=== PATIENT | female | born 1950 | race Caucasian/White ===

== ENCOUNTER 2023-10-13 09:31 | Emergency (ER) | payer MEDICARE, BC, SELFPAY ==
--- NOTE | ~2023-10-13 | US_ITS ---
EXAMINATION: US ABDOMEN LIMITED CLINICAL INFORMATION: Right upper quadrant mass. COMPARISON: None available. TECHNIQUE: Real-time imaging of the right upper quadrant abdominal viscera. FINDINGS: PANCREAS: Not visualized secondary to overlying bowel gas LIVER: The liver is normal in size. The liver contour is normal. There is diffuse increased liver parenchymal echogenicity, consistent with hepatic steatosis. Some focal fatty sparing is present around the gallbladder. No suspicious solid focal hepatic lesion. There is no intrahepatic biliary duct dilatation seen. GALLBLADDER: A 5 mm gallbladder polyp is present. The gallbladder is physiologically distended without evidence of stones, sludge, wall thickening or pericholecystic fluid. COMMON BILE DUCT: Normal in caliber measuring 0.3 cm in diameter. RIGHT KIDNEY: A benign 0.9 cm Bosniak class I lower pole renal cyst is noted which requires no additional imaging or follow up. No solid renal masses are seen. No hydronephrosis. No renal calculi or focal parenchymal lesions. The kidney measures 10.9 cm in maximum dimension. FREE FLUID: None. US/US abdomen limited IMPRESSION: 1. Hepatic steatosis. 2. 5 mm gallbladder polyp. No follow up is needed.
--- NOTE | ~2023-10-13 | CT_ITS ---
EXAMINATION: CT CHEST WITH IV CONTRAST CT ABDOMEN AND PELVIS WITH IV CONTRAST CLINICAL INFORMATION: History of breast cancer. Shortness of breath. Right upper quadrant mass, bulge. COMPARISON: Abdomen ultrasound from 10/13/2023. TECHNIQUE: Multidetector CT imaging examination of the chest, abdomen and pelvis was performed with intravenous administration of 85 mL Omnipaque 350. Axial images are displayed at 0.6 mm and 5 mm slice thickness. Coronal and sagittal reformatted images were generated at the technologist's workstation and submitted for review. This CT examination was performed using dose optimization techniques as appropriate, variously including the following: *Automated exposure control *Adjustment of mA and/or kV according to patient size (this includes techniques or standardized protocols for targeted exams where dose is matched to indication/reason for exam; i.e. extremities or head) *Use of iterative reconstruction technique DLP: 913 mGy-cm FINDINGS: CHEST - LUNGS AND PLEURA: Trachea and central airways are widely patent and normal in caliber. Mild centrilobular emphysema. Mild atelectasis in dependent aspect of each lower lobe. Findings include mild subpleural reticular opacity with mild traction bronchiolectasis in the anteroinferior aspect of the right middle lobe and likely chronic mild subpleural reticular opacity in the lateral left lower lobe. No focal consolidation, pleural effusion or pneumothorax. Small 0.3 cm solid, noncalcified subpleural nodule in the posterior right upper lobe (image 143, series 8). 0.3 cm calcified granuloma in the posterior right lower lobe (image 385, series 8). CARDIOVASCULAR: The heart size is normal. No pericardial effusion. Pulmonary arteries and thoracic aorta are normal in caliber. Mild atherosclerotic calcification of the aorta. No evidence of a central pulmonary embolism. MEDIASTINUM: No evidence of mediastinal mass. The esophagus is unremarkable. LYMPHATICS: No pathologic sized axillary, hilar or mediastinal lymph nodes. BONES AND THORACIC SOFT TISSUES: There are scattered macrocalcifications in the right breast which is smaller than the left breast; correlate for remote history of lumpectomy. Multilevel discovertebral degenerative change of the thoracic spine. No acute or suspicious osseous abnormality within the thorax. ABDOMEN AND PELVIS - HEPATOBILIARY: Liver has normal size, contour and attenuation. Gallbladder is unremarkable. No dilatation of bile ducts. PANCREAS: Mildly atrophied. No edema, mass or pancreatic ductal dilatation. SPLEEN: Normal. ADRENAL GLANDS: Normal. KIDNEYS AND URETERS: Kidneys are normal in size and attenuation. A few small bilateral simple renal cysts are present. No renal imaging follow-up is recommended for simple cysts. No nephrolithiasis, hydronephrosis or perinephric fluid collection. BOWEL AND PERITONEUM: No dilated loops of bowel. The appendix is normal. No overt bowel wall thickening. No mesenteric fat stranding or pneumoperitoneum. ABDOMINAL WALL: No abdominal wall mass or hernia. VESSELS: Mild atherosclerotic calcification of the abdominal aorta without aneurysm. LYMPH NODES: No pathologic sized lymph nodes in the abdomen or pelvis. No inguinal lymphadenopathy. BLADDER: Normal. PELVIC VISCERA: No uterine or adnexal mass. Small amount of simple free fluid is present in the pelvis. There is no organized, walled off fluid collection. MUSCULOSKELETAL: Transitional lumbosacral anatomy. The lowest lumbar vertebra is considered to represent L5. Facet osteoarthritis, vacuum disc degenerative change, mild grade 1 anterolisthesis and moderate spinal canal stenosis at L3-L4. Severe degenerative disc disease at L4-L5. The lowest lumbar vertebra (considered represent L5) has a hypertrophied right transverse process that articulates with the sacrum. CT/CT abdomen pelvis w IV con IMPRESSION: * No acute pulmonary disease. No pneumonia or pleural effusion. * Small 0.3 cm noncalcified and calcified nodules of the right upper and right lower lobes, respectively. * No suspicious nodule, mass or lymphadenopathy. * No evidence of metastatic disease within the abdomen or pelvis. * There is no evidence of an abdominal hernia or mass.
[2023-10-13 09:40] VITALS: BP 161/79; PULSE 58; RESP 16; TEMP 36.8; O2SAT 97; BMI 71.0
--- NOTE | 2023-10-13 09:58 | ED_ITS ---
HPI - Chest Pain General Chief Complaint: Chest Pain Stated Complaint: sob Time Seen by Provider: 10/13/23 09:54 Source: patient and family () Mode of arrival: ambulatory Limitations: no limitations History of Present Illness ED Provider: JAMES PHILIP PA-C HPI narrative: 73-year-old female with past medical history significant for right-sided breast cancer in remission since 1994, hypothyroidism, GERD, gout presents to the emergency department for evaluation of bulge to right upper abdomen which she noticed yesterday. She admits that she occasionally has some difficulty breathing secondary to the bulge. Reports associated chest tightness and pressure which occasionally radiates to her right ear. She reports history of acid reflux however this is not currently managed with medications. Admits there was mention of hiatal hernia in the past however has not followed up regarding this. Denies cardiac history. Denies fever, chills, nausea vomiting, diaphoresis, lower extremity pain/swelling. Denies recent travel or long car rides. Related Data Allergies Allergy/AdvReac Type Severity Reaction Status Date / Time Penicillins Allergy Mild Hives Verified 10/13/23 09:48 Review of Systems 2 Review of Systems: Constitutional: No fever, chills, fatigue, night sweats, weight changes ENT/Mouth: No ear pain, hearing loss, nasal congestion, sinus pain, rhinorrhea, sore throat Eyes: No eye pain, swelling, redness, vision changes, discharge Cardio: No palpitations, KAYE, orthopnea, peripheral edema, +chest pain Pulm: No SOB, cough, sputum, wheezing, dyspnea, hemoptysis GI: No nausea, vomiting, hematemesis, abdominal pain, diarrhea, constipation, hematochezia, melena : No irregular bleeding, dysuria, frequency, urgency, hesitancy, hematuria, flank pain, urinary flow changes, urinary incontinence or retention MSK: No back pain, neck pain, joint pain, myalgias Skin: No lesions, rashes Neuro: No weakness, numbness, paresthesias, LOC, dizziness, headache Psych: No anxiety/panic, depression, SI/HI, AH/VH All other systems reviewed and are negative. [facility] Past Medical History Attestation statement: The following information was validated with the patient. Source: old records reviewed and nursing notes reviewed Social History Social History Smoked in Last 30 Days: No Substance Use Type: Marijuana Substance Use Frequency: Occasionally Last Used Substance: Hours (ago) Advance Directives: No Advance Directives Information Provided: No Do you have a plan to hurt others: No Plan Physical Exam 2 Vital Signs: Vital Signs: Last Vital Signs Temp 98 F 10/13/23 15:01 Pulse 88 10/13/23 15:01 Resp 18 10/13/23 15:01 BP 130/70 10/13/23 15:01 Pulse Ox 98 10/13/23 15:01 O2 Del Method Room Air 10/13/23 15:01 BMI result Body Mass Index 71.0 Vital signs stable Const: General: cooperative, healthy appearing, comfortable and no acute distress Orientation/consciousness: patient oriented x3 Limitations: no limitations HEENT: Head: Yes normal to inspection, Yes No palpable skull fracture present, Yes normocephalic and Yes atraumatic Eyes: General: appearance normal, both eyes and all related structures C onjunctivae: conjunctivae normal Sclerae: sclerae normal Pupils: Equal, round and reactive pupils present EOM: EOMs intact bilaterally Neck: Neck: Yes normal visual inspection, Yes full ROM, Yes no lymphadenopathy and Yes no JVD Chest: Chest palpation & inspection: normal inspection of the chest and normal palpation of entire chest wall Resp: Effort & Inspection: normal respiratory effort and able to speak in complete sentences Auscultation: clear to auscultation bilaterally Cardio: Other: + 2+ radial pulses Jugular venous distension: no JVD Rate: regular rate Rhythm: regular rhythm GI: Other: + palpable bulge to RUQ. Abdomen otherw ise soft, rounded, nontender to palpation, no rebound tenderness or guarding. Normoactive bowel sounds. Inspection: Yes normal to inspection Skin: General skin exam: no rashes or lesions noted Neuro: General: patient oriented x3 and gait normal Cranial nerves: Yes Equal, round and reactive pupils present Extrem: General: Yes normal to inspection Course Course Course Narrative: 1434-- CBC without leukocytosis or left shift. No anemia. H&H stable. Chemistry without acute electrolyte abnormality requiring intervention. Normal liver and renal function. Troponin undetectable. EKG showing sinus bradycardia at a rate of 57 beats per minute, QT 438, QTC 426, no acute ischemic changes or ST elevations. ACS unlikely. She has tested negative for COVID, flu, RSV. Abdominal ultrasound showing incidental finding of hepatic steatosis along with 5 mm gallbladder polyp with which no further follow-up is necessary. CT chest without acute pulmonary disease, pneumonia or pleural effusion. There are incidental findings of small 0.3 cm noncalcified and calcified nodules within the right upper and right lower lobes. No suspicious nodule, mass or lymphadenopathy noted. CT abdomen / pelvis without mass or bleed. No obvious hernia. > I discussed all findings with patient. Unclear etiology for patient's abdominal bulge. On my re-evaluation, diaphragm is even on both sides. I can no longer appreciate any mass/ buldge. I have suspicion for possible reducible abdominal wall hernia that may be pushing up on the diaphragm at times making it somewhat difficult for patient to breathe. I advised patient follow up with her primary care provider for next steps. > Patient has remained stable throughout ED visit today. Discussed worrisome signs and symptoms and when to return to the ED. All questions answered at this time. Patient is agreeable with disposition and stable for discharge. Medications Administered Discontinued Medications Generic Name Dose Route Start Last Admin Trade Name Freq PRN Reason Stop Dose Admin Iohexol 85 ml 10/13/23 12:32 10/13/23 12:33 Iohexol 350 Mg/Ml 100 Ml Infus..Btl IV 10/13/23 12:33 85 ml ONCE ONE Administration Methylprednisolone Sodium Succinate 125 mg 10/13/23 10:18 10/13/23 12:06 Methylprednisolone Sod Succ 125 Mg/2 Ml Vial IVPUSH 10/13/23 10:19 125 mg ONCE ONE Administration Medical Decision Making Medical Decision Making [facility] Narrative: 73-year-old female with past medical history significant for right-sided breast cancer in remission since 1994, hypothyroidism, GERD, gout presents to the emergency department for evaluation of bulge to right upper abdomen which she noticed yesterday. Patient initially hypertensive to 161/79. Vitals otherwise WNL. She is nontoxic-appearing and in no acute distress. On exam, palpable bulge noted otherwise soft, nondistended, nontender to palpation, no rebound tenderness or guarding. Normoactive bowel sounds x4. Diaphragm appears equal on both sides. Differential diagnosis includes ACS, arrhythmia, costochondritis, pleuritis, msk sprain/ strain, hernia. Lower suspicion for PE, effusion, rupture aneurysm. Plan for labs, ekg, cxr, and re-evaluation. Differential Diagnosis Differential Diagnoses: The differential diagnosis associated with the presentation includes as above. Admission/Observation Not indicated. Lab Data MDM Lab Attestation statement: I reviewed the patient's lab results. as above. 10/13/23 11:28 10/13/23 11:28 Labs: Lab Results 10/13/23 Range/Units 11:28 WBC 4.0 L (4.8-10.8) X10*3/uL RBC 4.35 (4.20-5.50) X10*6/uL Hgb 13.9 (12.0-16.0) g/dl Hct 41.8 (37.0-47.0) % MCV 96.1 (80.0-98.0) fL MCH 32.0 (27.0-33.0) pg MCHC 33.3 (31.0-35.0) g/dl RDW 13.0 (11.0-16.0) % Plt Count 278 (160-400) X10*3/uL MPV 10.7 (9.4-12.3) fL Immature Gran % (Auto) 0.5 H (0.0-0.4) % Neut % (Auto) 56.9 (45-73) % Lymph % (Auto) 31.3 (20-40) % [place] % (Auto) 8.3 (2-11) % Eos % (Auto) 2.5 (0-4) % Baso % (Auto) 0.5 (0-2) % Lymph # (Auto) 1.2 (1.2-4.9) X10*3/uL [place] # (Auto) 0.3 (0.1-1.2) X10*3/uL Eos # (Auto) 0.1 (0.0-0.4) X10*3/uL Baso # (Auto) 0.0 (0.0-0.2) X10*3/uL Abs Immat Gran (auto) 0.02 (0.00-0.03) X10*3/uL Absolute Neuts (auto) 2.3 (2.0-8.3) x10*3/uL Absolute Nucleated RBC 0.000 (0.0-0.012) X10*3/uL Nucleated RBC % (auto) 0.0 (0.0-0.2) /100WBC Sodium 140 (135-145) mmol/L Potassium 5.0 (3.3-5.1) mmol/L Chloride 107 (96-108) mmol/L Carbon Dioxide 26 (22-29) mmol/L Anion Gap 12 (12-20) BUN 16 (9-16) mg/dL Creatinine 0.98 (0.5-1.4) mg/dL Estim Creat Clear Calc 91.4 Estimated GFR 56 Random Glucose 103 (60-115) mg/dL Calcium 9.4 (8.4-10.2) mg/dL Magnesium 2.2 (1.6-2.6) mg/dL Total Bilirubin 0.6 (0.0-1.0) mg/dL AST 24 (5-31) U/L ALT 22 (0-31) U/L Alkaline Phosphatase 62 (39-117) U/L Troponin I High Sens < 2.7 (<3.5-17.0) ng/L Total Protein 6.9 (6.5-8.0) g/dL Albumin 4.0 (3.5-5.0) g/dL Lipase 38 (8-78) U/L TSH 1.00 (0.32-4.0) uIU/mL Influenza Type A (PCR) NEGATIVE (Negative) Influenza Type B (PCR) NEGATIVE (Negative) RSV RNA Qual (PCR) NEGATIVE (Negative) SARS-CoV-2 RNA (RT-PCR) NEGATIVE (Negative) Independent Interpretation I performed an independent interpretation of an: EKG and Plain X-Ray Interpretation: EKG showing sinus bradycardia at a rate of 57 beats per minute, QT 438, QTC 426, no acute ischemic changes or ST elevations. CT chest Without focal consolidation or infiltrate, agree with radiologist's interpretation. CT abdomen/pelvis without acute bleed or mass, agree with radiologist's interpretation. Right upper quadrant abdominal ultrasound without evidence gallbladder wall thickening, agree with radiologist's interpretation. Radiology Impression Discussion of test interpretation with radiology: I have reviewed the radiologist's reading. Radiologist Impression: EXAMINATION: CT CHEST WITH IV CONTRAST CT ABDOMEN AND PELVIS WITH IV CONTRAST CLINICAL INFORMATION: History of breast cancer. Shortness of breath. Right upper quadrant mass, bulge. COMPARISON: Abdomen ultrasound from 10/13/2023. TECHNIQUE: Multidetector CT imaging examination of the chest, abdomen and pelvis was performed with intravenous administration of 85 mL Omnipaque 350. Axial images are displayed at 0.6 mm and 5 mm slice thickness. Coronal and sagittal reformatted images were generated at the technologist's workstation and submitted for review. This CT examination was performed using dose optimization techniques as appropriate, variously including the following: *Automated exposure control *Adjustment of mA and/or kV according to patient size (this includes techniques or standardized protocols for targeted exams where dose is matched to indication/reason for exam; i.e. extremities or head) *Use of iterative reconstruction technique DLP: 913 mGy-cm FINDINGS: CHEST - LUNGS AND PLEURA: Trachea and central airways are widely patent and normal in caliber. Mild centrilobular emphysema. Mild atelectasis in dependent aspect of each lower lobe. Findings include mild subpleural reticular opacity with mild traction bronchiolectasis in the anteroinferior aspect of the right middle lobe and likely chronic mild subpleural reticular opacity in the lateral left lower lobe. No focal consolidation, pleural effusion or pneumothorax. Small 0.3 cm solid, noncalcified subpleural nodule in the posterior right upper lobe (image 143, series 8). 0.3 cm calcified granuloma in the posterior right lower lobe (image 385, series 8). CARDIOVASCULAR: The heart size is normal. No pericardial effusion. Pulmonary arteries and thoracic aorta are normal in caliber. Mild atherosclerotic calcification of the aorta. No evidence of a central pulmonary embolism. MEDIASTINUM: No evidence of mediastinal mass. The esophagus is unremarkable. LYMPHATICS: No pathologic sized axillary, hilar or mediastinal lymph nodes. BONES AND THORACIC SOFT TISSUES: There are scattered macrocalcifications in the right breast which is smaller than the left breast; correlate for remote history of lumpectomy. Multilevel discovertebral degenerative change of the thoracic spine. No acute or suspicious osseous abnormality within the thorax. ABDOMEN AND PELVIS - HEPATOBILIARY: Liver has normal size, contour and attenuation. Gallbladder is unremarkable. No dilatation of bile ducts. PANCREAS: Mildly atrophied. No edema, mass or pancreatic ductal dilatation. SPLEEN: Normal. ADRENAL GLANDS: Normal. KIDNEYS AND URETERS: Kidneys are normal in size and attenuation. A few small bilateral simple renal cysts are present. No renal imaging follow-up is recommended for simple cysts. No nephrolithiasis, hydronephrosis or perinephric fluid collection. BOWEL AND PERITONEUM: No dilated loops of bowel. The appendix is normal. No overt bowel wall thickening. No mesenteric fat stranding or pneumoperitoneum. ABDOMINAL WALL: No abdominal wall mass or hernia. VESSELS: Mild atherosclerotic calcification of the abdominal aorta without aneurysm. LYMPH NODES: No pathologic sized lymph nodes in the abdomen or pelvis. No inguinal lymphadenopathy. BLADDER: Normal. PELVIC VISCERA: No uterine or adnexal mass. Small amount of simple free fluid is present in the pelvis. There is no organized, walled off fluid collection. MUSCULOSKELETAL: Transitional lumbosacral anatomy. The lowest lumbar vertebra is considered to represent L5. Facet osteoarthritis, vacuum disc degenerative change, mild grade 1 anterolisthesis and moderate spinal canal stenosis at L3-L4. Severe degenerative disc disease at L4-L5. The lowest lumbar vertebra (considered represent L5) has a hypertrophied right transverse process that articulates with the sacrum. CT/CT chest w IV con IMPRESSION: * No acute pulmonary disease. No pneumonia or pleural effusion. * Small 0.3 cm noncalcified and calcified nodules of the right upper and right lower lobes, respectively. * No suspicious nodule, mass or lymphadenopathy. * No evidence of metastatic disease within the abdomen or pelvis. * There is no evidence of an abdominal hernia or mass. EXAMINATION: US ABDOMEN LIMITED CLINICAL INFORMATION: Right upper quadrant mass. COMPARISON: None available. TECHNIQUE: Real-time imaging of the right upper quadrant abdominal viscera. FINDINGS: PANCREAS: Not visualized secondary to overlying bowel gas LIVER: The liver is normal in size. The liver contour is normal. There is diffuse increased liver parenchymal echogenicity, consistent with hepatic steatosis. Some focal fatty sparing is present around the gallbladder. No suspicious solid focal hepatic lesion. There is no intrahepatic biliary duct dilatation seen. GALLBLADDER: A 5 mm gallbladder polyp is present. The gallbladder is physiologically distended without evidence of stones, sludge, wall thickening or pericholecystic fluid. COMMON BILE DUCT: Normal in caliber measuring 0.3 cm in diameter. RIGHT KIDNEY: A benign 0.9 cm Bosniak class I lower pole renal cyst is noted which requires no additional imaging or follow up. No solid renal masses are seen. No hydronephrosis. No renal calculi or focal parenchymal lesions. The kidney measures 10.9 cm in maximum dimension. FREE FLUID: None. US/US abdomen limited IMPRESSION: 1. Hepatic steatosis. 2. 5 mm gallbladder polyp. No follow up is needed. Independent Historian Clinical information obtained from an independent historian. History obtained from or confirmed by: Spouse () External Record Review External record reviewed: Inpatient record, Office record, Outpatient record, Prior outpatient labs, Prior outpatient radiology, Primary care record and Outside ED record Social Determinants Patient?s care significantly limited by Social Determinants of Health including: Other Social Determinant of Health Critical Care Time Critical Care Time Critical Care Time: No Discharge Plan Discharge Clinical Impression: Abdominal fullness in right upper quadrant, Fatty liver, Incidental lung nodule, > 3mm and < 8mm Patient Disposition: Home, Self-Care Instructions: Liver Disease Diet (DC), Gastroesophageal Reflux Disease (ED), Acute Abdominal Pain (DC), Non-Alcoholic Fatty Liver Disease (ED), Pulmonary Nodules (ED) Additional Instructions: Your blood work today is reassuring. You tested negative for covid/rsv/flu. Your abdominal ultrasound shows incidental finding of fatty liver. See attached papers for diet modifications. You may also follow up with your PCP regarding this. CT scan of your abdomen is normal. CT scan of your chest shows tiny calcified nodules. No masses. This is something that should be followed up with your PCP for monitoring. As discussed, please follow up with your PCP. Return with new or worsening symptoms. In the case of an emergency call 911. Interventions: ED Discharge Assessment Last Done: 10/13/23 15:01 Discharge Date/Time: 10/13/23 15:02 Print Language: Grenadian
--- NOTE | 2023-10-13 10:18 | ECG_ITS ---
Test Reason : chest tightness Blood Pressure : / mmHG Vent. Rate : 057 BPM Atrial Rate : 057 BPM P-R Int : 168 ms QRS Dur : 074 ms QT Int : 438 ms P-R-T Axes : 017 050 043 degrees QTc Int : 426 ms Sinus bradycardia Otherwise normal ECG No previous ECGs available Referred By: Erika Gaffney Electronically Signed By:GEORGE KIMBLE MD
[2023-10-13 11:11] VITALS: BP 143/68; PULSE 55; RESP 12; O2SAT 97
[2023-10-13 11:33] LABS: MANUAL DIFF FLAG NO
[2023-10-13 11:35] LABS: Basophils Percent Auto 0.5 % (0-2); Eosinophils Absolute Auto 0.1 X10*3/uL (0.0-0.4); Eosinophils Percent Auto 2.5 % (0-4); Hematocrit 41.8 % (37.0-47.0); Hemoglobin 13.9 g/dl (12.0-16.0); Imm Gran Abs Auto 0.02 X10*3/uL (0.00-0.03); Imm Gran Pct Auto 0.5 % (0.0-0.4); Lymphocytes Absolute Auto 1.2 X10*3/uL (1.2-4.9); Lymphocytes Percent Auto 31.3 % (20-40); Mean Corpuscular HGB Conc 33.3 g/dl (31.0-35.0); Mean Corpuscular Volume 96.1 fL (80.0-98.0); Mean Platelet Volume 10.7 fL (9.4-12.3); Monocytes Absolute Auto 0.3 X10*3/uL (0.1-1.2); Monocytes Percent Auto 8.3 % (2-11); Neutrophils Absolute Auto 2.3 x10*3/uL (2.0-8.3); Neutrophils Percent Auto 56.9 % (45-73); Platelet Count 278 X10*3/uL (160-400); Red Blood Count 4.35 X10*6/uL (4.20-5.50)
[2023-10-13 11:52] LABS: Alanine Aminotransferase 22 U/L (0-31); Alkaline Phosphatase 62 U/L (39-117); Anion Gap 12 (12-20); Aspartate Amino Transferase 24 U/L (5-31); Bilirubin Total 0.6 mg/dL (0.0-1.0); Blood Urea Nitrogen 16 mg/dL (9-16); Calcium 9.4 mg/dL (8.4-10.2); Carbon Dioxide 26 mmol/L (22-29); Chloride 107 mmol/L (96-108); Creatinine Clr Calc Pharmacy 91.4; Estimated Glomerular Filt Rate 56; Glucose Random 103 mg/dL (60-115); Lipase 38 U/L (8-78); Magnesium 2.2 mg/dL (1.6-2.6); Sodium 140 mmol/L (135-145); Total Protein 6.9 g/dL (6.5-8.0)
[2023-10-13 11:57] LABS: Troponin-I High Sensitivity < 2.7 ng/L (<3.5-17.0)
[2023-10-13] MEDS: methylPREDNISolone Sod Succ 125 MG/2 ML VIAL IVPUSH (12:06)
[2023-10-13 12:14] LABS: Influenza A PCR NEGATIVE (Negative); Influenza B PCR NEGATIVE (Negative); Resp Syncy Virus RNA Qual PCR NEGATIVE (Negative); SARS COV2 PCR INHOUSE NEGATIVE (Negative)
[2023-10-13] MEDS: iohexoL 350 MG/ML 100 ML INFUS..BTL 85 ML IV (12:33)
[2023-10-13 15:01] VITALS: BP 130/70; PULSE 88; RESP 18; TEMP 36.6; O2SAT 98
== END 2023-10-13 15:02 | disposition home or self-care (01) ==
PROVIDERS: Physician Assistant Medical; Emergency Provider Emergency Medicine; PCP Internal Medicine
DX: R07.89 Other chest pain (principal); R06.02 Shortness of breath; R10.11 Right upper quadrant pain; K76.0 Fatty (change of) liver, not elsewhere classified; R91.1 Solitary pulmonary nodule; R53.83 Other fatigue; R00.1 Bradycardia, unspecified; Z79.899 Other long term (current) drug therapy; Z85.3 Personal history of malignant neoplasm of breast; Z03.818 Encounter for observation for suspected exposure to other biological agents ruled out
CPT/HCPCS: 0241U; 36415; 71260; 74177; 76705; 80053; 83690; 83735; 84443; 84484; 85025; 93005; 96374; 99284; J2919; Q9967

== ENCOUNTER → 2023-10-13 10:18 | Outpatient (BNV) | payer MEDICARE, BC, SELFPAY | PROVIDERS: Emergency Provider Emergency Medicine; PCP Internal Medicine; Visit Provider Internal Medicine Cardiovascular Disease | DX: R07.89 Other chest pain (principal); R00.1 Bradycardia, unspecified | CPT/HCPCS: 93010 ==

== ENCOUNTER 2025-03-22 06:01 | Emergency (ER) | payer MEDICARE, BC, SELFPAY ==
--- OUTSIDE RECORDS SUMMARY | 2020-11-27 10:33 | XMS_ITS | Encounter Summary ---
Author Organization [facility] Address [facility] [address] [place] [address] Phone Care Team Providers Care Meteorology Instructor Name Role Phone Torsten Weller MD Primary Care Provider [phone] Encounter Details Date Type Department Care Team (Late st Contact Info) Description 11/27/2020 11:33 AM EDT Hospital Encounter [facility] [address] [place] [address] Blanca Nair, GRID INSPECTOR[address] [address] [email or web address] Social History Tobacco Use Types Packs/Day Years Used Date Smoking Tobacco: Former Cigarettes Q uit: 1980 Smokeless Tobacco: Never Alcohol Use Standard Drinks/Week Comments Never 0 (1 standard drink = 0.6 oz pur e alcohol) sober since 01/19 Child or Family Care Answer Date Record ed Do you have problems with on e of the following making it difficult for you to work, study, or receive health care? No 07/11/2021 Education Answer Date Recorded Are you interested in more education? Not on duncan e 07/14/2023 Are you concerned about learning? Not on file 07/14/2023 No 07/14/2023 No 07/14/2023 Food Answer Date Recorded Within the past 6 months we worried whether our food would run out before we got money to buy more. Never True 07/11/2021 Within the past 6 months the food we bought just didn't last and we didn't have enough money to get more. Never True Residential Stability Answer Date Recor ded What is your housing situation today? I have bony ramon 07/11/2021 How many times have you move d in the past 12 months? Zero (I did not move) 07/11/2021 Paying for Meds Answer Date Recorded Do you have trouble paying for medicines? No 07/11/2021 Paying Utility Bills Answer Date Record ed Do you have trouble paying your heating or elect ricity bill? No 07/11/2021 Transportation Answer Date Recorded Has the lack of transportati on kept you from medical appointments or from getting medications? No 07/11/2021 Unemployment Answer Date Recorded Are you currently unemployed or working on a part-time or temporary basis, and looking for work? No 07/11/2021 Digital Access Answer Date Recorded No 08/27/2022 No 08/27/2022 Reliable internet access at home? Not on file 08/27/2022 Device with a working camera? Not on file Intimate Partner Violence Answer Date R ecorded Denied Basic Needs Not on file 05/11/2024 In the past 12 months have y ou been in a relationship with a person who hurts, threatens, or tries to control you? No 05/11/2024 Worried food would run out Not on file 05/11 In the past 12 months have y ou been in a relationship with a person who hurts, threatens, or tries to control you? 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 Not on file Not on file documented as of this encounter Plan of Treatment Upcoming Encounters Date Type Department Care Team (Late st Contact Info) Description 11/17/2024 Procedure Pass [address] [address] 07/04/2025 12:30 PM EDT Appointment [facility] [address] [place] [address] Sofie Velazquez MD [address] [facility], 2nd [place] [address] [email or web address] documented as of this encounter Procedures Procedure Name Priority Date/Time Associated Diagnosis Comments XR TOES 2 OR MORE VIEWS (LEFT) Urgent/patient waiting 11/27/2020 11:44 AM EDT Injury of left great toe, initial encounter documented in this encounter Results * XR Toes 2 or More Views (Left) (11/27/2020 11:44 AM EDT) Anatomical Region Laterality Modality Foot Left Computed Radiogr aphy 11/27/2020 12:1 0 PM EDT Impressions 11/27/2020 12:37 PM EDT No fracture or dislocation. ATTESTATION: Alexsandra Singh as teaching physician, have reviewed the images for this case and if necessary edited the report originally created by Jim Pimentel. Narrative 11/27/2020 12:37 PM EDT XR TOES 2 OR MORE VIEWS (LEFT) INDICATION: Left great toe pain after injury last night. COMPARISON: None. FINDINGS: No fracture. Normal alignment. Normal joint spaces. No soft tissue swelling. Procedure Note Alexsandra Gar MD - 11/27/2020 XR TOES 2 OR MORE VIEWS (LEFT) INDICATION: Left great toe pain after injury last night. COMPARISON: None. FINDINGS: No fracture. Normal alignment. Normal joint spaces. No softtissue swelling. IMPRESSION: No fracture or dislocation. ATTESTATION: Alexsandra Singh as teaching physician, have reviewed theimages for this case and if necessary edited the report originally createdby Jim Pimentel. Blanca Nair GRID INSPECTOR IMG XR LOWER EXTREMITY Josephine l Result documented in this encounter Visit Diagnoses Not on filedocumented in this encounter Additional Health Concerns Infection Onset Date Last Indicated Resolved Time COVID-19 12/29/2022 12/29/2022 01/19/2023 1:32 AM EDT documented as of this encounter Care Teams Meteorology Instructor Relationship Specialty Start Date End Date Torsten Weller MD [email or web address] PCP - General Family Medicine 04/21/17 03/05/21 documented as of this encounter Additional Source Comments The information contained in this document represents components of the legal health record. It is not the complete legal health record.[facility]
--- OUTSIDE RECORDS SUMMARY | 2023-11-04 04:00 | XMS_ITS ---
Author Organization [facility] [address] [place] Address [address] [place] [address] Care Team Providers Care Assistant Professor Of Archaeology Name Role Phone Hortencia CHURCHILL, Partha Primary Care Provider [facility] [phone] Encounters Encounter Location Date Provider Diagnosis [address] [address] 11/04/2023 Antonio Munoz Plan Of Treatment No Information Progress Notes * Lilly DHALIWAL BDOB: [birth year] (74 yo F)Acc No.[id number]:11/04/2023 Progress Note Patient: Lilly HALEY Provider: Vaibhav Mena DPM :1950 A ge:73 Y S ex:Female Date:11/04/2023 Address:[address] [id number] Pcp:Partha Burnett MD Subjective: * Chief Complaints: * * Medical History: Objective: * Vitals: Assessment: Plan: * Treatment: * Images: * The named appointment provid er may or may not be the originator of this progress note, and it is not deemed complete until electronically signed by the appointment provider. Sign off status: Pending * Provider: Vaibhav Mena DPM Date: 0 11/04/2023 Generated for Renee jiménez/Linda/Brittanysmitting on: 05/23/2024 08:11 AM EST
--- OUTSIDE RECORDS SUMMARY | 2023-11-06 05:15 | XMS_ITS ---
Author Organization [facility] Address [address] [place] [address] Care Team Providers Care Knotter Name Role Phone Hortencia CHURCHILL, Partha Primary Care Provider UnaAntonio Cole [phone] Chavarria Encounters Encounter Location Date Provider Diagnosis [facility] [address] [place] [address] 11/06/2023 Antonio Munoz Plan Of Treatment No Information Progress Notes * Lilly DHALIWAL BDOB: [birth year] (74 yo F)Acc No.[id number]:11/06/2023 Progress Notes Patient: Lilly HALEY Provider: Vaibhav Mena DPM :1950 A ge:73 Y S ex:Female Date:11/06/2023 Address: [address] [id number] Pcp:Partha Burnett MD Subjective: * Chief Complaints: [...] 11/06/2023 Generated for Printi ng/Fajordang/eTransmitting on: 1 05/23/2024 08:11 AM EST
--- NOTE | ~2025-03-22 | XR_ITS ---
EXAMINATION: XR LUMBAR SPINE 2-3 VIEWS HISTORY: pain COMPARISON: Correlation is made with a CT of the abdomen and pelvis dated 10/13/2023. FINDINGS: AP, lateral, and coned down views of the lumbar spine are submitted. Osseous mineralization is normal. Five nonrib-bearing lumbar vertebral bodies are identified, maintaining normal height without evidence of fracture. There is grade I spondylolisthesis of L3 on L4, as noted on CT.. There is severe degenerative disc disease at the L4-5 level, with disc space narrowing and osteophyte formation. Milder changes are noted at the remaining levels. There is osteoarthritis of the facet joints. The visualized paraspinal soft tissues are unremarkable. XR/XR lumbar spine 2-3V IMPRESSION: Grade I spondylolisthesis of L3 on L4. Degenerative changes as described. Electronically signed by: Arden Everett MD 03/22/2025 08:44 AM [facility]
--- NOTE | ~2025-03-22 | CT_ITS ---
EXAMINATION: CT LUMBAR SPINE WITHOUT CONTRAST CLINICAL INFORMATION: Lumbar back pain COMPARISON: X-ray [address] abdomen pelvis October 13, 2023 TECHNIQUE: Axial imaging was performed from mid T12 through the lower sacrum coccygeal region without IV contrast. Coronal and sagittal reformatted images were generated from the original axial data set. ALARA: The examination used one or more of the following radiation dose reduction techniques: Automated exposure control, iterative reconstruction, and/or adjustment of mA and/or kV. FINDINGS: There are mild atherosclerotic calcifications. There is a small benign simple renal cyst involving the medial mid left kidney. There are 5 gno-xqn-tzzbihh lumbar segments. There is sacralization of L5 with broad pseudoarticulation of the right and minimal pseudoarticulation of the left transverse processes. There is degenerative sclerosis and osteophytes involving the right pseudoarticulation. Evaluation of disc spaces and neural foramina is limited compared to MRI. T12-L1: There is mild loss of disc height and degenerative endplate changes with Schmorl's nodes and broad-based disc bulge. L1-L2: There is mild loss disc height and small Schmorl's nodes with broad-based disc bulge. L2-L3: Ligament flavum thickening and broad-based disc bulge results in mild spinal stenosis and mild foraminal narrowing, greater on the left. L3-L4: There is subtle anterolisthesis, mild loss of disc height, vacuum phenomena, and broad-based disc bulge. There is moderate facet arthropathy and ligamentum flavum thickening resulting in moderate to severe spinal stenosis and minimal foraminal narrowing. L4-L5: There is severe loss of disc height with degenerative endplate changes, endplate sclerosis, endplate osteophytes and minimal grade 1 retrolisthesis. There is moderate facet arthropathy and mild, possibly moderate spinal stenosis. There is moderate bilateral foraminal narrowing. L5-S1: There is minimal disc bulge and endplate osteophytes with mild facet arthropathy not clearly narrowing the spinal canal. There is mild bilateral foraminal narrowing, greater on the right. CT/CT lumbar spine wo IV con IMPRESSION: Multilevel degenerative disc disease and facet arthropathy. No acute bony abnormality. L2-L3: There is mild spinal stenosis. L3-L4: There is moderate to severe spinal stenosis. L4-L5: There is mild, possibly moderate spinal stenosis. There is moderate bilateral foraminal narrowing. Electronically signed by: Juan A Celeste MD 03/22/2025 11:08 AM [facility]
[2025-03-22 06:04] VITALS: BP 177/77; PULSE 57; RESP 20; TEMP 36.1; O2SAT 100; BMI 27.8
--- OUTSIDE RECORDS SUMMARY | 2025-03-22 08:11 | XMS_ITS | Encounter Summary ---
Author Organization [facility] Address [address] [facility] [address] [place] [address] Phone Care Team Providers Care Human Resources Analyst Name Role Phone Partha Burnett MD Primary Care Provider [phone] Alycia Rolle MD Unavailable [phone] Partha Burnett MD Unavailable [phone] Encounter Details Date Type Department Care Team (Late st Contact Info) Description 02/10/2024 Procedure Pass [facility] - [address] [place] [address] Social History Tobacco Use Types Packs/Day Years [...] Intimate Partner Violence Answer Date R ecorded Are you denied basic needs s uch as food, clothing, or medical care? No 07/24/2022 In the past 12 months have y ou been in a relationship with a person who hurts, threatens, or tries to control you? No 07/24/2022 Are you denied basic needs s uch as food, clothing, or medical care? No 07/24/2022 In the past 12 months have y ou been in a relationship with a person who hurts, threatens, or tries to control you? 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 Not on file documented as of this encounter Plan of Treatment Upcoming Encounters Date Type Department Care Team (Late st Contact Info) Description 11/17/2024 Procedure Pass [address] [address] 07/04/2025 12:30 PM EDT Appointment [facility] Main [facility] [address] [place] [address] Sofie Velazquez MD [address] [facility], 2nd [place] [address] [email or web address] documented as of this encounter Visit Diagnoses Not on filedocumented in this encounter Additional Health Concerns Assessment Noted Time PHQ-2 Depression Total Score: 1 05/11/19 25 8:14 AM EST documented as of this encounter Care Teams Human Resources Analyst Relationship Specialty Start Date End Date Partha Burnett MD [address] [facility], [address] [place] [address] PCP - General Internal Medicine 07/11/21 Alycia Rolle MD [address] [facility], [address] [place] [address] Obstetrics and Gynecology 07/11/21 Partha Burnett MD [address] [facility], [address] [place] [address] Insurance Assigned Provider 07/05/23 documented as of this encounter Additional Source Comments The information contained in this document represents components of the legal health record. It is not the complete legal health record.[facility]
--- OUTSIDE RECORDS SUMMARY | 2025-03-22 08:11 | XMS_ITS | Encounter Summary ---
Author Organization [facility] Address [address] [place] [address] Phone Care Team Providers Care Warehouse Operations Manager Name Role Phone Torsten Weller MD Primary Care Provider [phone] Moira Griffin MD Primary Care Provider Partha Burnett MD Primary Care Provider [phone] Alycia Rolle MD Unavailable [phone] Partha Burnett MD Unavailable [phone] Reason for Referral * Physical Therapy (Routine) - Closed Specialty Diagnoses / Procedures Referred By Duyen hyde Referred To Contact Physical Therapy Diagnoses Encounter for rehabilitation Torsten Weller MD Phone: tel: fax: [email or web address] [facility] [address] [place] [address] Phone: tel: Referral ID Status Reason Start Date Expiration Date Visits Re quested Visits Authorized [id number] Closed 03/06/2018 03/06/2019 16 16 Encounter Details Date Type Department Care Team (Late st Contact Info) Description 03/06/2018 Transcribe Orders [facility] [address] [place] [address] Torsten Weller MD [address] [place] [address] [place] [address] [email or web address] Encounter for rehabilitation (Primary Dx) Social History Tobacco Use Types Packs/Day Years Used Date Smoking Tobacco: Never Assessed Comments Unknown Sex and Gender Information Value Date Recorded Sex Assigned at Female 02/18/2021 8:19 AM EST Legal Sex Female 4:20 PM EST Gender Identity Female 12/29/2022 8:47 AM EDT Sexual Orientation Straight 02/18/2021 8: 19 AM EST documented as of this encounter Plan of Treatment Upcoming Encounters Date Type Department Care Team (Late st Contact Info) Description 11/17/2024 Procedure Pass [address] [address] 07/04/2025 12:30 PM EDT Appointment [address] [address] Sofie Velazquez MD 15 [facility], [address] [place] [address] [email or web address] Scheduled Referrals Name Type Priority Associated Diagnoses Orde r Schedule Ambulatory referral to [facility] Physical Therapy Outpatient Referral Routine Encounter for rehabilitation Ordered: 03/06/2018 documented as of this encounter Visit Diagnoses Diagnosis Encounter for rehabilitation- Primary documented in this encounter Additional Health Concerns Infection Onset Date Last Indicated Resolved Time CoV-Risk 07/23/2020 07/23/2020 2020 1:23 AM EDT COVID-19 12/29/2022 12/29/2022 01/19/2023 1:32 AM EDT documented as of this encounter Care Teams Warehouse Operations Manager Relationship Specialty Start Date End Date Torsten Weller MD PCP - General Family Medicine 04/21/17 03/05/21 Moira Griffin MD [email or web address] PCP - General Internal Medicine 03/06/21 07/10/21 Partha Burnett MD [address] [place] [address], [address] [place] [address] PCP - General Internal Medicine 07/11/21 Alycia Rolle MD [address] [place] [address], [address] [place] [address] [email or web address] Obstetrics and Gynecology 07/11/21 Partha Burnett MD [address] [place] [address], [address] [place] [address] [email or web address] Insurance Assigned Provider 07/05/23 documented as of this encounter Additional Source Comments The information contained in this document represents components of the legal health record. It is not the complete legal health record.[facility]
--- OUTSIDE RECORDS SUMMARY | 2025-03-22 08:11 | XMS_ITS | Encounter Summary ---
Author Organization [facility] Address [address] [place] [address] [place] [address] Phone Care Team Providers Care Casing Crew Name Role Phone Partha Burnett MD Primary Care Provider [phone] Alycia Rolle MD Unavailable [phone] Partha Burnett MD Unavailable [phone] Encounter Details Date Type Department Care Team (Late st Contact Info) Description 12/26/2023 Telephone [facility] Clinic [address] [place], [place] [id number] Partha Burnett MD [address] [facility], [address] [place] [address] [email or web address] Social History Tobacco Use Types Packs/Day Years [...] 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 Not on file documented as of this encounter Plan of Treatment Upcoming Encounters Date Type Department Care Team (Late st Contact Info) Description 11/17/2024 Procedure Pass [facility], [facility] [address] [place] [address] 07/04/2025 12:30 PM EDT Appointment [facility] [address] [place] [address] Sofie Velazquez MD [address] [facility], 2nd [place] [address] documented as of this encounter Visit Diagnoses Not on filedocumented in this encounter Additional Health Concerns Assessment Noted Time PHQ-2 Depression Total Score: 0 02/28/20 22 12:56 PM EST documented as of this encounter Care Teams Casing Crew Relationship Specialty Start Date End Date Partha Burnett MD [address] [facility], [address] [place] [address] PCP - General Internal Medicine 07/11/21 Alycia Rolle MD [address] [facility], [address] [place] [address] Obstetrics and Gynecology 07/11/21 Partha Burnett MD [address] [place] [address], [address] [place] [address] Insurance Assigned Provider 07/05/23 documented as of this encounter Additional Source Comments The information contained in this document represents components of the legal health record. It is not the complete legal health record.[facility]
--- OUTSIDE RECORDS SUMMARY | 2025-03-22 08:11 | XMS_ITS | Encounter Summary ---
Author Organization Formerly [facility] Address [address] [place] [address] Phone Care Team Providers Care Mechanical Design Drafter Name Role Phone Torsten Weller MD Primary Care Provider [phone] Moira Griffin MD Primary Care Provider Partha Burnett MD Primary Care Provider [phone] Alycia Rolle MD Unavailable [phone] Partha Burnett MD Unavailable [phone] Encounter Details Date Type Department Care Team (Latest Contact Info) Description 01/04/2021 Transcribe Orders Virtual Department [address] [place] [address] Moira Griffin MD [address] [place] [phone] [email or web address] Breast screening (Primary Dx) Social History Tobacco Use Types Packs/Day Years Used Date Smoking Tobacco: Former Cigarettes Q uit: 1980 Smokeless Tobacco: Never Alcohol Use Standard Drinks/Week Comments Yes 14 (1 standard drink = 0.6 oz pu re alcohol) 2 drinks per day Comments Unknown Sex and Gender Information Value Date Recorded Sex Assigned at Female 02/18/2021 8:19 AM EST Legal Sex Female 4:20 PM EST Gender Identity Female 12/29/2022 8:47 AM EDT Sexual Orientation Straight 02/18/2021 8: 19 AM EST documented as of this encounter Plan of Treatment Upcoming Encounters Date Type Department Care Team (Late st Contact Info) Description 11/17/2024 Procedure Pass [address] [address] 07/04/2025 12:30 PM EDT Appointment [address] [address] Sofie Velazquez MD 15 [facility], 2nd [place] [address] [email or web address] documented as of this encounter Results * BI MAMMOGRAM SCREENING WITH TOMOSYNTHESIS WITH CAD (BILATERAL) (03/06/2021 9:57 AM EST) Anatomical Region Laterality Modality Breast Left, Breast Right, Breast Bilateral Bila teral Mammography 03/19/2021 9:18 AM EST Impressions 03/19/2021 9:22 AM EST Chronic right breast postsurgical changes, extensive calcifications and presumed left breast postsurgical changes which should be correlated clinically. No definite evidence of malignancy. Recommend routine annual surveillance. BI-RADS CATEGORY: 2 - Benign finding. DENSITY: There are scattered fibroglandular densities. Narrative 03/19/2021 9:22 AM EST 70-year-old female with no current breast symptoms. Comparison made to previous on 01/19/2020 and as far back as 06/19/2018. Interpretation made in conjunction with computer-aided detection and tomosynthesis. There are scattered areas of fibroglandular density. Stable right breast post therapy changes, extensive calcifications and posterior left breast distortion which may be due to prior surgery and should be correlated clinically. There are no suspicious masses, areas of architectural distortion, or suspicious clusters of microcalcifications. Procedure Note Partha Rader MD - 03/19/2021 70-year-old female with no current breast symptoms. Comparison made toprevious on 01/19/2020 and as far back as 06/19/2018. Interpretation madein conjunction with computer-aided detection and tomosynthesis. There are scattered areas of fibroglandular density. Stable right breastpost therapy changes, extensive calcifications and posterior left breastdistortion which may be due to prior surgery and should be correlatedclinically. There are no suspicious masses, areas of architectural distortion, orsuspicious clusters of microcalcifications. IMPRESSION: Chronic right breast postsurgical changes, extensive calcifications andpresumed left breast postsurgical changes which should be correlatedclinically. No definite evidence of malignancy. Recommend routine annualsurveillance. BI-RADS CATEGORY: 2 - Benign finding. DENSITY: There are scattered fibroglandular densities. us Moira Griffin MD IMG MG EXAMS Final Resul t documented in this encounter Visit Diagnoses Diagnosis Breast screening- Primary Breast screening, unspecified Breast screening Breast screening, unspecified documented in this encounter Additional Health Concerns Infection Onset Date Last Indicated Resolved Time COVID-19 12/29/2022 12/29/2022 01/19/2023 1:32 AM EDT documented as of this encounter Care Teams Mechanical Design Drafter Relationship Specialty Start Date End Date Torsten Weller MD [email or web address] PCP - General Family Medicine 04/21/17 03/05/21 Moira Griffin MD PCP - General Internal Medicine 03/06/21 07/10/21 Partha Burnett MD [address] [place] [address], [address] [place] [address] PCP - General Internal Medicine 07/11/21 Alycia Rolle MD [address] [place] [address], [address] [place] [address] [email or web address] Obstetrics and Gynecology 07/11/21 Partha Burnett MD [address] [place] [address], [address] [place] [address] [email or web address] Insurance Assigned Provider 07/05/23 documented as of this encounter Additional Source Comments The information contained in this document represents components of the legal health record. It is not the complete legal health record.[facility]
--- OUTSIDE RECORDS SUMMARY | 2025-03-22 08:11 | XMS_ITS | Encounter Summary ---
Author Organization [facility] Address [address] [place] [address] Phone Care Team Providers Care Foam Molder Name Role Phone Moira Griffin MD Primary Care Provider Partha Burnett MD Primary Care Provider + [phone] Aylcia Rolle MD Unavailable [phone] Partha Burnett MD Unavailable [phone] Encounter Details Date Type Department Care Team (Late st Contact Info) Description 03/06/2021 Ancillary Orders [facility],[address] [address] System, Provider [place] In, [place] [address] Social History Tobacco Use Types Packs/Day Years Used Date Smoking Tobacco: Former Cigarettes Q uit: 1980 Smokeless Tobacco: Never Alcohol Use Standard Drinks/Week Comments Not Currently 0 (1 standard drink = 0.6 oz pur e alcohol) Comments No Sex and Gender Information Value Date Recorded Sex Assigned at Female 02/18/2021 8:19 AM EST Legal Sex Female 4:20 PM EST Gender Identity Female 12/29/2022 8:47 AM EDT Sexual Orientation Straight 02/18/2021 8: 19 AM EST documented as of this encounter Plan of Treatment Upcoming Encounters Date Type Department Care Team (Late st Contact Info) Description 11/17/2024 Procedure Pass [facility], [facility] [address] [place] [address] 07/04/2025 12:30 PM EDT Appointment [facility], Mammography- [facility] [address] [place] [address] Sofie Velazquez MD 15 [facility], 2nd [place] [address] documented as of this encounter Results * Mammogram Outside (No Interpretation) (06/19/2018 12:00 AM EDT) Narrative SYSTEMGENERATED, DOCUMENTATION - 03/06/2021 9:29 AM EST This study is for PACS storage only and not for interpretation. us Provider Not In System PhD IMG OUTSIDE IMAGING W /OUT INTERPRETATION Final Result documented in this encounter Visit Diagnoses Not on filedocumented in this encounter Additional Health Concerns Infection Onset Date Last Indicated Resolved Time COVID-19 12/29/2022 12/29/2022 01/19/2023 1:32 AM EDT documented as of this encounter Care Teams Foam Molder Relationship Specialty Start Date End Date Moira Griffin MD PCP - General Internal Medicine 03/06/21 07/10/21 Partha Burnett MD [address] [place] [address], [address] [place] [address] PCP - General Internal Medicine 07/11/21 Alycia Rolle MD 22 [facility], [address] [place] [address] Obstetrics and Gynecology 07/11/21 Partha Burnett MD [address] [place] [address], [address] [place] [address] Insurance Assigned Provider 07/05/23 documented as of this encounter Additional Source Comments The information contained in this document represents components of the legal health record. It is not the complete legal health record.[facility]
--- OUTSIDE RECORDS SUMMARY | 2025-03-22 08:11 | XMS_ITS | Encounter Summary ---
Author Organization [facility] Address [address] [place] [address] Phone Care Team Providers Care Wire Galvanizer Name Role Phone Torsten Weller MD Primary Care Provider [phone] Moira Griffin MD Primary Care Provider Partha Burnett MD Primary Care Provider + [phone] Alycia Rolle MD Unavailable [phone] Partha Burnett MD Unavailable [phone] Encounter Details Date Type Department Care Team (Late st Contact Info) Description 01/04/[address] [address] Social History Tobacco Use Types Packs/Day Years [...] (Late st Contact Info) Description 11/17/[address] [address] 07/04/2025 12:30 PM EDT Appointment [facility] [address] [place] [address] Sofie Velazquez MD 15 [facility], 2nd [place] [address] [email or web address] documented as of this encounter Visit Diagnoses Not on filedocumented in this encounter Additional Health Concerns Infection Onset Date Last Indicated Resolved Time COVID-19 12/29/2022 12/29/2022 01/19/2023 1:32 AM EDT documented as of this encounter Care Teams Wire Galvanizer Relationship Specialty Start Date End Date Torsten Weller MD PCP - General Family Medicine 04/21/17 03/05/21 Moira Griffin MD PCP - General Internal Medicine 03/06/21 07/10/21 Partha Burnett MD [address] [place] [address], [address] [place] [address] PCP - General Internal Medicine 07/11/21 Alycia Rolle MD 22 [facility], [address] [place] [address] Obstetrics and Gynecology 07/11/21 Partha Burnett MD [address] [place] [address], [address] [place] [address] Insurance Assigned Provider 07/05/23 documented as of this encounter Additional Source Comments The information contained in this document represents components of the legal health record. It is not the complete legal health record.[facility]
--- OUTSIDE RECORDS SUMMARY | 2025-03-22 08:12 | XMS_ITS | Encounter Summary ---
Author Organization [facility] Address [address] [place] [address] Phone Care Team Providers Care Facilities Maintenance Supervisor Name Role Phone Torsten Weller MD Primary Care Provider Moira Griffin MD Primary Care Provider Partha Burnett MD Primary Care Provider + [phone] Alycia Rolle MD Unavailable [phone] Partha Burnett MD Unavailable [phone] Encounter Details Date Type Department Care Team (Late st Contact Info) Description 10/23/2017 Procedure Pass [facility], [address] [address] Social History Tobacco Use Types Packs/Day Years Used Date Smoking Tobacco: Never Assessed Comments Unknown Sex and Gender Information Value Date Recorded Sex Assigned at Female 02/18/2021 8:19 AM EST Legal Sex Female 4:20 PM EST Gender Identity Female 12/29/2022 8:47 AM EDT Sexual Orientation Straight 02/18/2021 8: 19 AM EST documented as of this encounter Last Filed Vital Signs Vital Sign Reading Time Taken Comments Blood Pressure - - Pulse - - Temperature - - Respiratory Rate - - Oxygen Saturation - - Inhaled Oxygen Concentration - - Weight 81.2 kg (179 lb) 10/26/2017 11:41 AM EDT Height 167.6 cm (5' 6 ) 10/26/2017 11:41 AM EDT Body Mass Index 28.89 10/26/2017 11:41 AM EDT documented in this encounter Plan of Treatment Upcoming Encounters Date Type Department Care Team (Late st Contact Info) Description 11/17/2024 Procedure Pass [address] [address] 07/04/2025 12:30 PM EDT Appointment [address] [address] Sofie Velazquez MD 15 [facility], 2nd [place] [address] [email or web address] documented as of this encounter Visit Diagnoses Not on filedocumented in this encounter Additional Health Concerns Infection Onset Date Last Indicated Resolved Time CoV-Risk 07/23/2020 07/23/2020 2020 1:23 AM EDT COVID-19 12/29/2022 12/29/2022 01/19/2023 1:32 AM EDT documented as of this encounter Care Teams Facilities Maintenance Supervisor Relationship Specialty Start Date End Date Torsten Weller MD PCP - General Family Medicine 04/21/17 03/05/21 Moira Griffin MD PCP - General Internal Medicine 03/06/21 07/10/21 Partha Burnett MD 22 [facility], [address] [place] [address] PCP - General Internal Medicine 07/11/21 Alycia Rolle MD 22 [facility], [address] [place] [address] Obstetrics and Gynecology 07/11/21 Partha Burnett MD [address] [place] [address], [address] [place] [address] [email or web address] Insurance Assigned Provider 07/05/23 documented as of this encounter Additional Source Comments The information contained in this document represents components of the legal health record. It is not the complete legal health record.[facility]
--- OUTSIDE RECORDS SUMMARY | 2025-03-22 08:12 | XMS_ITS | Patient Health Record ---
Author Organization [facility] Address [address] [facility] [place] [address] Care Team Providers Care Coffee Grinder Name Role Phone Partha Burnett MD Primary Care Provider Antonio Hanna Unavailable [phone] Allergies Allergen (clinical drug ingredient) Drug/Non Drug Allergy documented on EMR Reaction Allergy Type Onset Date Status Penicillin hives ,SOB Drug Allergy Activ e Reason For Referral No Information Medications Medication SIG (Take, Route, Frequency, Duration) Notes Start Date End Date Status FLUoxetine HCl 20 MG TAKE 1 CAPSULE BY M OUTH EVERY DAY Oral; Duration: 90 Active Levothyroxine Sodium 125 MCG as directed Orally Once a day Active Lisinopril 20 MG Oral; Duration: 90 Active Vitamin D3 Active Ciclopirox Olamine 0.77 % 1 application to affected area Externally Twice a day to effected areas on feet; Duration: 30 days Active Ezetimibe 10 MG TAKE 1 TABLET BY JITENDRA TH EVERY DAY Oral; Duration: 90 Not-Taking Ciclopirox 0.77 % 1 application to affected area Externally Twice a day; Duration: 365 days Not-Taking LamISIL 250 MG 1 tablet Orally Once a day; Duration: 30 days Not-Takin g Omeprazole Active Acyclovir 200 MG 1 capsule Orally Thr ee times a day Active Atenolol 25 MG Oral; Duration: 30 Active Immunizations Vaccine Route Administration Date Status Comme nts Influenza Unknown 02/02/2021 Administered COVID-19 Pfizer BioNTech Vaccine Unknown 01/26/2021 Administered 1st 06/02/2020 2nd 06/23/2020 Social History Tobacco Use: Social History Observation Description Date Details (start date - stop date) Former Smoker NA - NA Tobacco Use/Smoking Question Answer Notes Are you a: former smoker Additional Findings: Tobacco Non-User Current no n-smoker Alcohol Screen Question Answer Notes Did you have a drink contain ing alcohol in the past year? Yes How often did you have 6 or more drinks on one occasion in the past year? Less than monthly (1 point) Points 1 Interpretation Negative Tobacco use other than smoking: Question Answer Notes Are you an other tobacco user? No Problems Problem Type SNOMED Code ICD Code Onset Dates Problem Status W/U Status Risk Notes Problem Tinea unguium (185003502) Tinea unguium (B35.1) Active confirmed Problem Non-pressure chronic ulcer of other part of right foot with fat layer exposed (L97.512) Active confirmed Problem Skin ulcer of toe of right foot with fat layer exposed (L97.512) Active confirmed Problem Skin ulcer of toe of left foot with fat layer exposed (L97.522) Active confirmed Plan Of Treatment Pending Test Test Name Order Date *Liver Function Test (LFT) 02/09/2021 [id number] SKIN/TISSUE 10/31/2023 [id number] SKIN/TISSUE 02/03/2024 Insurance Providers Payer Name Payer Address Payer Phone Subscriber Number Group Number Insured Name Patient Relationship to Insured Coverage Start Date Coverage End Date Medicare National [employer] [address] [place] [address] [id number] Lilly Dhaliwal Self - patient is the insured [facility] [address] [place] [address] [id number] Lilly Dhaliwal Self - patient is the insured Medical (General) History Medical History History ICD Code Back,Hip,and Knee pain Broken bones CAD (Cholesterol) Cancer Cataracts Gout Headaches/Migraines High blood pressure Numbness Reflux ( GERD) Sciatica chronic sinusitis Measles Mumps Chicken pox Surgical History Surgery Date(Month/Year) lumpectomy 1994 tonsillectomy 1970 left rotator cuff 02/06/23
--- OUTSIDE RECORDS SUMMARY | 2025-03-22 08:12 | XMS_ITS | Encounter Summary ---
Author Organization [facility] Address [address] [place] [address] Phone Care Team Providers Care Briquette Maker Name Role Phone Partha Burnett MD Primary Care Provider [phone] Alycia Rolle MD Unavailable [phone] Partha Burnett MD Unavailable [phone] Encounter Details Date Type Department Care Team (Late st Contact Info) Description 03/18/2025 Orders Only [facility] [address] [place] [address] Provider, MD Marcelo [address] [place] [address] Social History Tobacco Use Types Packs/Day Years [...] 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 Not on file Not on file documented as of this encounter Plan of Treatment Upcoming Encounters Date Type Department Care Team (Late st Contact Info) Description 11/17/2024 Procedure Pass [address] [address] 07/04/2025 12:30 PM EDT Appointment [facility] [address] [place] [address] Sofie Velazquez MD 15 [facility], 2nd [place] [address] documented as of this encounter Procedures Procedure Name Priority Date/Time Associated Diagnosis Comments OUTSIDE IMAGING Routine 03/17/2025 2:27 PM EST documented in this encounter Results * Outside Imaging Report Only (03/17/2025 2:27 PM EST) us Historical Provider MD HORN XR CHEST Edited Re sult - Final documented in this encounter Visit Diagnoses Not on filedocumented in this encounter Additional Health Concerns Assessment Noted Time PHQ-2 Depression Total Score: 1 05/11/19 25 8:14 AM EST documented as of this encounter Care Teams Briquette Maker Relationship Specialty Start Date End Date Partha Burnett MD 22 [facility], [address] [place] [address] PCP - General Internal Medicine 07/11/21 Alycia Rolle MD 22 [facility], [address] [place] [address] Obstetrics and Gynecology 07/11/21 Partha Burnett MD 22 [facility], [address] [place] [address] Insurance Assigned Provider 07/05/23 documented as of this encounter Additional Source Comments The information contained in this document represents components of the legal health record. It is not the complete legal health record.[facility]
--- OUTSIDE RECORDS SUMMARY | 2025-03-22 08:12 | XMS_ITS | Encounter Summary ---
Author Organization [facility] Address [address] [place] [address] Phone Care Team Providers Care Lumber Driver Name Role Phone Moira Griffin MD Primary Care Provider [phone] Partha Burnett MD Primary Care Provider + [phone] Alycia Rolle MD Unavailable [phone] Partha Burnett MD Unavailable [phone] Encounter Details Date Type Department Care Team (Late st Contact Info) Description 03/06/2021 Ancillary Orders [facility],[address] [address] System, Provider Not In, [place] [address] Social History Tobacco Use Types Packs/Day Years [...] st Contact Info) Description 11/17/2024 Procedure Pass [facility], [facility] [address] [place] [address] 07/04/2025 12:30 PM EDT Appointment [facility], [facility] [address] [place] [address] Sofie Velazquez MD 15 [facility], 2nd [place] [address] [email or web address] documented as of this encounter Results * US Breast Outside (No Interpretation) (02/29/2020 12:00 AM EST) Narrative SYSTEMGENERATED, DOCUMENTATION - 03/06/2021 9:33 AM EST This study is for PACS storage only and not for interpretation. us Provider Not In System PhD IMG OUTSIDE IMAGING W /OUT INTERPRETATION Final Result documented in this encounter Visit Diagnoses Not on filedocumented in this encounter Additional Health Concerns Infection Onset Date Last Indicated Resolved Time COVID-19 12/29/2022 12/29/2022 01/19/2023 1:32 AM EDT documented as of this encounter Care Teams Lumber Driver Relationship Specialty Start Date End Date Moira Griffin MD [email or web address] PCP - General Internal Medicine 03/06/21 07/10/21 Partha Burnett MD [address] [place] [address], [address] [place] [address] PCP - General Internal Medicine 07/11/21 Alycia Rolle MD 22 [facility], [address] [place] [address] [email or web address] Obstetrics and Gynecology 07/11/21 Partha Burnett MD [address] [place] [address], [address] [place] [address] Insurance Assigned Provider 07/05/23 documented as of this encounter Additional Source Comments The information contained in this document represents components of the legal health record. It is not the complete legal health record.[facility]
--- OUTSIDE RECORDS SUMMARY | 2025-03-22 08:12 | XMS_ITS | Encounter Summary ---
Author Organization [facility] Address [address] [facility] [address] [place] [address] Phone Care Team Providers Care Boiler Fireman Name Role Phone Partha Burnett MD Primary Care Provider [phone] Alycia Rolle MD Unavailable [phone] Partha Burnett MD Unavailable [phone] Encounter Details Date Type Department Care Team (Late st Contact Info) Description 02/07/2022 Procedure Pass [facility], [address] [address] Social History Tobacco Use Types Packs/Day Years Used Date Smoking Tobacco: Former Cigarettes Q uit: 1980 Smokeless Tobacco: Never Alcohol Use Standard Drinks/Week Comments Not Currently 22 (1 standard drink = 0.6 oz pu re alcohol) Child or Family Care Answer Date Record ed Do you have problems with on e of the following making it difficult for you to work, study, or receive health care? No 07/11/2021 Education Answer Date Recorded Are you interested in help w ith more adult education (for example, completing high school, GED, job training, learning the [place] language, technical skills, or developing parenting skills)? No 07/11/2021 Food Answer Date Recorded Within the past [...] basis, and looking for work? 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 Not on file documented as of this encounter Plan of Treatment Upcoming Encounters Date Type Department Care Team (Late st Contact Info) Description 11/17/2024 Procedure Pass [address] [address] 07/04/2025 12:30 PM EDT Appointment [address] [address] Sofie Velazquez MD [address] [address] [email or web address] documented as of this encounter Visit Diagnoses Not on filedocumented in this encounter Additional Health Concerns Infection Onset Date Last Indicated Resolved Time COVID-19 12/29/2022 12/29/2022 01/19/2023 1:32 AM EDT Assessment Noted Time PHQ-2 Depression Total Score: 0 02/28/20 12:56 PM EST documented as of this encounter Care Teams Boiler Fireman Relationship Specialty Start Date End Date Partha Burnett MD [address] [place] [address], [address] [place] [address] [email or web address] PCP - General Internal Medicine 07/11/21 Alycia Rolle MD [address] [place] [address], [address] [place] [address] [email or web address] Obstetrics and Gynecology 07/11/21 Partha Burnett MD [address] [place] [address], [address] [place] [address] [email or web address] Insurance Assigned Provider 07/05/23 documented as of this encounter Additional Source Comments The information contained in this document represents components of the legal health record. It is not the complete legal health record.[facility]
--- OUTSIDE RECORDS SUMMARY | 2025-03-22 08:12 | XMS_ITS | Encounter Summary ---
Author Organization [facility] Address [address] [place] [address] Phone Care Team Providers Care Medical Technologist Chemistry Name Role Phone Torsten Weller MD Primary Care Provider Moira Griffin MD Primary Care Provider Partha Burnett MD Primary Care Provider [phone] Alycia Rolle MD Unavailable [phone] Partha Burnett MD Unavailable [phone] Reason for Referral * MRI/CAT Scan - Closed Specialty Diagnoses / Procedures Referred By Duyen hyde Referred To Contact Radiology Diagnoses Right shoulder pain, unspecified chronicity Procedures MRI Shoulder (Right) Beck Brown MD Phone: tel: fax: [email or web address] Referral ID Status Reason Start Date Expiration Date Visits Re quested Visits Authorized [id number] Closed 10/23/2017 10/23/2018 1 1 Encounter Details Date Type Department Care Team (Late st Contact Info) Description 10/23/2017 Ancillary Orders Virtual Department [address] [place] [address] Beck Brown MD [address] [place] [id number] Right shoulder pain, unspecified chronicity Social History Tobacco Use Types Packs/Day Years [...] st Contact Info) Description 11/17/2024 Procedure Pass [address] [address] 07/04/2025 12:30 PM EDT Appointment [address] [address] Sofie Velazquez MD [address] [place] [address], [address] [place] [address] documented as of this encounter Results * MRI SHOULDER WITHOUT CONTRAST (RIGHT) (10/30/2017 6:17 PM EDT) Anatomical Region Laterality Modality Shoulder Right Magnetic Resonan ce 10/30/2017 6:47 PM EDT Impressions 10/30/2017 7:23 PM EDT Large full-thickness rotator cuff tear involving predominantly supraspinatus and upper subscapularis fibers. Mild subluxation of tendon long head of the biceps without dislocation. Large associated joint and bursal effusions. POS - [id number] Edited by: Rosalina Carlos on 10/30/2017 7:10 PM Narrative 10/30/2017 7:23 PM EDT HISTORY: Pain. Rotator cuff tear. COMPARISON: None. TECHNIQUE: Exam performed on a 1.5 Anusha high-field MRI scanner. Axial T1 and proton density with fat suppression, oblique coronal proton density with fat suppression and T2 with fat suppression, oblique sagittal T1 and T2 with fat suppression sequences were obtained. FINDINGS: There is a full-thickness, large rotator cuff tear with retraction of a significant portion of the supraspinatus. There is some tenuously intact supraspinatus fibers. There appears to be some involvement in portions of the particularly upper subscapularis. Tendon long head of biceps appears mildly subluxated along the anterior margin of the lesser tubercle. There is some tendinopathy suggested along the tendon long head of the biceps through its distal course. Infraspinatus and teres minor appear intact. No labral tear. Mild acromioclavicular degenerative change. Mild impingement change at the humeral head. No adenopathy or worrisome marrow signal change. No soft tissue mass is seen. There is a large joint effusion, freely communicating with the bursa. Procedure Note Puneet Baez MD - 10/30/2017 HISTORY: Pain. Rotator cuff tear. COMPARISON: None. TECHNIQUE: Exam performed on a 1.5 Anusha high-field MRI scanner. Axial T1and proton density with fat suppression, oblique coronal proton densitywith fat suppression and T2 with fat suppression, oblique sagittal T1 andT2 with fat suppression sequences were obtained. FINDINGS: There is a full-thickness, large rotator cuff tear with retraction of asignificant portion of the supraspinatus. There is some tenuously intactsupraspinatus fibers. There appears to be some involvement in portions ofthe particularly upper subscapularis. Tendon long head of biceps appearsmildly subluxated along the anterior margin of the lesser tubercle. Thereis some tendinopathy suggested along the tendon long head of the bicepsthrough its distal course. Infraspinatus and teres minor appear intact. Nolabral tear. Mild acromioclavicular degenerative change. Mild impingementchange at the humeral head. No adenopathy or worrisome marrow signalchange. No soft tissue mass is seen. There is a large joint effusion,freely communicating with the bursa. IMPRESSION: Large full-thickness rotator cuff tear involving predominantlysupraspinatus and upper subscapularis fibers. Mild subluxation of tendonlong head of the biceps without dislocation. Large associated joint andbursal effusions. POS - [id number] Edited by: Rosalina Carlos on 10/30/2017 7:10 PM us Beck Brown MD IMG MR EXTREMITY Final Resul t documented in this encounter Visit Diagnoses Diagnosis Right shoulder pain, unspecified chronicity Right shoulder pain, unspecified chronicity documented in this encounter Additional Health Concerns Infection Onset Date Last Indicated Resolved Time CoV-Risk 07/23/2020 07/23/2020 2020 1:23 AM EDT COVID-19 12/29/2022 12/29/2022 01/19/2023 1:32 AM EDT documented as of this encounter Care Teams Medical Technologist Chemistry Relationship Specialty Start Date End Date Torsten Weller MD [email or web address] PCP - General Family Medicine 04/21/17 03/05/21 Moira Griffin MD [email or web address] PCP - General Internal Medicine 03/06/21 07/10/21 Partha Burnett MD [address] [place] [address], [address] [place] [address] [email or web address] PCP - General Internal Medicine 07/11/21 Alycia Rolle MD [address] [place] [address], [address] [place] [address] [email or web address] Obstetrics and Gynecology 07/11/21 Partha Burnett MD [address] [place] [address], [address] [place] [address] [email or web address] Insurance Assigned Provider 07/05/23 documented as of this encounter Additional Source Comments The information contained in this document represents components of the legal health record. It is not the complete legal health record.[facility]
--- OUTSIDE RECORDS SUMMARY | 2025-03-22 08:12 | XMS_ITS | Clinical Summary ---
Author Organization [facility] Address [address] [place] [id number] Phone Care Team Providers Care Laundry Operator Wash Room Name Role Phone Partha Burnett MD Primary Care Provider [phone] Alycia Rolle MD Unavailable [phone] Partha Burnett MD Unavailable [phone] Allergies Active Allergy Reactions Criticality Noted Date Comments Penicillins Hives,Other (See Comments) 05/09/19 21 Medications cholecalciferol (VITAMIN D3) 25 MCG (1,000 unit) tablet Take 1,000 Units by mouth daily. Active losartan (COZAAR) 50 MG tabletIndications :Essential hypertension TAKE 1 TABLET(50 MG) BY MOUTH DAILY 90 tablet 3 024 Active ALPRAZolam (XANAX) 0.5 MG tablet Take 1 tablet (0.5 mg total) by mouth nightly at bedtime as needed. 10 tablet 025 Active levothyroxine (SYNTHROID, LEVOTHROID) 88 MCG tabletIndications :Acquired hypothyroidism TAKE 1 TABLET(88 MCG) BY MOUTH EVERY MORNING 90 tablet 3 025 Active atenolol (TENORMIN) 25 MG tabletIndications :Palpitations TAKE 1 TABLET(25 MG) BY MOUTH DAILY 90 tablet 3 025 Active clobetasol (TEMOVATE) 0.05 % cream 025 Active ciclopirox (CICLODAN) 0.77 % cream 1 application to affected area Externally Twice a day to effected areas on feet; Duration: 30 days Active uclzkwcs-ijrsee-d scorbic acid (COLLAGEN 1500 PLUS C) 500 mg-800 mcg- 50 mg Cap Take by mouth. Activ e erythromycin (ROMYCIN) ophthalmic ointment Place 0.5 inches into each eye nightly at bedtime. 3.5 g 025 Active acyclovir (ZOVIRAX) 400 MG tabletIndications :Recurrent herpes simplex Take 1 tablet (400 mg total) by mouth 2 (two) times a day. 180 tablet 3 025 Active FLUoxetine (PROZAC) 20 MG capsule TAKE 1 CAPSULE(20 MG) BY MOUTH DAILY 90 capsule 3 025 Active FLUoxetine (PROZAC) 20 MG capsule TAKE 1 CAPSULE(20 MG) BY MOUTH DAILY 90 capsule 3 025 2024 Discontinued Active Problems Problem Noted Date Diagnosed Date Recurrent herpes simplex 07/08/2024 History of lump of right breast 06/09/2024 Overview (06/09/2024): Since surgery in 1995- has had bx a few times Assessment & Plan (06/09/2024 5:06 PM EDT): Feels more prominent to her; recommend consult breast surgeon, and discuss if breast MRI still indicated Other constipation 05/11/2024 Sensory neuropathy 02/10/2024 Assessment & Plan (02/10/2024 8:12 PM EST): Symptoms are likely due to mild sensory neuropathy. She is going to check labs in a few weeks on losartan will also check a vitamin B12 level. If there is no abnormality, send symptoms are so mild I would not pursue any further evaluation. Class 1 obesity due to exces s calories without serious comorbidity with body mass index (BMI) of 31.0 to 31.9 in adult 02/10/2024 Assessment & Plan (05/11/2024 11:40 AM EST): Courage to work on gradually losing weight. Dietary counseling was given Shortness of breath 10/16/2023 Assessment & Plan (10/16/2023 1:10 PM EDT): Pt reporting intermittent shortness of breath. Worse on exertion. No evidence of fluid overload on exam. Lung martell clear on auscultation. Encouraged continued consistent exercise, work on weight loss, call with worsening shortness of breath. Gastroesophageal reflux disease 10/16/2023 Assessment & Plan (10/16/2023 1:05 PM EDT): Continue PPI. Pulmonary nodule less than 6 mm determined by computed tomography of lung 10/16/2023 Overview (02/10/2024): Multiple 3 mm nodules seen in the right upper lobe on CT at [facility] in 2023. Likely related to previous radiation for breast cancer. Assessment & Plan (05/11/2024 11:40 AM EST): Reviewed CT, findings are benign. No further testing is needed. Assessment & Plan (02/10/2024 8:09 PM EST): Findings are benign appearing, likely scarring from previous radiation. Unless symptoms worsen, no further evaluation recommended. Assessment & Plan (10/16/2023 1:06 PM EDT): Given history and after review of current guidelines there is no indication for further workup of these incidental findings at this time. Will discuss with patient. If patient has concerns we could consider 12 month follow up imaging to reassess and monitor for change. Hepatic steatosis 10/16/2023 Assessment & Plan (10/16/2023 1:13 PM EDT): Incidental finding on recent imaging. Advised balanced diet and regular exercise. She is interested in meeting with a insurance healthcare consultant and I have given her a list of transcript evaluator in the area. 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 I described for her clinically what gout flare versus arthritis flare may look like. If she has similar mild symptoms in the future, recommend taking a dose of meloxicam as opposed to colchicine Assessment & Plan (06/13/2023 8:50 AM EDT): Clinically doing well with infrequent flares. Unless uric acid level is much higher, continue just to treat symptomatically. Assessment & Plan (10/23/2022 12:05 PM EDT): She has had infrequent flares. Continue using colchicine as needed. Assessment & Plan (04/09/2022 8:45 AM EST): Since her gout flares are infrequent, I recommend dietary management by avoiding shellfish and limiting alcohol intake. She can use Celebrex and or colchicine on an as-needed basis. If her flares become more frequent she may need suppressive therapy, but at this point no other interventions needed Carpal tunnel syndrome of left wrist 04/09/2022 Assessment & Plan (04/09/2022 8:47 AM EST): Planning decompression surgery next week which seems prudent considering her symptoms. Since the pain in her thumb has not changed in many years, I also agree with her that deferring surgical intervention at this point makes the most sense. History of colonic polyps 02/27/2022 Assessment & Plan (02/27/2022 1:47 PM EST): Screening is up-to-date, repeat colonoscopy in 4 years Palpitations 11/30/2021 Overview (11/30/2021): Started atenolol by previous PCP Assessment & Plan (11/30/2021 2:06 PM EDT): Well-controlled, continue current medication Lumbar degenerative disc disease 07/11/2021 Assessment & Plan (11/30/2021 2:07 PM EDT): Hip pain is most likely related to lumbar degenerative disc disease. Refer to physical therapy. Assessment & Plan (07/11/2021 12:43 PM EDT): Symptoms are consistent with lumbar degenerative disc disease. I gave her an exercise handout. If this is not helpful I can refer her to physical therapy. Acquired hypothyroidism 07/11/2021 Assessment & Plan (05/11/2024 11:41 AM EST): Other than constipation, she is asymptomatic. Recheck TSH and adjust levothyroxine if needed Assessment & Plan (02/10/2024 8:09 PM EST): Clinically and chemically euthyroid, continue current treatment. Assessment & Plan (06/13/2023 8:50 AM EDT): Clinically euthyroid, check TSH and adjust levothyroxine if needed Assessment & Plan (04/09/2022 8:45 AM EST): Well-controlled, continue current medication Assessment & Plan (02/27/2022 1:47 PM EST): TSH is in the normal range and she is asymptomatic, continue current medication Assessment & Plan (11/30/2021 2:07 PM EDT): Tremor is likely due to over replacement of levothyroxine. She is been on the lower dose for the past couple of weeks. I expect the tremor should gradually improve. Recheck TSH in 2 months. Assessment & Plan (07/11/2021 12:42 PM EDT): I suspect she does not need both levothyroxine and liothyronine. I asked her to discontinue the liothyronine and we will start her on a slightly higher dose of levothyroxine. I will check her TSH in a couple of months. Mixed hyperlipidemia 07/11/2021 Assessment & Plan (06/13/2023 8:50 AM EDT): Doing well with dietary management, continue the same Assessment & Plan (10/23/2022 12:04 PM EDT): No signs or symptoms of cardiovascular disease, continue dietary management. We will recheck lipid panel. Assessment & Plan (11/30/2021 2:07 PM EDT): Much better with improved diet. Recheck lipids at next appointment in about 6 months Assessment & Plan (07/11/2021 12:43 PM EDT): It is not clear if she needs to be on any lipid-lowering medication. She should continue with a low-fat diet and work on losing some weight. I had like her to stop ezetimibe and recheck a lipid panel. If she does need treatment, statin would be a better choice. Is not clear why statin was stopped in the past, but since there does not appear to be any contraindication, if necessary I will start a statin. Recurrent major depressive disorder, in full rem ission 07/11/2021 Overview (07/11/2021): Symptoms started at menopause, responded well to fluoxetine. Relapsed when attempting to stop fluoxetine Assessment & Plan (05/11/2024 11:41 AM EST): Well-controlled, continue current medication Assessment & Plan (02/10/2024 8:09 PM EST): Well-controlled, continue current medication. Assessment & Plan (06/13/2023 8:51 AM EDT): Well-controlled, continue current medication. Assessment & Plan (10/23/2022 12:04 PM EDT): Doing well, continue current medication. Assessment & Plan (04/09/2022 8:46 AM EST): Well-controlled, continue current medication Assessment & Plan (02/27/2022 1:47 PM EST): Well-controlled, continue current medication. Assessment & Plan (11/30/2021 2:08 PM EDT): Well-controlled, continue current medication. Assessment & Plan (07/11/2021 12:44 PM EDT): She is doing very well with current treatment. She has had multiple relapses off medication. I recommend she continue fluoxetine indefinitely. History of breast cancer 07/11/2021 Overview (07/11/2021): Cancer of the left breast diagnosed at age 43. Treated with radiation and lumpectomy. Assessment & Plan (05/11/2024 11:40 AM EST): Asymptomatic, continue annual screening Assessment & Plan (07/11/2021 12:42 PM EDT): Clinically she is doing well with no evidence of recurrence or new malignancy. Continue annual mammography. Essential hypertension 07/11/2021 Assessment & Plan (05/11/2024 11:40 AM EST): Blood pressure is well-controlled, continue current medication Assessment & Plan (02/10/2024 8:11 PM EST): She may have developed an allergy to lisinopril. Will change to losartan. She should monitor her blood pressure at home 2 or 3 times per week and send me a list of her blood pressure readings in about a month. Goal is to maintain an average blood pressure less than 130/80. If she is not at goal I will increase the losartan dose. Assessment & Plan (06/13/2023 8:50 AM EDT): Blood pressure is well-controlled, continue current medication Assessment & Plan (10/23/2022 12:04 PM EDT): Well-controlled, continue current medication. Assessment & Plan (04/09/2022 8:45 AM EST): Blood pressures well controlled, continue low-sodium diet Assessment & Plan (02/27/2022 1:46 PM EST): Blood pressures well controlled, continue current medication Assessment & Plan (11/30/2021 2:06 PM EDT): Well-controlled, continue current medication Assessment & Plan (07/11/2021 12:45 PM EDT): Blood pressures well controlled, continue current medication. Family history of ovarian cancer 02/20/2021 Overview (06/09/2024): Sister with ovarian cancer Lilly had prophylactic oophorectomy Negative genetic eval Generally CA 125 not done after the BSO Assessment & Plan (10/23/2022 12:05 PM EDT): We discussed management. No indication for any further testing. Assessment & Plan (02/23/2021 10:10 PM EST): No additional screening/surveillance recommended. Resolved Problems Problem Noted Date Diagnosed Date Resolved Date Subacute cough 02/10/2024 05/11/2024 Assessment & Plan (02/10/2024 8:10 PM EST): Possibly related to allergy to lisinopril. Will try her on an ARB. If the cough is related to KRYSTLE inhibitor, to resolve over the course of the next few weeks. 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 Question possible GERD component vs ulcer. Advised she continue on PPI daily. Will place referral to GI for further evaluation and management as needed. Pt is advised of and aware of red flag symptoms that should prompt reevaluation but recent workup in ED reassuring overall. Hamstring strain, right, initial encounter 07/02/2023 02/10/2024 Assessment & Plan (07/02/2023 4:33 PM EDT): Home exercise handout reviewed and given. If not gradually improving I can refer to physical therapy. Encounters Date Type Department Care Team Description 03/19/2025 Refill [facility] [address] [place] [address] Partha Burnett MD Medication Refill 03/18/2025 Orders Only [facility] [address] [place] [address] ProviderMarcelo MD 02/06/2025 Refill [facility] [address] [place] [address] Partha Burnett MD Medication Refill from Last 3 Months Immunizations Immunization Administration Dates Next Due COVID-19 (Pre-01/20) Pfizer Vaccine, mRNA, PF 01/26/2021,06/23/2020,06/02/2020 INFLUENZA, SPLIT VIRUS, TRIVALENT PF 02/02/2021, 12/13/2019 Influenza High-Dose Quadriva lent Preservative Free IM 12/06/2022,12/17/2021 Influenza High-Dose Trivalen t Preservative Free IM 01/25/2019,12/03/2017 Influenza Trivalent Adjuvant ed Preservative free IM 03/25/2024,02/06/2017 Pneumococcal conjugate PCV13 12/03/2017,10/08/19 18 Pneumococcal conjugate PCV20 10/23/2022 RSV Vaccine (bivalent) 12/09/2022 Td (adult),2 Lf Tetanus Toxo id, PF, Adsorbed 05/05/2019 Zoster recombinant 04/12/2020,02/10/2020 Family History Medical History Relation Comments Prostate cancer Father Breast cancer Maternal Grandmother from b r. ca. Aneurysm Mother Breast cancer Paternal Cousin Ovarian cancer Paternal Cousin Ovarian cancer Sister at 53 from ov. 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 Not on file Not on file Last Filed Vital Signs Vital Sign Reading Time Taken Comments Blood Pressure 132/84 12/15/2024 8:20 AM EDT Pulse 56 12/15/2024 8:20 AM EDT Temperature 36.4 C (97.5 F) 12/15/2024 8:20 AM EDT Respiratory Rate 18 12/15/2024 8:20 AM EDT Oxygen Saturation 98% 12/15/2024 8:20 AM EDT Inhaled Oxygen Concentration - - Weight 78.5 kg (173 lb) 12/12/2024 10:06 AM EDT Height 168.9 cm (5' 6.5 ) 12/12/2024 10:06 AM ED T Body Mass Index 27.5 12/12/2024 10:06 AM EDT Plan of Treatment Upcoming Encounters Date Type Department Care Team (Late st Contact Info) Description 11/17/2024 Procedure Pass [address] [address] 07/04/2025 12:30 PM EDT Appointment [address] [address] Sofie Velazquez MD [address] [place] [address], [address] [place] [address] [email or web address] Health Maintenance Due Date Last Done Comments COLOGUARD 08/01/1996 FIT TEST 08/01/1996 FOBT 08/01/1996 SIGMOIDOSCOPY 08/01/1996 VIRTUAL COLONOSCOPY 08/01/1996 INFLUENZA VACCINE (#1) 2024 , 12/06/2022, 12/17/2021, Additional history exists COVID-19 VACCINE ( season) 2024 03/25/2024, 05/27/2023, 07/31/2022, Additional history exists COLONOSCOPY 05/11/2025 05/11/2020 COLORECTAL CANCER SCREENING 05/11/2025 CREATININE LEVEL 05/11/2025 05/11/2024, , 06/13/2023, Additional history exists DEPRESSION SCREENING 05/11/2025 05/11/2024 POTASSIUM LEVEL 05/11/2025 05/11/2024, 02/28, 06/13/2023, Additional history exists BLOOD PRESSURE 06/14/2025 12/15/2024 TSH LEVEL 07/01/2025 07/01/2024, 05/01, 01/22/2024, Additional history exists SMOKING Hx and SMOKELESS TOBACCO SCREENING 12/15/2025 12/15/2024 MAMMOGRAM 10/29/2026 10/29/2024, 05/01, 03/06/2021, Additional history exists LIPID PANEL 11/13/2027 11/12/2022, 05/30, 05/09/2021, Additional history exists Adult Td,Tdap Booster 05/05/2029 05/05/2019 OSTEOPOROSIS SCREENING INITIAL (ONE-TIME) 03/28/2034 Postponed from 08/01/2016 (Not Clinically Appropriate) ZOSTER VACCINES Completed 04/12/2020, 02/10/2020 PNEUMOCOCCAL VACCINES (50+ years) Completed 10/23/2022, 12/03/2017, 10/07/2017 HEPATITIS C SCREENING Completed 11/12/2022 RSV VACCINE Completed 12/09/2022 HEPATITIS A VACCINES Aged Out No long er eligible based on patient's age to complete this topic HIB VACCINES Aged Out No longer eligi ble based on patient's age to complete this topic MENINGOCOCCAL VACCINES (ACWY) Aged Out No longer eligible based on patient's age to complete this topic MENINGOCOCCAL VACCINES (B) Aged Out N o longer eligible based on patient's age to complete this topic Medical Devices Implanted Type Area Journeyman Level Acoustic Analyst Device Identifier Shelf Expiration Date Model / Serial / Lot Lens Lens Bilateral: Eye Procedures Procedure Name Priority Date/Time Associated Diagnosis Comments OUTSIDE IMAGING Routine 03/17/2025 2:27 PM EST BI MRI BREAST WITH AND WITHOUT CONTRAST (BILATERAL) Routine 10/29/2024 12:01 PM EDT Breast cancer screening, high risk patient TSH WITH REFLEX Routine 07/01/2024 10:32 AM EDT Acquired hypothyroidism BASIC METABOLIC PANEL (BMP) Routine 05/11/2024 10:25 AM EST Essential hypertension LIPID PANEL Routine 11/12/2022 8:10 AM EDT Mixed hyperlipidemia HEPATITIS C ANTIBODY, QUALITATIVE Routine 11/12/2022 8:10 AM EDT Need for hepatitis C screening test ENDOSCOPY, COLON 05/11/2020 1:48 PM EST from Last 3 Months or Most Recently Relevant to Health Maintenance Results * Outside Imaging Report Only (03/17/2025 2:27 PM EST) us Historical Provider MD HORN XR CHEST Edited Re sult - Final * BI MRI BREAST WITH AND WITHOUT CONTRAST (BILATERAL) (10/29/2024 12:01 PM EDT) Anatomical Region Laterality Modality Breast Left, Breast Right, Breast Bilateral Bila teral Magnetic Resonance 11/01/2024 11:4 8 AM EDT Impressions 11/01/2024 11:58 AM EDT No MRI evidence of malignancy in either breast. Post lumpectomy changes in the right breast, no evidence of recurrence. BI-RADS 2 BENIGN Please note that mammography offers complementary information to MRI and certain findings may be visible primarily on mammography. The patient should keep all scheduled mammography appointments and continue annual screening mammography. Narrative 11/01/2024 11:58 AM EDT BI MRI BREAST WITH AND WITHOUT CONTRAST (BILATERAL) Additional patient information: Personal history of right breast cancer, status post lumpectomy in 1994. High risk screening. TECHNIQUE: MR imaging of the breasts was performed using T1, T2 and fat- saturated techniques. Dynamic multiphase imaging was also performed after the uneventful administration of 16.5 mL intravenous gadolinium contrast agent. Computer generated 3D reconstruction and enhancement kinetic analysis was utilized by the radiologist in the interpretation of this examination. COMPARISON: Comparison is made with relevant prior imaging. Breast composition: Scattered fibroglandular tissue. Background parenchymal enhancement: Minimal. FINDINGS: Right There are postlumpectomy changes in the superior right breast. Additionally, there is marked asymmetry in size of the breast with the right breast being significantly smaller, this is demonstrated on previous mammograms and is considered chronic in nature. There are no suspicious masses or areas of abnormal non-mass enhancement in the right breast. There is no axillary or internal mammary lymphadenopathy on the right. Left There are no suspicious masses or areas of abnormal non-mass enhancement in the left breast. There is no axillary or internal mammary lymphadenopathy on the left. Other No incidental or abnormal findings. Procedure Note Jennifer Caceres MD - 11/01/2024 BI MRI BREAST WITH AND WITHOUT CONTRAST (BILATERAL) Additional patient information: Personal history of right breast cancer,status post lumpectomy in 1994. High risk screening. TECHNIQUE: MR imaging of the breasts was performed using T1, T2 andfat-saturated techniques. Dynamic multiphase imaging was also performedafter the uneventful administration of 16.5 mL intravenous gadoliniumcontrast agent. Computer generated 3D reconstruction and enhancementkinetic analysis was utilized by the radiologist in the interpretation ofthis examination. COMPARISON: Comparison is made with relevant prior imaging. Breast composition: Scattered fibroglandular tissue. Background parenchymal enhancement: Minimal. FINDINGS: Right There are postlumpectomy changes in the superior right breast.Additionally, there is marked asymmetry in size of the breast with theright breast being significantly smaller, this is demonstrated on previousmammograms and is considered chronic in nature. There are no suspiciousmasses or areas of abnormal non-mass enhancement in the right breast. There is no axillary or internal mammary lymphadenopathy on the right. Left There are no suspicious masses or areas of abnormal non-mass enhancementin the left breast. There is no axillary or internal mammary lymphadenopathy on the left. Other No incidental or abnormal findings. IMPRESSION: No MRI evidence of malignancy in either breast. Post lumpectomy changes inthe right breast, no evidence of recurrence. BI-RADS 2 BENIGN Please note that mammography offers complementary information to MRI andcertain findings may be visible primarily on mammography. The patientshould keep all scheduled mammography appointments and continue annualscreening mammography. us Sofie Velazquez MD IMG MR BREAST Final Resu lt * TSH with reflex (07/01/2024 10:32 AM EDT) TSH 0.76 0.27 - 4.20 uIU/mL [facility] Blood 07/01/2024 10:3 2 AM EDT 07/01/2024 10:37 AM EDT Partha Burnett MD LAB BLOOD BKR ORDERABLES F inal Result Performing Organization Address [facility] de Phone Number [address] [address] * (ABNORMAL) Basic metabolic panel (05/11/2024 10:25 AM EST) SODIUM 139 133 - 146 mmol/L [facility] CHLORIDE 103 96 - 108 mmol/L [facility] POTASSIUM 4.9 3.3 - 5.1 mmol/L [facility] CO2 27 21 - 35 mmol/L [facility] BUN 17 6 - 19 mg/dL [facility] CREATININE 1.00 0.5 - 1.5 mg/dL [facility] GLUCOSE 105(H) 70 - 99 mg/dL [facility] CALCIUM 9.4 8.4 - 10.3 mg/dL [facility] EGFR 60 >59 mL/min/1.7 3m2 [facility] Comment:Estimated glomerular filtration rate calculated using the CKD-EPI refit equation. ANION GAP 14 10 - 20 mmol/L [facility] Blood 05/11/2024 10:2 5 AM EST 05/11/2024 10:30 AM EST Partha Burnett MD LAB BLOOD BKR ORDERABLES F inal Result Performing Organization Address [facility] Co de Phone Number [address] [phone] * Hepatitis C antibody, qualitative (11/12/2022 8:10 AM EDT) HCV NON-REACTIV E NON-REACTI VE [facility] Blood 11/12/2022 8:10 AM EDT 11/12/2022 8:12 AM EDT Partha Burnett MD LAB BLOOD BKR ORDERABLES F inal Result Performing Organization Address [facility] Co de Phone Number [address] [address] * (ABNORMAL) Lipid panel (11/12/2022 8:10 AM EDT) HDL 37 mg/dL [facility] Comment: Interpretation <40 mg/dL: Low HDL cholesterol (major risk factor for CHD) Greater than or equal to 60 mg/dL: High HDL cholesterol ( negative risk factor for CHD) HDL - cholesterol is affected by a number of factors, e.g. smoking, excerise, hormones, sex and age. CHOLESTEROL 191 0 - 240 mg/dL [facility] TRIGLYCERIDES 194(H) 30 - 160 mg/dL [facility] LDL 115 50 - 129 mg/dL [facility] Comment: LDL levels in terms of risk for coronary heart disease: <100 mg/dL: Optimal 100-129 mg/dL: Near or above optimal 130-159 mg/dL: Borderline high 160-189 mg/dL: High >190 mg/dL: Very High CARDIAC RISK RATIO 5.2(H) 3.3 - 4.4 [facility] Blood 11/12/2022 8:10 AM EDT 11/12/2022 8:12 AM EDT us Partha Burnett MD LAB BLOOD BKR ORDERABLES F inal Result Performing Organization Address [facility] Co de Phone Number [address] [phone] * ENDOSCOPY, COLON (05/11/2020 1:48 PM EST) Narrative Transcriptions Shorty Greer MD - 05/11/2020 1:48 PM EST Patient Name: Lilly Dhaliwal Attending MD:: SHORTY GREER MD Procedure Date: 05/11/2020 1:48 PM Date of : 1950 Age: 69 Admit Type: Outpatient Gender: Female Room: [place] [address] Referring MD: DIPIKA STEVENS MD Exam Type: Colonoscopy Indications: High risk colon cancer surveillance: Personalhistory of colonic polyps, Last colonoscopy: March 2017 Medications: Propofol per Anesthesia Procedure: Informed consent was obtained from the patient after discussion of the indications, limitations, alternatives, benefits, and risks of the procedure. Risks specifically discussed include but are not limited to medication reactions, missed lesions, bleeding, perforation, or the need for emergentsurgery. Throughout the procedure, the patient's bloodpressure, pulse, end-tidal CO2, and oxygen saturations were monitored continuously. The Olympus adult variable colonoscope CF-CF028L #5was introduced through the anus and advanced to thececum, identified by appendiceal orifice and ileocecalvalve. The appendiceal orifice and the rectum were photographed. The colonoscopy was performed without difficulty. The patient tolerated the procedurewell. The quality of the bowel preparation was good. The bowel preparation used was Miralax via split dose instruction. Complications: No immediate complications. Estimated blood loss:None. Findings: The perianal and digital rectal examinations were normal. Pertinent negatives include no palpablerectal lesions. The retroflexed view of the distal rectum and anal verge was normal and showed no anal or rectal abnormalities. A few small-mouthed diverticula were found in the sigmoid colon and ascending colon. The exam was otherwise without abnormality. Retroflexion in the right colon was performed. Impression: - The distal rectum and anal verge are normal on retroflexion view. - Diverticulosis in the sigmoid colon and in the ascending colon. - The examination was otherwise normal. - No specimens collected. Recommendation: - Repeat colonoscopy in 5 years for surveillance. SHORTY GREER MD 05/11/2020 2:16:28 PM This report has been signed electronically. Number of Addenda: 0 Note Initiated On: 05/11/2020 1:48 PM Procedure Code(s): --- Professional --- 08525, Colonoscopy, flexible; diagnostic, including collection of specimen(s) by brushing or washing, when performed (separateprocedure) --- Technical --- 20028, Colonoscopy, flexible; diagnostic, including collection of specimen(s) by brushing or washing, when performed (separateprocedure) Diagnosis Code(s): --- Professional --- Z86.010, Personal history of colonic polyps K57.30, Diverticulosis of large intestine without perforation or abscess without bleeding --- Technical --- Z86.010, Personal history of colonic polyps K57.30, Diverticulosis of large intestine without perforation or abscess without bleeding CPT copyright 2018 [employer]. All rights reserved. The codes documented in this report are preliminary and upon icd 9 coder reviewmay be revised to meet current compliance requirements. Procedure Date: 05/11/2020 1:48:[address] [place] [address] Dipika Stevens MD GI PROCEDURE ORDERABLES Fin al Result from Last 3 Months or Most Recently Relevant to Health Maintenance Insurance MEDICARE PART A & B [facility] MEDICARE PART A & B [facility] MEDICARE PART A & B [facility] MEDICARE [facility] A & B [facility] MEDICARE PART A & B [id number] [place] [address] MEDICARE PART A & B [facility] MEDICARE PART A & B [facility] MEDICARE PART A & B [facility] MEDICARE PART A & B [facility] Care Teams Laundry Operator Wash Room Relationship Specialty Start Date End Date Partha Burnett MD [address] [place] [address], [address] [place] [address] PCP - General Internal Medicine 07/11/21 Alycia Rolle MD [address] [place] [address], [address] [place] [address] [email or web address] Obstetrics and Gynecology 07/11/21 Partha Burnett MD [address] [place] [address], [address] [place] [address] Insurance Assigned Provider 07/05/23 Additional Source Comments The information contained in this document represents components of the legal health record. It is not the complete legal health record.[facility]
--- OUTSIDE RECORDS SUMMARY | 2025-03-22 08:12 | XMS_ITS | Encounter Summary ---
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 Not on file Not on file documented as of this encounter Plan of Treatment Upcoming Encounters Date Type Department Care Team (Late st Contact Info) Description 11/17/2024 Procedure Pass [address] [address] 07/04/2025 12:30 PM EDT Appointment [address] [address] Sofie Velazquez MD [address] [facility], 2nd [place] [address] [email or web address] documented as of this encounter Visit Diagnoses Not on filedocumented in this encounter Additional Health Concerns Assessment Noted Time PHQ-2 Depression Total Score: 1 05/11/19 25 8:14 AM EST documented as of this encounter Care Teams Bagger Meat Relationship Specialty Start Date End Date Partha Burnett MD [address] [facility], [address] [place] [address] [email or web address] PCP - General Internal Medicine 07/11/21 Alycia Rolle MD [address] [facility], [address] [place] [address] [email or web address] Obstetrics and Gynecology 07/11/21 Partha Burnett MD [address] [facility], [address] [place] [address] [email or web address] Insurance Assigned Provider 07/05/23 documented as of this encounter Additional Source Comments The information contained in this document represents components of the legal health record. It is not the complete legal health record.[facility]
--- OUTSIDE RECORDS SUMMARY | 2025-03-22 08:12 | XMS_ITS | Encounter Summary ---
Author Organization [facility] Address [address] [place] [address] Phone Care Team Providers Care Nursing Techn Name Role Phone Torsten Weller MD Primary Care Provider [phone] Moira Griffin MD Primary Care Provider Partha Burnett MD Primary Care Provider [phone]- [phone] Alycia Rolle MD Unavailable [phone] Partha Burnett MD Unavailable [phone] Reason for Referral * Physical Therapy (Elective) - Closed Specialty Diagnoses / Procedures Referred By Duyen hyde Referred To Contact Physical Therapy Diagnoses Encounter for rehabilitation Right Hip Pain Procedures Evaluate & Treat Torsten Weller MD Phone: tel: fax: [email or web address] [address] [address] Phone: tel: Referral ID Status Reason Start Date Expiration Date Visits Re quested Visits Authorized [id number] Closed 11/27/2018 03/30/2019 15 15 Encounter Details Date Type Department Care Team (Late st Contact Info) Description 11/23/2018 Transcribe Orders [facility] [address] [place] [address] Torsten Weller MD [address] [place] [address] [email or web address] Encounter for rehabilitation (Primary Dx) Social History [...] st Contact Info) Description 11/17/2024 Procedure Pass [address] [address] 07/04/2025 12:30 PM EDT Appointment [address] [address] Sofie Velazquez MD 15 [facility], [address] [place] [address] [email or web address] documented as of this encounter Procedures Procedure Name Priority Date/Time Associated Diagnosis Comments AMB REFERRAL TO [facility] PHYSICAL THERAPY Routine 11/27/2018 11:21 PM EDT Encounter for rehabilitation documented in this encounter Results * Ambulatory referral to [facility] Physical Therapy (11/27/2018 11:21 PM EDT) Torsten Weller MD AMB [facility] REFERRALS Final Res ult documented in this encounter Visit Diagnoses Diagnosis Encounter for rehabilitation- Primary documented in this encounter Additional Health Concerns Infection Onset Date Last Indicated Resolved Time CoV-Risk 07/23/2020 07/23/2020 2020 1:23 AM EDT COVID-19 12/29/2022 12/29/2022 01/19/2023 1:32 AM EDT documented as of this encounter Care Teams Nursing Techn Relationship Specialty Start Date End Date Torsten Weller MD [email or web address] PCP - General Family Medicine 04/21/17 03/05/21 Moira Griffin MD [email or web address] PCP - General Internal Medicine 03/06/21 07/10/21 Partha Burnett MD [address] [place] [address], [address] [place] [address] [email or web address] PCP - General Internal Medicine 07/11/21 Alycia Rolle MD [address] [place] [address], [address] [place] [address] [email or web address] Obstetrics and Gynecology 07/11/21 Partha Burnett MD [address] [place] [address], [address] [place] [address] [email or web address] Insurance Assigned Provider 07/05/23 documented as of this encounter Additional Source Comments The information contained in this document represents components of the legal health record. It is not the complete legal health record.[facility]
--- OUTSIDE RECORDS SUMMARY | 2025-03-22 08:12 | XMS_ITS | Encounter Summary ---
Author Organization [facility] Address [address] [place] [address] Phone Care Team Providers Care Care Professional Name Role Phone Torsten Weller MD Primary Care Provider Moira Griffin MD Primary Care Provider Partha Burnett MD Primary Care Provider Alycia Rolle MD Unavailable [phone] Partha Burnett MD Unavailable [phone] Encounter Details Date Type Department Care Team (Late st Contact Info) Description 04/27/2018 Documentation [facility] [address] [place] [address] Anna Ramos, PT [address] [place], [place] [id number] [email or web address] Social History Tobacco Use Types Packs/Day Years [...] st Contact Info) Description 11/17/2024 Procedure Pass [facility], [address] [id number] 07/04/2025 12:30 PM EDT Appointment [facility] [address] [place] [address] Sofie Velazquez MD [address] [facility], 2nd [place] [address] [email or web address] documented as of this encounter Visit Diagnoses Not on filedocumented in this encounter Additional Health Concerns Infection Onset Date Last Indicated Resolved Time CoV-Risk 07/23/2020 07/23/2020 2020 1:23 AM EDT COVID-19 12/29/2022 12/29/2022 01/19/2023 1:32 AM EDT documented as of this encounter Care Teams Care Professional Relationship Specialty Start Date End Date Torsten Weller MD PCP - General Family Medicine 04/21/17 03/05/21 Moira Griffin MD [email or web address] PCP - General Internal Medicine 03/06/21 07/10/21 Partha Burnett MD [address] [facility], [address] [place] [address] PCP - General Internal Medicine 07/11/21 Alycia Rolle MD [address] [facility], [address] [place] [address] [email or web address] Obstetrics and Gynecology 07/11/21 Partha Burnett MD [address] [place] [address], [address] [place] [address] [email or web address] Insurance Assigned Provider 07/05/23 documented as of this encounter Additional Source Comments The information contained in this document represents components of the legal health record. It is not the complete legal health record.[facility]
--- OUTSIDE RECORDS SUMMARY | 2025-03-22 08:12 | XMS_ITS | Encounter Summary ---
Author Organization [facility] Address [address] [place] [address] Phone Care Team Providers Care Retail Office Manager Name Role Phone Torsten Weller MD Primary Care Provider Moira Griffin MD Primary Care Provider [phone] Partha Burnett MD Primary Care Provider [phone]- [phone] Alycia Rolle MD Unavailable [phone] Partha Burnett MD Unavailable [phone] Reason for Referral * Physical Therapy (Routine) - Closed Specialty Diagnoses / Procedures Referred By Duyen hyde Referred To Contact Physical Therapy Diagnoses Encounter for rehabilitation Right Hip Pain Procedures Right Hip Mild OA & Slight OLIVE- Maintain Hip ROM-Hip & Core Strengthening- Improve Gait & Balance- HEP- Evaluate & Treat Beck Brown MD Phone: tel: fax: [email or web address] [address] [address] Phone: tel: Referral ID Status Reason Start Date Expiration Date Visits Re quested Visits Authorized [id number] Closed 06/29/2019 03/30/2020 15 15 Encounter Details Date Type Department Care Team (Latest Contact Info) Description 05/31/2019 Transcribe Orders [facility] [address] [place] [address] Beck Brown MD [address] [place] [address] [email or web address] Encounter for rehabilitation (Primary Dx) Social History [...] st Contact Info) Description 11/17/2024 Procedure Pass [address] [address] 07/04/2025 12:30 PM EDT Appointment [address] [address] Sofie Velazquez MD [address] [place] [address], [address] [place] [address] [email or web address] Scheduled Referrals Name Type Priority Associated Diagnoses Orde r Schedule Ambulatory referral to [facility] Physical Therapy Outpatient Referral Routine Encounter for rehabilitation Ordered: 05/31/2019 documented as of this encounter Visit Diagnoses Diagnosis Encounter for rehabilitation- Primary documented in this encounter Additional Health Concerns Infection Onset Date Last Indicated Resolved Time CoV-Risk 07/23/2020 07/23/2020 2020 1:23 AM EDT COVID-19 12/29/2022 12/29/2022 01/19/2023 1:32 AM EDT documented as of this encounter Care Teams Retail Office Manager Relationship Specialty Start Date End Date Torsten Weller MD PCP - General Family Medicine 04/21/17 03/05/21 Moira Griffin MD [email or web address] PCP - General Internal Medicine 03/06/21 07/10/21 Partha Burnett MD [address] [place] [address], [address] [place] [address] PCP - General Internal Medicine 07/11/21 Alycia Rolle MD [address] [place] [address], [address] [place] [address] [email or web address] Obstetrics and Gynecology 07/11/21 Partha Burnett MD [address] [place] [address], [address] [place] [address] [email or web address] Insurance Assigned Provider 07/05/23 documented as of this encounter Additional Source Comments The information contained in this document represents components of the legal health record. It is not the complete legal health record.[facility]
--- OUTSIDE RECORDS SUMMARY | 2025-03-22 08:12 | XMS_ITS | Encounter Summary ---
Author Organization [facility] Address [address] [place] [address] Phone Care Team Providers Care Pie Bakery Laborer Name Role Phone Torsten Weller MD Primary Care Provider [phone] Moira Griffin MD Primary Care Provider Partha Burnett MD Primary Care Provider [phone]- [phone] Alycia Rolle MD Unavailable [phone] Partha Burnett MD Unavailable [phone] Reason for Referral * Physical Therapy (Elective) - Closed Specialty Diagnoses / Procedures Referred By Duyen hyde Referred To Contact Physical Therapy Diagnoses Encounter for rehabilitation Right Shoulder Procedures Evaluate & Treat Abran Velez MD Phone: tel: [address] [address] Phone: tel: Referral ID Status Reason Start Date Expiration Date Visits Re quested Visits Authorized [id number] Closed 01/12/2018 03/30/2018 18 18 Encounter Details Date Type Department Care Team (Latest Contact Info) Description 01/12/2018 Transcribe Orders [facility] [address] [place] [address] Abran Velez MD [address] [place] [address] Encounter for rehabilitation (Primary Dx) Social History [...] st Contact Info) Description 11/17/2024 Procedure Pass [address] [address] 07/04/2025 12:30 PM EDT Appointment [address] [address] Sofie Velazquez MD [address] [place] [address] [email or web address] documented as of this encounter Procedures Procedure Name Priority Date/Time Associated Diagnosis Comments AMB REFERRAL TO [facility] PHYSICAL THERAPY Routine 01/26/2018 11:07 PM EDT Encounter for rehabilitation documented in this encounter Results * Ambulatory referral to [facility] Physical Therapy (01/26/2018 11:07 PM EDT) Abran Velez MD AMB [facility] REFERRALS Final Result documented in this encounter Visit Diagnoses Diagnosis Encounter for rehabilitation- Primary documented in this encounter Additional Health Concerns Infection Onset Date Last Indicated Resolved Time CoV-Risk 07/23/2020 07/23/2020 2020 1:23 AM EDT COVID-19 12/29/2022 12/29/2022 01/19/2023 1:32 AM EDT documented as of this encounter Care Teams Pie Bakery Laborer Relationship Specialty Start Date End Date Torsten Weller MD PCP - General Family Medicine 04/21/17 03/05/21 Moira Griffin MD PCP - General Internal Medicine 03/06/21 07/10/21 Partha Burnett MD [address] [place] [address], [address] [place] [address] PCP - General Internal Medicine 07/11/21 Alycia Rolle MD [address] [place] [address], [address] [place] [address] Obstetrics and Gynecology 07/11/21 Partha Burnett MD [address] [place] [address], [address] [place] [address] [email or web address] Insurance Assigned Provider 07/05/23 documented as of this encounter Additional Source Comments The information contained in this document represents components of the legal health record. It is not the complete legal health record.[facility]
--- OUTSIDE RECORDS SUMMARY | 2025-03-22 08:12 | XMS_ITS | Encounter Summary ---
Author Organization [facility] Address [address] [place] [address] Phone Care Team Providers Care Nursing Home Administrator Name Role Phone Moira Griffin MD Primary Care Provider [phone] Partha Burnett MD Primary Care Provider [phone]- [phone] Alycia Rolle MD Unavailable [phone] Partha Burnett MD Unavailable [phone] Encounter Details Date Type Department Care Team (Late st Contact Info) Description 06/21/2021 Procedure Pass [address] [place] [address] Social History Tobacco Use Types Packs/Day Years [...] - Inhaled Oxygen Concentration - - Weight 82.1 kg (181 lb) 06/22/2021 2:10 PM EDT Height 167.6 cm (5' 6 ) 06/22/2021 2:10 PM EDT Body Mass Index 29.21 06/22/2021 2:10 PM EDT documented in this encounter Plan of Treatment Upcoming Encounters Date Type Department Care Team (Late st Contact Info) Description 11/17/2024 Procedure Pass [address] [address] 07/04/2025 12:30 PM EDT Appointment [address] [address] Sofie Velazquez MD [address] [facility], 2nd [place] [address] [email or web address] documented as of this encounter Visit Diagnoses Not on filedocumented in this encounter Additional Health Concerns Infection Onset Date Last Indicated Resolved Time COVID-19 12/29/2022 12/29/2022 01/19/2023 1:32 AM EDT documented as of this encounter Care Teams Nursing Home Administrator Relationship Specialty Start Date End Date Moira Griffin MD PCP - General Internal Medicine 03/06/21 07/10/21 Partha Burnett MD [address] [place] [address], [address] [place] [address] PCP - General Internal Medicine 07/11/21 Alycia Rolle MD [address] [place] [address], [address] [place] [address] Obstetrics and Gynecology 07/11/21 Partha Burnett MD [address] [place] [address], [address] [place] [address] Insurance Assigned Provider 07/05/23 documented as of this encounter Additional Source Comments The information contained in this document represents components of the legal health record. It is not the complete legal health record.[facility]
--- OUTSIDE RECORDS SUMMARY | 2025-03-22 08:12 | XMS_ITS | Encounter Summary ---
Author Organization [facility] Address [address] [place] [address] Phone Care Team Providers Care Home Administrator Name Role Phone Moira Griffin MD Primary Care Provider Partha Burnett MD Primary Care Provider + [phone] Alycia Rolle MD Unavailable [phone] Partha Burnett MD Unavailable [phone] Encounter Details Date Type Department Care Team (Late st Contact Info) Description 03/06/2021 Ancillary Orders [facility],[address] [address] System, Provider Not In, [place] [address] Social History Tobacco Use Types Packs/Day Years [...] st Contact Info) Description 11/17/2024 Procedure Pass [facility], [facility] [address] [place] [address] 07/04/2025 12:30 PM EDT Appointment [facility], Mammography- [facility] [address] [place] [address] Sofie Velazquez MD 15 [facility], 2nd [place] [address] [email or web address] documented as of this encounter Results * Mammogram Outside (No Interpretation) (01/19/2020 12:00 AM EDT) Narrative SYSTEMGENERATED, DOCUMENTATION - 03/06/2021 9:32 AM EST This study is for PACS storage only and not for interpretation. us Provider Not In System PhD IMG OUTSIDE IMAGING W /OUT INTERPRETATION Final Result documented in this encounter Visit Diagnoses Not on filedocumented in this encounter Additional Health Concerns Infection Onset Date Last Indicated Resolved Time COVID-19 12/29/2022 12/29/2022 01/19/2023 1:32 AM EDT documented as of this encounter Care Teams Home Administrator Relationship Specialty Start Date End Date Moira Griffin MD [email or web address] PCP - General Internal Medicine 03/06/21 07/10/21 Partha Burnett MD [address] [place] [address], [address] [place] [address] [email or web address] PCP - General Internal Medicine 07/11/21 Alycia Rolle MD 22 [facility], [address] [place] [address] [email or web address] Obstetrics and Gynecology 07/11/21 Partha Burnett MD [address] [place] [address], [address] [place] [address] Insurance Assigned Provider 07/05/23 documented as of this encounter Additional Source Comments The information contained in this document represents components of the legal health record. It is not the complete legal health record.[facility]
--- OUTSIDE RECORDS SUMMARY | 2025-03-22 08:12 | XMS_ITS | Encounter Summary ---
Author Organization [facility] Address [address] [place] [address] Phone Care Team Providers Care Bicycle Service Technician Name Role Phone Torsten Weller MD Primary Care Provider Moira Griffin MD Primary Care Provider [phone] Partha Burnett MD Primary Care Provider + [phone] Alycia Rolle MD Unavailable [phone] Partha Burnett MD Unavailable [phone] Encounter Details Date Type Department Care Team (Late st Contact Info) Description 05/11/2020 Procedure Pass [facility] Endoscopy Admitting Dept Virtual Department [address] [place] [id number] Social History Tobacco Use Types Packs/Day Years [...] st Contact Info) Description 11/17/2024 Procedure Pass [facility], [facility] [address] [place] [address] 07/04/2025 12:30 PM EDT Appointment [facility] [address] [place] [address] Sofie Velazquez MD [address] [facility], 2nd [place] [address] [email or web address] documented as of this encounter Visit Diagnoses Not on filedocumented in this encounter Additional Health Concerns Infection Onset Date Last Indicated Resolved Time CoV-Risk 07/23/2020 07/23/2020 2020 1:23 AM EDT COVID-19 12/29/2022 12/29/2022 01/19/2023 1:32 AM EDT documented as of this encounter Care Teams Bicycle Service Technician Relationship Specialty Start Date End Date Torsten Weller MD PCP - General Family Medicine 04/21/17 03/05/21 Moira Griffin MD [email or web address] PCP - General Internal Medicine 03/06/21 07/10/21 Partha Burnett MD [address] [place] [address], [address] [place] [address] PCP - General Internal Medicine 07/11/21 Alycia Rolle MD [address] [facility], [address] [place] [address] [email or web address] Obstetrics and Gynecology 07/11/21 Partha Burnett MD [address] [place] [address], [address] [place] [address] [email or web address] Insurance Assigned Provider 07/05/23 documented as of this encounter Additional Source Comments The information contained in this document represents components of the legal health record. It is not the complete legal health record.[facility]
--- OUTSIDE RECORDS SUMMARY | 2025-03-22 08:12 | XMS_ITS | Encounter Summary ---
Author Organization [facility] Address [address] [place] [address] Phone Care Team Providers Care Photoflash Powder Mixer Name Role Phone Moira Griffin MD Primary Care Provider [phone] Partha Burnett MD Primary Care Provider [phone] Alycia Rolle MD Unavailable [phone] Partha Burnett MD Unavailable [phone] Reason for Referral * MRI/CAT Scan - Closed Specialty Diagnoses / Procedures Referred By Duyen t Referred To Contact Radiology Diagnoses Tinnitus, unspecified laterality Procedures MRI Angio Brain Moira Griffin MD Phone: tel: fax: [email or web address] Referral ID Status Reason Start Date Expiration Date Visits Re quested Visits Authorized [id number] Closed 06/21/2021 06/21/2022 1 1 Encounter Details Date Type Department Care Team (Latest Contact Info) Description 06/21/2021 Transcribe Orders Virtual Department [address] [place] [address] Moira Griffin MD [address] [place] [address] [email or web address] Tinnitus, unspecified laterality (Primary Dx) Social History Tobacco Use Types [...] st Contact Info) Description 11/17/2024 Procedure Pass [address] [address] 07/04/2025 12:30 PM EDT Appointment [address] [address] Sofie Velazquez MD [address] [place] [address], [address] [place] [address] [email or web address] documented as of this encounter Results * MRA HEAD WITHOUT CONTRAST (06/22/2021 2:39 PM EDT) Anatomical Region Laterality Modality Head Magnetic Resonan ce 06/22/2021 2:57 PM EDT Impressions 06/22/2021 3:06 PM EDT No aneurysm. Narrative 06/22/2021 3:06 PM EDT COMPARISON: None. TECHNIQUE: Exam performed on 1.5 Anusha high-field MRI scanner. Axial 3-D [id number] MR angiogram. Source raw data and angiographic MIP images are available for review. MRA HEAD FINDINGS: Anterior circulation: Normal. Posterior circulation: Procedure Note Partha Rader MD - 06/22/2021 COMPARISON: None. TECHNIQUE: Exam performed on 1.5 Anusha high-field MRI scanner. Axial 4-[id number] MR angiogram. Source raw data and angiographic MIP imagesare available for review. MRA HEAD FINDINGS: Anterior circulation: Normal. Posterior circulation: IMPRESSION: No aneurysm. Moira Griffin MD IMG MR HEAD/NECK Final Resu lt documented in this encounter Visit Diagnoses Diagnosis Tinnitus, unspecified laterality- Primary Tinnitus, unspecified laterality documented in this encounter Additional Health Concerns Infection Onset Date Last Indicated Resolved Time COVID-19 12/29/2022 12/29/2022 01/19/2023 1:32 AM EDT documented as of this encounter Care Teams Photoflash Powder Mixer Relationship Specialty Start Date End Date Moira Griffin MD PCP - General Internal Medicine 03/06/21 07/10/21 Partha Burnett MD [address] [place] [address], [address] [address] PCP - General Internal Medicine 07/11/21 Alycia Rolle MD [address] [place] [address], [address] [place] [address] Obstetrics and Gynecology 07/11/21 Partha Burnett MD [address] [place] [address], [address] [address] Insurance Assigned Provider 07/05/23 documented as of this encounter Additional Source Comments The information contained in this document represents components of the legal health record. It is not the complete legal health record.[facility]
--- OUTSIDE RECORDS SUMMARY | 2025-03-22 08:13 | XMS_ITS | Encounter Summary ---
Author Organization [facility] Address [address] [facility] [address] [place] [address] Phone Care Team Providers Care Administrative Hearing Officer Name Role Phone Partha Burnett MD Primary Care Provider [phone] Alycia Rolle MD Unavailable [phone] Partha Burnett MD Unavailable [phone] Encounter Details Date Type Department Care Team (Latest Contact Info) Description 11/17/2024 Transcribe Orders Virtual Department [address] [place] [address] Sofie Velazquez MD [address] [facility], [address] [place] [address] 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 Not on file Not on file documented as of this encounter Plan of Treatment Upcoming Encounters Date Type Department Care Team (Late st Contact Info) Description 11/17/2024 Procedure Pass [facility], Mammography- [address] [address] 07/04/2025 12:30 PM EDT Appointment [facility], Mammography- [address] [address] Sofie Velazquez MD [address] [facility], 2nd [place] [address] Scheduled Orders Name Type Priority Associated Diagnoses Orde r Schedule Mammogram Screening (Bilateral) Imaging Routine Breast screening Expected: 12/18/2024, Expires: 11/17/2025 documented as of this encounter Visit Diagnoses Diagnosis Breast screening- Primary Breast screening, unspecified documented in this encounter Additional Health Concerns Assessment Noted Time PHQ-2 Depression Total Score: 1 05/11/19 25 8:14 AM EST documented as of this encounter Care Teams Administrative Hearing Officer Relationship Specialty Start Date End Date Partha Burnett MD [address] [facility], [address] [place] [address] PCP - General Internal Medicine 07/11/21 Alycia Rolle MD [address] [facility], [address] [place] [address] Obstetrics and Gynecology 07/11/21 Partha Burnett MD [address] [facility], [address] [place] [address] Insurance Assigned Provider 07/05/23 documented as of this encounter Additional Source Comments The information contained in this document represents components of the legal health record. It is not the complete legal health record.[facility]
--- NOTE | 2025-03-22 08:20 | PC.NURSE ---
Patient presents to ED with complaints of numbness and tingling of bilateral legs. Patient states she has had L4 and L5 problems for a couple of years but never experienced numbness if the legs. +movement and circulation. Neuro exam WNL. VSS. No needs at this time.
--- NOTE | 2025-03-22 08:26 | ED_ITS ---
HPI - Back Pain/Injury General Chief Complaint: Back Pain/Injury Stated Complaint: Back Pain Time Seen by Provider: 03/22/25 08:13 History of Present Illness ED Provider: Jud Negron NP HPI Narrative: 74-year-old female patient medical history significant for hypothyroidism, hypertension, mood disorder presents to the ED with her for evaluation of lower leg tingling that began acutely in the middle of the night. Patient reports that she woke in the middle of the night feeling as though the lower half of her body was numb. She reports that she now has tingling from the lower back around the waist, down to the toes. She does have history of L4-L5 disc issues, and is feeling increased discomfort to the area. Reports he is walking around is difficult. No any recent injury, trauma, overuse. Tingling is bilateral, there is no unilateral pain or discomfort. No numbness, tingling in the groin. No saddle anesthesia. No decrease in strength of the lower legs. No urinary complaints including incontinence, retention, urgency or frequency, dysuria or hematuria. No chest pain or pressure, shortness of breath or abdominal pain. Related Data Previous Rx's ?Medication ?Instructions ?Recorded gabapentin 100 mg capsule 100 mg PO BEDTIME 30 days #3 0 caps 03/22/25 Allergies Allergy/AdvReac Type Severity Reaction Status Date / Time Penicillins Allergy Mild Hives Verified 03/22/25 06:07 Review of Systems 2 Review of Systems: ROS is otherwise negative unless mentioned in HPI. [facility] Social History Social History Substance Use Type: Marijuana Advance Directives: No Advance Directives Information Provided: Yes Physical Exam 2 Exam: Exam: Nursing notes and vital signs reviewed. Constitutional: Well-appearing, NAD. Alert. Oriented X3. Eyes: EOMI. ENT: Pharynx normal. Neck: Normal inspection. Neck supple. CVS: Normal heart rate and rhythm. Pulses normal. Respiratory: No respiratory distress. Breath sounds normal. Abdomen: Soft, nontender, nondistended. No CVA tenderness bilaterally. Skin: Skin warm and dry. Normal skin color. Extremities: No lower extremity edema. 2+ patellar DTRs. No midline spinal tenderness throughout. Neuro: Oriented X 3. No motor deficit. Vital Signs: Vital Signs: Last Vital Signs Temp 97.7 F 12/23/25 11:59 Pulse 55 03/22/25 11:59 Resp 16 03/22/25 11:59 BP 139/68 03/22/25 11:59 Pulse Ox 97 03/22/25 11:59 O2 Del Method Room Air 03/22/25 11:59 BMI result Body Mass Index 27.8 Medical Decision Making Medical Decision Making [facility] Narrative: This is a well-appearing 74-year-old female coming for evaluation of lower back pain, now with tingling to the bilateral legs from the waist down. There is no pain, I have low clinical suspicion that this is sciatica or stroke given it is unilateral. There is no leg weakness. Strength 5/5 bilaterally. Low concern for cord compression, cauda equina as she does have 2+ patellar DTRs bilaterally, is ambulatory. No urinary complaints. Not feeling as though there is numbness in the groin, and no urinary incontinence. Negative straight leg raise test bilaterally. Plan for bladder scan, urinalysis, labs, as well as CT imaging of the lumbar spine to rule underlying malignancy or mass, wedge/compression fracture. Upon my assessment she is resting comfortably reading a book. 1230-- CT does show evidence of significant spinal stenosis of the lumbar spine. Upon reassessment, she is ambulatory with steady gait. She is able to heel walk, toe walk without any difficulties. This is likely a chronic finding, she may have a pinched nerve creating some discomfort. I do want her to follow up outpatient with orthospine. She is agreeable with the plan of care, as is her . Pending urinalysis, will prep discharge; given return precautions to the ED. Agreeable to treatment with gabapentin. 1:00--UA without signs of infection. Will proceed with discharge plan. Return precautions stressed. Differential Diagnosis Differential Diagnoses: The differential diagnosis associated with the presentation includes Cauda equina, cord compression, stroke, compression fracture, spinal stenosis, sciatica Admission/Observation Consideration of admission/observation: Escalation of care including admission/observation considered (Not indicated) Lab Data [facility] Lab Attestation statement: I reviewed the patient's lab results. (Reassuring overall.) 03/22/25 08:49 03/22/25 08:49 Labs: Lab Results 03/22/25 03/22/25 Range/Units 08:49 12:52 WBC 4.6 L (4.8-10.8) X10*3/uL RBC 3.78 L (4.20-5.50) X10*6/uL Hgb 12.5 (12.0-16.0) g/dl Hct 38.1 (37.0-47.0) % MCV 100.8 H (80.0-98.0) fL MCH 33.1 H (27.0-33.0) pg MCHC 32.8 (31.0-35.0) g/dl RDW 12.1 (11.0-16.0) % Plt Count 270 (160-400) X10*3/uL MPV 9.9 (9.4-12.3) fL Immature Gran % (Auto) 0.2 (0.0-0.4) % Neut % (Auto) 68.1 (45-73) % Lymph % (Auto) 21.2 (20-40) % [place] % (Auto) 8.3 (2-11) % Eos % (Auto) 1.8 (0-4) % Baso % (Auto) 0.4 (0-2) % Lymph # (Auto) 1.0 L (1.2-4.9) X10*3/uL [place] # (Auto) 0.4 (0.1-1.2) X10*3/uL Eos # (Auto) 0.1 (0.0-0.4) X10*3/uL Baso # (Auto) 0.0 (0.0-0.2) X10*3/uL Abs Immat Gran (auto) 0.01 (0.00-0.03) X10*3/uL Absolute Neuts (auto) 3.1 (2.0-8.3) x10*3/uL Absolute Nucleated RBC 0.000 (0.0-0.012) X10*3/uL Nucleated RBC % (auto) 0.0 (0.0-0.2) /100WBC PT 10.5 L (11.2-13.5) SEC INR 0.9 (0.9-1.1) Sodium 140 (135-145) mmol/L Potassium 4.1 (3.3-5.1) mmol/L Chloride 110 H (96-108) mmol/L Carbon Dioxide 23 (22-29) mmol/L Anion Gap 11 L (12-20) BUN 16 (9-16) mg/dL Creatinine 0.89 (0.5-1.4) mg/dL Estim Creat Clear Calc 59.3 Estimated GFR > 60 Random Glucose 77 (60-115) mg/dL Calcium 8.7 D (8.4-10.2) mg/dL Urine Color Yellow Urine Appearance Clear Urine pH 6.5 (5.0-9.0) Ur Specific [place] 1.015 (1.005-1.025) Urine Protein Negative (Neg-Trace) mg/dL Urine Glucose (UA) Negative (Negative) mg/dL Urine Ketones Negative (Negative) mg/dL Urine Blood Trace H (Negative) Urine Nitrite Negative (Negative) Ur Leukocyte Esterase Negative (Negative) Independent Interpretation I performed an independent interpretation of an: CT Scan Interpretation: I have reviewed the patient's imaging and agree with the radiologist's findings. Radiology Impression Discussion of test interpretation with radiology: I have reviewed the radiologist's reading. Radiologist Impression: XR/XR lumbar spine 2-3V IMPRESSION: Grade I spondylolisthesis of L3 on L4. Degenerative changes as described. CT/CT lumbar spine wo IV con IMPRESSION: Multilevel degenerative disc disease and facet arthropathy. No acute bony abnormality L2-L3: There is mild spinal stenosis. L3-L4: There is moderate to severe spinal stenosis. L4-L5: There is mild, possibly moderate spinal stenosis. There is moderate bilateral foraminal narrowing. Independent Historian Clinical information obtained from an independent historian. History obtained from or confirmed by: Spouse External Record Review External record reviewed: Outside ED record Chronic Conditions Patient?s care impacted by: Other (Lumbar spinal stenosis) Social Determinants Patient?s care significantly limited by Social Determinants of Health including: Problems related to primary support group Discharge Plan Discharge Clinical Impression: Lumbar radiculopathy, Spinal stenosis Patient Disposition: Home, Self-Care Instructions: Lumbar Radiculopathy (ED) Additional Instructions: As we discussed, you were seen in the ER today for evaluation of tingling in the low back down both of the legs. You had a broad workup, that include reassuring lab work. You had a CT scan of your lumbar spine which reveal evidence of spinal stenosis at L2 through L5. I have listed the results below for your convenience, for your follow up appointment with Orthopedic spine. Please contact them to have an appointment within the next 1 week. Please follow up with your primary care provider within the next 1 week as well. I have prescribed you a short course of gabapentin which can be used to help with the neuropathic pain. With any new or worsening complaints at any time, please return back to the ED for additional assessment. CT/CT lumbar spine wo IV con IMPRESSION: Multilevel degenerative disc disease and facet arthropathy. No acute bony abnormality L2-L3: There is mild spinal stenosis. L3-L4: There is moderate to severe spinal stenosis. L4-L5: There is mild, possibly moderate spinal stenosis. There is moderate bilateral foraminal narrowing. Prescriptions: New gabapentin 100 mg capsule 100 mg PO BEDTIME 30 Days Qty: 30 0RF Referrals: Uziel Hill MD, PhD [Physician, Neuro Spine] Print Language: Russian
[2025-03-22 08:52] LABS: MANUAL DIFF FLAG NO
[2025-03-22 08:54] LABS: Hematocrit 38.1 % (37.0-47.0); Hemoglobin 12.5 g/dl (12.0-16.0); Imm Gran Abs Auto 0.01 X10*3/uL (0.00-0.03); Imm Gran Pct Auto 0.2 % (0.0-0.4); Lymphocytes Absolute Auto 1.0 X10*3/uL (1.2-4.9); Mean Corpuscular HGB Conc 32.8 g/dl (31.0-35.0); Mean Corpuscular Hemoglobin 33.1 pg (27.0-33.0); Mean Corpuscular Volume 100.8 fL (80.0-98.0); NRBC Abs Auto 0.000 X10*3/uL (0.0-0.012); NRBC Pct Auto 0.0 /100WBC (0.0-0.2); Platelet Count 270 X10*3/uL (160-400); Red Blood Count 3.78 X10*6/uL (4.20-5.50); White Blood Count 4.6 X10*3/uL (4.8-10.8)
[2025-03-22 09:00] LABS: INTERNATIONAL NORM RATIO 0.9 (0.9-1.1); Prothrombin Time 10.5 SEC (11.2-13.5)
[2025-03-22 09:13] LABS: Anion Gap 11 (12-20); Blood Urea Nitrogen 16 mg/dL (9-16); Calcium 8.7 mg/dL (8.4-10.2); Carbon Dioxide 23 mmol/L (22-29); Chloride 110 mmol/L (96-108); Creatinine Clr Calc Pharmacy 59.3; Estimated Glomerular Filt Rate > 60; Potassium 4.1 mmol/L (3.3-5.1); Sodium 140 mmol/L (135-145)
[2025-03-22 11:59] VITALS: BP 139/68; PULSE 55; RESP 16; TEMP 36.5; O2SAT 97
[2025-03-22 12:58] LABS: Appearance Urine Clear; Glucose Urine UA Negative (Negative); PH 6.5 (5.0-9.0); Specific Gravity - Urine 1.015 (1.005-1.025); UMIC TRIGGER UACC YES
[2025-03-22 13:06] VITALS: BP 139/68; PULSE 55; RESP 16; TEMP 36.5; O2SAT 97
== END 2025-03-22 13:06 | disposition home or self-care (01) ==
PROVIDERS: Nurse Practitioner; Emergency Provider Emergency Medicine
DX: M54.16 Radiculopathy, lumbar region (principal); M48.061 Spinal stenosis, lumbar region without neurogenic claudication; I10 Essential (primary) hypertension; Z79.899 Other long term (current) drug therapy; Z87.39 Personal history of other diseases of the musculoskeletal system and connective tissue
CPT/HCPCS: 36415; 51798; 72100; 72131; 80048; 81001; 85025; 85610; 99284

== ENCOUNTER → 2025-03-22 06:25 | Outpatient (BNV) | payer MEDICARE, BC, SELFPAY | PROVIDERS: Emergency Provider Emergency Medicine; Visit Provider Radiology Diagnostic Radiology | DX: M51.360 Other intervertebral disc degeneration, lumbar region with discogenic back pain only (principal); M48.061 Spinal stenosis, lumbar region without neurogenic claudication | CPT/HCPCS: 72100; 72131 ==

== ENCOUNTER 2025-03-29 12:59 | Outpatient (AMB) | payer MEDICARE, BC, SELFPAY ==
--- OUTSIDE RECORDS SUMMARY | 2020-11-27 10:33 | XMS_ITS | Encounter Summary ---
Author Organization [facility] Address [facility] [address] [place] [address] Phone Care Team Providers Care Contracts Specialist Name Role Phone Torsten Weller MD Primary Care Provider [phone] Encounter Details Date Type Department Care Team (Late st Contact Info) Description 11/27/2020 11:33 AM EDT Hospital Encounter [facility] [address] [place] [id number] Blanca Nair, MARKETING PROGRAM COORDINATOR[address] [address] [email or web address] Social History Tobacco Use Types Packs/Day [...] 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 Not on file Not on file documented as of this encounter Plan of Treatment Upcoming Encounters Date Type Department Care Team (Late st Contact Info) Description 11/17/2024 Procedure Pass [address] [address] 04/21/2025 3:45 PM EST Office Visit [facility] [address] [place] [address] Partha Burnett MD [address] [facility], [address] [place] [address] 05/12/2025 1:15 PM EST Office Visit [facility] [address] [place] [address] Arden Andrea, DO [address] [place] [address] Yonathan Jimenez, PT [address] [place] [address] 05/19/2025 9:30 AM EST Office Visit [facility] [address] [place] [address] Arden Andrea, DO [address] [place] [address] Yonathan Jimenez, PT [address] [place] [address] 05/24/2025 9:30 AM EST Office Visit [facility] [address] [place] [address] Arden Andrea, DO [address] [place] [address] Yonathan Jimenez, PT [address] [place] [address] 05/31/2025 8:45 AM EST Office Visit [facility] [address] [place] [address] Arden Andrea, [place] [address] Yonathan Jimenez, PT [address] [place] [address] 06/02/2025 8:45 AM EST Office Visit [facility] [address] [place] [address] Arden Andrea, DO [address] [place] [address] Yonathan Jimenez, PT [address] [place] [address] 06/07/2025 2:00 PM EDT Office Visit [facility] [address] [place] [address] Arden Andrea, DO [address] [place] [address] Yonathan Jimenez, PT [address] [place] [address] 06/09/2025 8:45 AM EDT Office Visit [facility] [address] [place] [address] Arden Andrea, DO [address] [place] [address] Yonathan Jimenez, PT [address] [place] [address] [email or web address] 06/14/2025 8:00 AM EDT Office Visit [facility] [address] [place] [address] Arden Andrea, DO [address] [place] [address] Yonathan Jimenez, PT [address] [place] [address] 07/04/2025 12:30 PM EDT Appointment [facility] [address] [place] [address] Sofie Velazquez MD 15 [facility], 2nd [place] [address] documented as of this encounter Procedures Procedure [...] report originally createdby Jim Pimentel. Blanca Nair MARKETING PROGRAM COORDINATOR IMG XR LOWER EXTREMITY Joesphine l Result documented in this encounter Visit Diagnoses Not on filedocumented in this encounter Additional Health Concerns Infection Onset Date Last Indicated Resolved Time COVID-19 12/29/2022 12/29/2022 01/19/2023 1:32 AM EDT documented as of this encounter Care Teams Contracts Specialist Relationship Specialty Start Date End Date Torsten Weller MD [email or web address] PCP - General Family Medicine 04/21/17 03/05/21 documented as of this encounter Additional Source Comments The information contained in this document represents components of the legal health record. It is not the complete legal health record.[facility]
--- OUTSIDE RECORDS SUMMARY | 2023-11-04 04:00 | XMS_ITS ---
Author Organization [facility] bar[facility] [place] Address [address] [facility] [place] [address] Care Team Providers Care Tire Molder Name Role Phone Hortencia CHURCHILL, Partha Primary Care Provider Antonio [facility] [phone] Encounters Encounter Location Date Provider Diagnosis [address] [address] 11/04/2023 Antonio Munoz Plan Of Treatment No Information Progress Notes * Lilly DHALIWAL BDOB: [birth year] (74 yo F)Acc No.[id number]:11/04/2023 Progress Note Patient: Lilly HALEY Provider: Vaibhav Mena DPM :1950 A ge:73 Y S ex:Female Date:11/04/2023 Address:[address] [id number] Pcp:Partha Burnett MD Subjective: * Chief Complaints: [...] DPM Date: 0 11/04/2023 Generated for Renee jiménez/Linda/Patriciaransmitting on: 04:52 PM EST
--- OUTSIDE RECORDS SUMMARY | 2023-11-06 05:15 | XMS_ITS ---
Author Organization [facility] Address [address] [place] [address] Care Team Providers Care Hot Baller Name Role Phone Hortencia CHURCHILL, Partha Primary Care Provider UnaAntonio Cole [phone] Chavarria Encounters Encounter Location Date Provider Diagnosis [facility] [address] [place] [address] 11/06/2023 Antonio Munoz Plan Of Treatment No Information Progress Notes * Lilly DHALIWAL BDOB: [birth year] (74 yo F)Acc No.[id number]:11/06/2023 Progress Notes Patient: Lilly HALEY Provider: Vaibhav Mena DPM :1950 A ge:73 Y S ex:Female Date:11/06/2023 Address: [address] [id number] Pcp:Partha Burnett MD Subjective: * Chief Complaints: * [address] Chavarria. * Medical History: Objective: * Vitals: Assessment: Plan: * Treatment: * Images: * The named appointment provid er may or may not be the originator of this progress note, and it is not deemed complete until electronically signed by the appointment provider. Sign off status: Pending * Provider: Vaibhav Mena DPM Date: 0 11/06/2023 Generated for Printi ng/Fajordang/eTransmitting on: 1 02:40 PM EST
--- OUTSIDE RECORDS SUMMARY | 2025-03-22 | XMS_ITS | Encounter Summary ---
Author Organization [facility] Address Formerly [facility] [employer] [facility] [address] [place] [address] Phone Care Team Providers Care Criminal Researcher Name Role Phone Partha Burnett MD Primary Care Provider [phone]- [phone] Alycia Rolle MD Unavailable Partha Burnett MD Unavailable [phone] Encounter Details Date Type Department Care Team (Late st Contact Info) Description 03/22/2025 Hospital Encounter [facility],Outside Imaging [address] [place] [address] Unknown, Unknown, MD Arrived Social History Tobacco Use Types Packs/Day Years Used Date Smoking Tobacco: Former Cigarettes Q uit: 1979 Smokeless Tobacco: Never Alcohol Use Standard Drinks/Week [...] 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 file Not on file documented as of this encounter Plan of Treatment Upcoming Encounters Date Type Department Care Team (Late st Contact Info) Description 11/17/2024 Procedure Pass [facility] [address] [place] [address] 04/21/2025 3:45 PM EST Office Visit [facility] [address] [place] [address] Partha Burnett MD [address] [facility], [address] [place] [address] 05/12/2025 1:15 PM EST Office Visit [facility] [address] [place] [address] Arden Andrea, DO [address] [place] [address] Yonathan Jimenez, PT [address] [place] [address] 05/19/2025 9:30 AM EST Office Visit [facility] [address] [place] [address] Arden Andrea, DO [address] [place] [email or web address] Yonathan Jimenez, PT 8 [place] [address] 05/24/2025 9:30 AM EST Office Visit [facility] [address] [place] [address] Arden Andrea, DO [address] [place] [address] Yonathan Jimenez, PT [address] [place] [address] 05/31/2025 8:45 AM EST Office Visit [facility] [address] [place] [address] Arden Andrea, DO [address] [place] [address] Daniel Jimenezrobertoroman, PT 8 [place] [address] 06/02/2025 8:45 AM EST Office Visit [facility] [address] [place] [address] Arden Andrea, DO [address] [place] [address] Yonathan Jimenez, PT 8 [place] [address] 06/07/2025 2:00 PM EDT Office Visit [facility] [address] [place] [address] Arden Andrea, DO [address] [place] [address] Yonathan Jimenez, PT [address] [place] [address] 06/09/2025 8:45 AM EDT Office Visit [facility] [address] [place] [address] Arden Andrea, DO [address] [place] [address] Tony Yesseniaroman, PT [address] [place] [address] 06/14/2025 8:00 AM EDT Office Visit [facility] [address] [place] [address] Arden Andrea, DO [address] [place] [address] Yonathan Jimenez, PT [address] [place] [address] [email or web address] 07/04/2025 12:30 PM EDT Appointment [facility], [facility] [address] [place] [address] Sofie Velazquez MD [address] [facility], 2nd [place] [address] documented as of this encounter Procedures Procedure Name Priority Date/Time Associated Diagnosis Comments CT SPINE (BONE) OUTSIDE (NO INTERPRETATION) Routine 03/22/2025 12:00 AM EST documented in this encounter Results * CT Spine (Bone) Focus Outside (No Interpretation) (03/22/2025 12:00 AM EST) Narrative Record, 03/29/2025 11:40 AM EST This study is for PACS storage only and not for interpretation. Procedure Note Record, 03/29/2025 This study is for PACS storage only and not for interpretation. us Unknown Unknown MD HORN OUTSIDE IMAGING W/OUT INT ERPRETATION Final Result documented in this encounter Visit Diagnoses Not on filedocumented in this encounter Additional Health Concerns Assessment Noted Time PHQ-2 Depression Total Score: 1 05/11/19 25 8:14 AM EST documented as of this encounter Care Teams Criminal Researcher Relationship Specialty Start Date End Date Partha Burnett MD [address] [facility], [address] [place] [address] PCP - General Internal Medicine 07/11/21 Alycia Rolle MD [address] [place] [address], [address] [place] [address] Obstetrics and Gynecology 07/11/21 Partha Burnett MD [address] [place] [address], [address] [place] [address] Insurance Assigned Provider 07/05/23 documented as of this encounter Additional Source Comments The information contained in this document represents components of the legal health record. It is not the complete legal health record.[facility]
--- OUTSIDE RECORDS SUMMARY | 2025-03-22 00:05 | XMS_ITS | Encounter Summary ---
Author Organization [facility] Address [facility] [employer] [facility] [address] [place] [address] Phone Care Team Providers Care Retail Loss Prevention Investigator Name Role Phone Partha Burnett MD Primary Care Provider [phone] Alycia Rolle MD Unavailable [phone] Partha Burnett MD Unavailable [phone] Encounter Details Date Type Department Care Team (Late st Contact Info) Description 03/22/2025 12:05 AM EST Hospital Encounter [facility],Outside Imaging [address] [place], [place] [id number] Unknown, Unknown, MD Arrived Social History Tobacco [...] 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 Not on file documented as of this encounter Plan of Treatment Upcoming Encounters Date Type Department Care Team (Late st Contact Info) Description 11/17/2024 Procedure Pass [facility] [address] [place] [address] 04/21/2025 3:45 PM EST Office Visit [facility] [address] [place] [address] Partha Burnett MD [address] [facility], [address] [place] [address] 05/12/2025 1:15 PM EST Office Visit [facility] Physical Therapy [address] [place] [address] Arden Andrea, DO 22 [place] [address] Yonathan Jimenez, PT [address] [place] [address] 05/19/2025 9:30 AM EST Office Visit [facility] Physical Therapy [address] [place] [address] Arden Andrea, DO [address] [place] [email or web address] Yonathan Jimenez, PT 8 [place] [address] 05/24/2025 9:30 AM EST Office Visit [facility] Physical Therapy [address] [place] [address] Arden Andrea, DO 22 [place] [address] Yonathan Jimenez, PT 8 [place] [address] 05/31/2025 8:45 AM EST Office Visit [facility] Therapy Clinic [address] [place] [address] Arden Andrea, DO 22 [place] [address] [email or web address] Tony Yonathan, PT 8 [place] [address] 06/02/2025 8:45 AM EST Office Visit [facility] [address] [place] [address] Arden Andrea, DO 22 [place] [address] Tony Yesseniaroman, PT 8 [place] [address] 06/07/2025 2:00 PM EDT Office Visit [facility] Physical Therapy Clinic [address] [place] [address] Arden Andrea, DO 22 [place] [address] Yonathan Jimenez, PT 8 [place] [address] 06/09/2025 8:45 AM EDT Office Visit [facility] Physical Therapy Clinic [address] [place] [address] Arden Andrea, DO 22 [place] [address] TonyYonathan, PT 8 [place] [address] 06/14/2025 8:00 AM EDT Office Visit [facility] [address] [place] [address] Arden Andrea, DO 22 [place] [address] Yonathan Jimenez, PT 8 [place] [address] 07/04/2025 12:30 PM EDT Appointment [facility] [address] [place] [address] Sofie Velazquez MD [address] [facility], 2nd [place] [address] documented as of this encounter Procedures Procedure Name Priority Date/Time Associated Diagnosis Comments XR SPINE OUTSIDE (NO INTERPRETATION) Routine 03/22/2025 12:05 AM EST documented in this encounter Results * XR SPINE OUTSIDE(NO INTERPRETATION) (03/22/2025 12:05 AM EST) Narrative Record, 03/29/2025 11:40 AM [...] documented as of this encounter Care Teams Retail Loss Prevention Investigator Relationship Specialty Start Date End Date Partha Burnett MD [address] [facility], [address] [place] [address] PCP - General Internal Medicine 07/11/21 Alycia Rolle MD [address] [place] [address], [address] [place] [address] Obstetrics and Gynecology 07/11/21 Partha Burnett MD [address] [place] [address], [address] [place] [address] [email or web address] Insurance Assigned Provider 07/05/23 documented as of this encounter Additional Source Comments The information contained in this document represents components of the legal health record. It is not the complete legal health record.[facility]
--- OUTSIDE RECORDS SUMMARY | 2025-03-28 08:30 | XMS_ITS | Encounter Summary ---
Author Organization [facility] Address [address] [facility] [address] [place] [address] Phone Care Team Providers Care Automotive Buyer Name Role Phone Partha Burnett MD Primary Care Provider [phone] Alycia Rolle MD Unavailable [phone] Partha Burnett MD Unavailable [phone] Reason for Referral * Physical Therapy (Within 3 days (urgent)) - New Request Specialty Diagnoses / Procedures Referred By Duyen hyde Referred To [place] [address] Phone: tel: fax: [email or web address] [address] [address] Phone: tel: Referral ID Status Reason Start Date Expiration Date V isits Requested Visits Authorized [id number] New Request 03/28/2025 03/28/2026 1 1 * Consultation (Within 2 weeks) - New Request Specialty Diagnoses / Procedures Referred By Duyen hyde Referred To [place] [address] Phone: tel: fax: [email or web address] Referral ID Status Reason Start Date Expiration Date V isits Requested Visits Authorized New Request 03/28/2025 03/28/2026 1 1 Reason for Visit * Reason Comments Medication Review PT would like to dis cuss gabapentin and is starting GI issue Follow-up Pt was numb waste do wn went to ED and is here for follow up ppt also thinks her hands going numb may be a connecting factor Encounter Details Date Type Department Care Team (Late st Contact Info) Description 03/28/2025 8:30 AM EST Office Visit [facility] [address] [place] [address] Arden Andrea DO [address] [place] [address] [email or web address] Spinal stenosis of lumbar region, unspecified whether neurogenic claudication present (Primary Dx); Lumbar foraminal stenosis; Sensory neuropathy Social History Tobacco Use Types Packs/Day Years [...] your housing situation today? 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 Not on file Not on file Not on file documented as of this encounter Last Filed Vital Signs Vital Sign Reading Time Taken Comments Blood Pressure 120/64 03/28/2025 8:37 AM EST Pulse 61 03/28/2025 8:37 AM EST Temperature 35.7 C (96.3 F) 03/28/2025 8:37 AM EST Respiratory Rate - - Oxygen Saturation 97% 03/28/2025 8:37 AM EST Inhaled Oxygen Concentration - - Weight 81.5 kg (179 lb 9.6 oz) 03/28/2025 8:37 A M EST Height - - Body Mass Index 28.55 12/12/2024 10:06 AM EDT documented in this encounter Patient Instructions * Patient Instructions* Arden Andrea DO - 03/28/2025 8:30 AM EST Ice or heat 20 mins 4 x a day Keep appt with Dr Hill tomorrow Add in Maalox Home exercises Follow-up if worsens changes prior to seeing Dr Hill * Attachments The following attachments cannot be sent through Care Everywhere. * Low Back Arthritis: Exercises (Cymraes) documented in this encounter Progress Notes * Arden Andrea, - 03/28/2025 8:30 AM EST Subjective: History of Present Illness Patient seen at [facility] ED 03/22/2025 CT scan lumbar spine shows L2-L3 disc bulging with mild spinal stenosis and mild foraminal narrowing greater on the left at L3-L4 mild anterior listhesis disc bulge moderate facet arthropathy moderate to severe spinal stenosis and minimal foraminal narrowing L4-L5 grade 1 retrolisthesis of the retrolisthesis moderate facet arthropathy and moderate spinal stenosis and bilateral foraminal narrowing She was Rx gabapentin 100 mg at at bedtime Referral to Dr. Hill neuro spine at [facility] Lilly Dhaliwal is a 74 year old female with spinal stenosis who presents with numbness and tinglingin her lower body. She has had new numbness and tingling in her lower body for the past 5 to 6 nights, which led to anER visit where CT imaging reportedly showed spinal stenosis. She also has chronic lower back ache and new tingling in her hands, which she worries may be related. For the past 7 to 8 months she has had a bilateral sensation in her toes like tape over them that affects skin movement without pain or tingling. She denies new bladder or bowel incontinence but notes a weaker urine stream and constipation. She stopped gabapentin due to stomach burning and now uses Advil, stretching, and ice with some relief. Sitting in a recliner with her knees up is most comfortable. She recently injured her meniscus and uses a knee brace. She has started using a cane because of knee symptoms. Prior nerve conduction studies showed bilateral carpal tunnel syndrome despite prior left wrist surgery. She still has numbness in the ring and small fingers, and a specialist suggested possible cubital tunnel syndrome. An elbow MRI was ordered and results are pending. She is worried that her symptoms are progressing, describing tingling that has spread from her lower body and an intense sensation of feeling her heartbeat throughout her body that she finds very uncomfortable. 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 04/09/2022 Carpal tunnel syndrome of left wrist 04/09/2022 History of colonic polyps 02/27/2022 Palpitations 11/30/2021 Lumbar degenerative disc disease 07/11/2021 Acquired hypothyroidism 07/11/2021 Mixed hyperlipidemia 07/11/2021 Recurrent major depressive disorder, in full remission 07/11/2021 History of breast cancer 07/11/2021 Essential hypertension 07/11/2021 Family history of ovarian cancer 02/20/2021 Review of Systems See HPI above Review of Systems Vitals: 03/28/25 0837 BP: 120/64 BP Location: Right arm Patient Position: Sitting Cuff Size: Large Pulse: 61 Temp: 35.7 ??C (96.3 ??F) SpO2: 97% Weight: 81.5 kg (179 lb 9.6 oz) Body mass index is 28.55 kg/m??. Objective: Physical Exam Heart RRR Lungs clear to auscultation Neuro Alert and oriented x 3 Cranial nerves II through XII grossly intact Motor 5/5 and equal bilaterally Sensation decreased sensation bilateral toes and lateral aspect of both feet patellar deep tendon reflexes patella 2/4 left 1/4 right difficult to elicit Achilles bilaterally Data Review 1. Spinal stenosis of lumbar region, unspecified whether neurogenic claudication present (Primary) 2. Lumbar foraminal stenosis Assessment & Plan: L2/L3 L3/L4 L4/L5 3. Sensory neuropathy Other orders - Ambulatory referral to External Neurosurgery - Ambulatory referral to [facility] Physical Therapy Assessment & Plan Lumbar spinal stenosis Symptoms include lower back pain, numbness, tingling, and mild electric sensations. Gabapentin discontinued due to side effects. Advil and ice provide relief. Considering second opinion for comprehensive neurological assessment. -Patient has appointment scheduled Dr. Tatum spinal surgeon [facility] tomorrow however she is requesting referral to [facility] neurosurgery department. 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 - Continue ice or heat for symptom relief. - Referred to [facility] for neurological assessment. - Advised follow-up with primary care after neurosurgeon consultation. Bilateral upper extremity neuropathies (carpal tunnel and cubital tunnel syndromes) Persistent numbness suggests cubital tunnel syndrome. MRI of elbow pending. Patient is wondering about a possible relation to lumbar spinal stenosis. - Referred to [facility] for neurological assessment, including upper extremity neuropathies. - Await MRI results of the elbow. Return in about 2 weeks (around 04/11/2025) for Recheck w PCP . Patient Instructions Ice or heat 20 mins 4 x a day Keep appt with Dr Hill tomorrow Add in Maalox Home exercises Follow-up if worsens changes prior to seeing Dr Hill I obtained verbal consent from the patient or their proxy to record this visit for purposes of producing a draft of the encounter documentation. documented in this encounter Miscellaneous Notes * Assessment & Plan Note - Arden Andrea DO - 03/28/2025 7:55 AM EST Associated Problem(s): Lumbar foraminal stenosis L2/L3 L3/L4 L4/L5 documented in this encounter Plan of Treatment Upcoming Encounters Date Type Department Care Team (Late st Contact Info) Description 11/17/2024 Procedure Pass [address] [place] [address] 04/21/2025 3:45 PM EST Office Visit [facility] Primary [facility] [address] [place] [address] Partha Burnett MD [address] [place] [address], [address] [place] [address] 05/12/2025 1:15 PM EST Office Visit [facility] [address] [place] [address] Arden Andrea, [address] [place] [address] Yonathan Jimenez, PT [address] [place] [address] 05/19/2025 9:30 AM EST Office Visit [facility] [address] [place] [address] Arden Andrea, [address] [place] [address] Yonathan Jimenez, PT 8 [place] [address] 05/24/2025 9:30 AM EST Office Visit [facility] [address] [place] [address] [place] [address] Yonathan Jimenez, PT 8 [place] [address] 05/31/2025 8:45 AM EST Office Visit [facility] [address] [place] [address] Arden Andrea, DO [address] [place] [address] Yonathan Jimenez, PT 8 [place] [address] 06/02/2025 8:45 AM EST Office Visit [facility] [address] [place] [address] Arden Andrea, DO [address] [place] [address] Yonathan Jimenez, PT 8 [place] [address] 06/07/2025 2:00 PM EDT Office Visit [facility] [address] [place] [address] Arden Andrea, DO [address] [place] [address] Yonathan Jimenez, PT 8 [place] [address] 06/09/2025 8:45 AM EDT Office Visit [facility] [address] [place] [address] Arden Andrea, DO [address] [place] [address] [email or web address] Yonathan Jimenez, PT 8 [place] [address] 06/14/2025 8:00 AM EDT Office Visit [facility] [address] [place] [address] Arden Andrea DO [address] [place] [address] Yonathan Jimenez, PT 8 [place] [address] 07/04/2025 12:30 PM EDT Appointment [facility] [address] [place] [address] Sofie Velazquez MD [address] [facility], 2nd [place] [address] Scheduled Referrals Name Type Priority Associated Diagnoses Order Schedule Ambulatory referral to External Neurosurgery Outpatient Referral Routine Ordered: 03/28/2025 Ambulatory referral to [facility] Physical Therapy Outpatient Referral Routine Ordered: 03/28/2025 documented as of this encounter Visit Diagnoses Diagnosis Spinal stenosis of lumbar region, unspecified whether neurogenic claudication present- Primary Lumbar foraminal stenosis Sensory neuropathy Unspecified hereditary and idiopathic peripheral neuropathy documented in this encounter Additional Health Concerns Assessment Noted Time PHQ-2 Depression Total Score: 1 05/11/19 25 8:14 AM EST documented as of this encounter Care Teams Automotive Buyer Relationship Specialty Start Date End Date Partha Burnett MD [address] [facility], [address] [place] [address] PCP - General Internal Medicine 07/11/21 Alycia Rolle MD [address] [facility], [address] [place] [address] Obstetrics and Gynecology 07/11/21 Partha Burnett MD [address] [place] [address], [address] [place] [address] [email or web address] Insurance Assigned Provider 07/05/23 documented as of this encounter Additional Source Comments The information contained in this document represents components of the legal health record. It is not the complete legal health record.[facility]
--- NOTE | 2025-03-29 13:03 | HO.SPINEOV ---
Vital Signs 03/29/25 13:08 Height 5 ft 6 in Weight 172 lb BMI 27.8 Intake Visit Reasons: LBP Intake Note: Ms. Dhaliwal is here today c/o low back pain. CT done at [facility]. School Cleaner Required: No Allergies Penicillins Allergy (Mild, Verified 03/29/25 13:05) Hives Physical Exam Vital Signs: BMI result Body Mass Index 27.8 Assessment & Plan Assessment & Plan (1) Bilateral leg numbness: Code(s): R20.0 - Anesthesia of skin Category: Medical Plan This is a very nice 74-year-old female who presents for evaluation of bilateral lower extremity numbness and tingling that started spontaneously on the night of 03/21/2025. She ended up in the emergency room that night for an evaluation in the lumbar CT showed lumbar stenosis and she was recommended to follow up with us. The symptoms remain the same as they were that night. She has not improvement or worsening. Her bowel and bladder function remain at baseline with no significant issues other than constipation. No saddle anesthesia. Her balance is slightly unsteady. She has a chronic back ache which she has had for many years, but no lower extremity pain or claudicating symptoms. The symptoms are present at all times and not necessarily aggravated with activity. She has had a component of right-sided thoracic spinal pain. PMH: She is reasonably healthy, she has history of hypothyroidism which is secondary to radiation treatments done for breast cancer. History of high cholesterol and hypertension which are very well managed with medications, mitral valve prolapse, right shoulder rotator cuff surgery, left shoulder rotator cuff surgery, lumpectomy and axillary excision of lymph nodes 1994 for breast cancer, ovary removal in 2003. Denies any history of systemic cardiopulmonary disease, liver or kidney disease, major abdominal surgery, bleeding disorders or blood clots. Social hx: She does not smoke, occasionally drinks alcohol, will occasionally use marijuana gummy to help with sleep Medications: Atenolol, losartan, fluoxetine, acyclovir, vitamin D3 and levothyroxine Allergies: Penicillin Physical exam: Awake alert oriented no acute distress, the patient is able to stand up independently and walk in the hallways, tandem gait testing revealed some slight unsteadiness, motor examination of the upper and lower extremity reveals some mild hand weakness (history of carpal and cubital tunnel syndrome), and some pain related weakness with hip flexion in the right iliopsoas but other than that strength is full. Reflexes are normal in the upper extremities and lower extremities. There is no Taylor's sign or clonus. Imaging review: There is a lumbar CT showing degenerative disc disease at L4-5 which is severe, spondylolisthesis L3-4. She has what looks like moderate stenosis at L4-5. There are significant limitations for good detail on the nervous structures in CT so the interpretation of these findings is done through the lens lacking good clarity. Impression: 74-year-old female presents with acute onset of numbness of bilateral lower extremities about a week ago that has not gone away. Her CT scan showed some degenerative and arthritic changes but nothing that would explain acute onset of bilateral lower extremity numbness. This is typically something more along the lines of spinal cord or peripheral nerve issues. I am going to get a thoracic MRI to rule out cord compression, or myelitis. Secondly I will get a lumbar MRI just to evaluate the lumbar stenosis a little more clearly. If these things do not give me a clear indication as to why she is having the numbness, she will likely need a neurology consultation and an EMG. Thank you for allowing us to care for your patient. The total time spent with this visit with this patient was 45 minutes reviewing history, physical exam, lumbar CT imaging review, and implementation of treatment plan or further diagnostic testing Isael Hill MD,PhD [facility] Orders: Orders MR lumbar spine wo con Today R20.0 - Anesthesia of skin MR thoracic spine wo con Today R20.0 - Anesthesia of skin Coding Level of Care Code New Pt Level 4 (85876) Diagnoses Bilateral leg numbness R20.0
[2025-03-29 13:08] VITALS: BMI 27.8
--- OUTSIDE RECORDS SUMMARY | 2025-03-29 16:51 | XMS_ITS | Encounter Summary ---
Author Organization [facility] Address [address] [place] [address] Phone Care Team Providers Care Underground Utility Locator Name Role Phone Torsten Weller MD Primary Care Provider [phone] Moira Griffin MD Primary Care Provider Partha Burnett MD Primary Care Provider [phone]- [phone] Alycia Rolle MD Unavailable [phone] Partha Burnett MD Unavailable [phone] Reason for Referral * Physical Therapy (Routine) - Closed Specialty Diagnoses / Procedures Referred By Dueyn hyde Referred To Contact Physical Therapy Diagnoses Encounter for rehabilitation Torsten Weller MD Phone: tel: fax: [email or web address] [facility] [address] [place] [address] Phone: tel: Referral ID Status Reason Start Date Expiration Date Visits Re quested Visits Authorized [id number] Closed 03/06/2018 03/06/2019 16 16 Encounter Details Date Type Department Care Team (Late st Contact Info) Description 03/06/2018 Transcribe Orders [facility] [address] [place] [address] Torsten Weller MD [address] [place] [address] Encounter for rehabilitation (Primary Dx) Social History [...] st Contact Info) Description 11/17/2024 Procedure Pass [address] [address] 04/21/2025 3:45 PM EST Office Visit [facility] [address] [place] [address] Partha Burnett MD [address] [place] [address], [address] [place] [address] 05/12/2025 1:15 PM EST Office Visit [facility] [address] [place] [address] Arden Andrea, DO [address] [place] [address] Yonathan Jimenez, PT 8 [place] [address] 05/19/2025 9:30 AM EST Office Visit [facility] [address] [place] [address] Arden Andrea, DO [address] [place] [address] Yonathan Jimenez, PT [address] [place] [address] 05/24/2025 9:30 AM EST Office Visit [facility] [address] [place] [address] Arden Andrea, DO [address] [place] [address] Yonathan Jimenez, PT [address] [place] [address] 05/31/2025 8:45 AM EST Office Visit [facility] [address] [place] [address] Arden Andrea, DO [address] [place] [address] Yonathan Jimenez, PT [address] [place] [address] 06/02/2025 8:45 AM EST Office Visit [facility] [address] [place] [address] Arden Andrea, DO [address] [place] [address] Yonathan Jimenez, PT [address] [place] [address] 06/07/2025 2:00 PM EDT Office Visit [facility] [address] [place] [address] Arden Andrea, DO [address] [place] [address] Yonathan Jimenez, PT [address] [place] [address] 06/09/2025 8:45 AM EDT Office Visit [facility] [address] [place] [address] Arden Andrea, DO [address] [place] [address] Tony Yesseniaroman, PT [address] [place] [address] 06/14/2025 8:00 AM EDT Office Visit [facility] [address] [place] [address] Arden Andrea, DO [address] [place] [address] [email or web address] Tony Danielzack, PT [address] [place] [address] 07/04/2025 12:30 PM EDT Appointment [address] [address] Sofie Velazquez MD [address] [facility], [address] [place] [address] Scheduled Referrals Name Type Priority Associated Diagnoses Orde r Schedule Ambulatory referral to [facility] Physical Therapy Outpatient Referral Routine Encounter for rehabilitation Ordered: 03/06/2018 documented as of this encounter Visit Diagnoses Diagnosis Encounter for rehabilitation- Primary documented in this encounter Additional Health Concerns Infection Onset Date Last Indicated Resolved Time CoV-Risk 07/23/2020 07/23/2020 2020 1:23 AM EDT COVID-19 12/29/2022 12/29/2022 01/19/2023 1:32 AM EDT documented as of this encounter Care Teams Underground Utility Locator Relationship Specialty Start Date End Date Torsten Weller MD PCP - General Family Medicine 04/21/17 03/05/21 Moira Griffin MD [email or web address] PCP - General Internal Medicine 03/06/21 07/10/21 Partha Burnett MD [address] [place] [address], [address] [place] [address] [email or web address] PCP - General Internal Medicine 07/11/21 Alycia Rolle MD [address] [place] [address], [address] [place] [address] [email or web address] Obstetrics and Gynecology 07/11/21 Partha Burnett MD [address] [place] [address], [address] [place] [address] [email or web address] Insurance Assigned Provider 07/05/23 documented as of this encounter Additional Source Comments The information contained in this document represents components of the legal health record. It is not the complete legal health record.[facility]
--- OUTSIDE RECORDS SUMMARY | 2025-03-29 16:51 | XMS_ITS | Encounter Summary ---
Author Organization [facility] Address [address] [place] [address] Phone Care Team Providers Care Bilingual Kindergarten Teacher Name Role Phone Torsten Weller MD Primary Care Provider [phone] Moira Griffin MD Primary Care Provider Partha Burnett MD Primary Care Provider + [phone] Alycia Rolle MD Unavailable [phone] Partha Burnett MD Unavailable [phone] Encounter Details Date Type Department Care Team (Late st Contact Info) Description 05/11/2020 Procedure Pass [facility] Admitting Dept Virtual Department [address] [place] [address] Social History Tobacco Use Types Packs/Day Years [...] 11/17/2024 Procedure Pass [facility] [address] [place] [address] 04/21/2025 3:45 PM EST Office Visit [facility] Primary Care [facility] 22 [place] [address] Partha Burnett MD 22 [facility], [address] [place] [address] 05/12/2025 1:15 PM EST Office Visit [facility] [address] [place] [address] Arden Andrea, [place] [address] Yonathan Jimenez, PT 8 [place] [address] 05/19/2025 9:30 AM EST Office Visit [facility] [address] [place] [address] Arden Andrea, DO [address] [place] [address] Yonathan Jimenez, PT 8 [place] [address] 05/24/2025 9:30 AM EST Office Visit [facility] [address] [place] [address] Arden Andrea, DO 22 [place] [address] [email or web address] Yonathan Jimenez, PT 8 [place] [address] 05/31/2025 8:45 AM EST Office Visit [facility] [address] [place] [address] Arden Andrea, DO 22 [place] [address] [email or web address] Yonathan Jimenez, PT 8 [place] [address] 06/02/2025 8:45 AM EST Office Visit [facility] [address] [place] [address] Arden Andrea, DO 22 [place] [address] Yonathan Jimenez, PT 8 [place] [address] 06/07/2025 2:00 PM EDT Office Visit [facility] [address] [place] [address] Arden Andrea, DO [address] [place] [address] Yonathan Jimenez, PT 8 [place] [address] 06/09/2025 8:45 AM EDT Office Visit [facility] [address] [place] [address] Arden Andrea, DO 22 [place] [address] Yonathan Jimenez, PT 8 [place] [address] 06/14/2025 8:00 AM EDT Office Visit [facility] [address] [place] [address] Arden Andrea, DO 22 [place] [address] Yonathan Jimenez, PT 8 [place] [address] 07/04/2025 12:30 PM EDT Appointment [facility], [facility] [address] [place] [address] Sofie Velazquez MD [address] [facility], 2nd [place] [address] documented as of this encounter Visit Diagnoses Not on filedocumented in this encounter Additional Health Concerns Infection Onset Date Last Indicated Resolved Time CoV-Risk 07/23/2020 07/23/2020 2020 1:23 AM EDT COVID-19 12/29/2022 12/29/2022 01/19/2023 1:32 AM EDT documented as of this encounter Care Teams Bilingual Kindergarten Teacher Relationship Specialty Start Date End Date Torsten Weller MD PCP - General Family Medicine 04/21/17 03/05/21 Moira Griffin MD PCP - General Internal Medicine 03/06/21 07/10/21 Partha Burnett MD [address] [place] [address], [address] [place] [address] PCP - General Internal Medicine 07/11/21 Alycia Rolle MD 22 [facility], [address] [place] [address] [email or web address] Obstetrics and Gynecology 07/11/21 Partha Burnett MD [address] [place] [address], [address] [place] [address] [email or web address] Insurance Assigned Provider 07/05/23 documented as of this encounter Additional Source Comments The information contained in this document represents components of the legal health record. It is not the complete legal health record.[facility]
--- OUTSIDE RECORDS SUMMARY | 2025-03-29 16:51 | XMS_ITS | Encounter Summary ---
Author Organization [facility] Address [address] [place] [address] Phone Care Team Providers Care Balloon Seller Name Role Phone Moira Griffin MD Primary Care Provider [phone] Partha Burnett MD Primary Care Provider + [phone] Alycia Rolle MD Unavailable [phone] Partha Burnett MD Unavailable [phone] Encounter Details Date Type Department Care Team (Late st Contact Info) Description 03/06/2021 Ancillary Orders [facility],[address] [address] System, Provider Not In, [place] [address] Social History Tobacco Use Types Packs/Day Years [...] st Contact Info) Description 11/17/2024 Procedure Pass [facility], [facility] 30 [place] [address] 04/21/2025 3:45 PM EST Office Visit [facility] Primary Care [facility] 22 [place] [address] Partha Burnett MD [address] [facility], [address] [place] [address] 05/12/2025 1:15 PM EST Office Visit [facility] [address] [place] [address] Arden Andrea, [place] [address] Yonathan Jimenez, PT 8 [place] [address] 05/19/2025 9:30 AM EST Office Visit [facility] [address] [place] [address] Arden Andrea, [place] [address] [email or web address] Yonathan Jimenez, PT 8 [place] [address] 05/24/2025 9:30 AM EST Office Visit [facility] [address] [place] [address] Arden Andrea, [place] [address] Yonathan Jimenez, PT 8 [place] [address] 05/31/2025 8:45 AM EST Office Visit [facility] [address] [place] [address] Arden Andrea, DO 22 [place] [address] Yonathan Jimenez, PT 8 [place] [address] 06/02/2025 8:45 AM EST Office Visit [facility] [address] [place] [address] Arden Anrdea, [place] [address] Yonathan Jimenez, PT 8 [place] [address] 06/07/2025 2:00 PM EDT Office Visit [facility] [address] [place] [address] Arden Andrea, [place] [address] Yonathan Jimenez, PT 8 [place] [address] 06/09/2025 8:45 AM EDT Office Visit [facility] [address] [place] [address] Arden Andrea, [place] [address] Yonathan Jimenez, PT 8 [place] [address] 06/14/2025 8:00 AM EDT Office Visit [facility] [address] [place] [address] Arden Andrea, [place] [address] Yonathan Jimenez, PT 8 [place] [address] 07/04/2025 12:30 PM EDT Appointment [facility], [facility] [address] [place] [address] Sofie Velazquez MD [address] [facility], 2nd [place] [address] documented as of this encounter Results * [...] documented as of this encounter Care Teams Balloon Seller Relationship Specialty Start Date End Date Moira Griffin MD PCP - General Internal Medicine 03/06/21 07/10/21 Partha Burnett MD [address] [facility], [address] [place] [address] PCP - General Internal Medicine 07/11/21 Alycia Rolle MD [address] [place] [address], [address] [place] [address] Obstetrics and Gynecology 07/11/21 Partha Burnett MD [address] [place] [address], [address] [place] [address] [email or web address] Insurance Assigned Provider 07/05/23 documented as of this encounter Additional Source Comments The information contained in this document represents components of the legal health record. It is not the complete legal health record.[facility]
--- OUTSIDE RECORDS SUMMARY | 2025-03-29 16:51 | XMS_ITS | Encounter Summary ---
Author Organization [facility] Address [address] [place] [address] [place] [address] Phone Care Team Providers Care Manager Of International Name Role Phone Partha Burnett MD Primary Care Provider [phone] Alycia Rolle MD Unavailable [phone] Partha Burnett MD Unavailable [phone] Encounter Details Date Type Department Care Team (Late st Contact Info) Description 12/26/2023 Telephone [facility] Clinic 22 [place], [place] [phone] Partha Burnett MD 22 [facility], [address] [place] [address] [email or web address] Social History Tobacco Use Types Packs/Day Years [...] 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 Not on file documented as of this encounter Plan of Treatment Upcoming Encounters Date Type Department Care Team (Late st Contact Info) Description 11/17/2024 Procedure Pass [facility] [address] [place] [address] 04/21/2025 3:45 PM EST Office Visit [facility] Clinic [address] [place] [address] Partha Burnett MD 22 [facility], [address] [place] [address] 05/12/2025 1:15 PM EST Office Visit [facility] [address] [place] [address] Arden Andrea, DO 22 [place] [address] Yonathan Jimenez, PT 8 [place] [address] 05/19/2025 9:30 AM EST Office Visit [facility] [address] [place] [address] Arden Andrea, DO 22 [place] [address] Yonathan Jimenez, PT 8 [place] [address] 05/24/2025 9:30 AM EST Office Visit [facility] [address] [place] [address] Arden Andrea, DO 22 [place] [address] Yonathan Jimenez, PT 8 [place] [address] 05/31/2025 8:45 AM EST Office Visit [facility] [address] [place] [address] Arden Andrea, DO 22 [place] [address] Yonathan Jimenez, PT 8 [place] [address] 06/02/2025 8:45 AM EST Office Visit [facility] [address] [place] [address] Arden Andrea, DO 22 [place] [address] Yonathan Jimenez, PT 8 [place] [address] 06/07/2025 2:00 PM EDT Office Visit [facility] [address] [place] [address] Arden Andrea, DO 22 [place] [address] [email or web address] Yonathan Jimenez, PT 8 [place] [address] 06/09/2025 8:45 AM EDT Office Visit [facility] [address] [place] [address] Arden Andrea, DO 22 [place] [address] Yonathan Jimenez, PT 8 [place] [address] 06/14/2025 8:00 AM EDT Office Visit [facility] [address] [place] [address] Arden Andrea, DO 22 [place] [address] Yonathan Jimenez, PT 8 [place] [address] 07/04/2025 12:30 PM EDT Appointment [facility] 30 [place] [address] Sofie Velazquez MD [address] [facility], 2nd [place] [address] documented as of this encounter Visit Diagnoses Not on filedocumented in this encounter Additional Health Concerns Assessment Noted Time PHQ-2 Depression Total Score: 0 02/28/20 22 12:56 PM EST documented as of this encounter Care Teams Manager Of International Relationship Specialty Start Date End Date Partha Burnett MD [address] [facility], [address] [place] [address] PCP - General Internal Medicine 07/11/21 Alycia Rolle MD [address] [facility], [address] [place] [address] [email or web address] Obstetrics and Gynecology 07/11/21 Partha Burnett MD [address] [facility], [address] [place] [address] Insurance Assigned Provider 07/05/23 documented as of this encounter Additional Source Comments The information contained in this document represents components of the legal health record. It is not the complete legal health record.[facility]
--- OUTSIDE RECORDS SUMMARY | 2025-03-29 16:51 | XMS_ITS | Encounter Summary ---
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 Not on file documented as of this encounter Plan of Treatment Upcoming Encounters Date Type Department Care Team (Late st Contact Info) Description 11/17/2024 Procedure Pass [facility], [address] [address] 04/21/2025 3:45 PM EST Office Visit [facility] Primary Care [facility] 22 [place] [address] Partha Burnett MD [address] [facility], [address] [place] [address] 05/12/2025 1:15 PM EST Office Visit [facility] [address] [place] [address] Arden Andrea, DO 22 [place] [address] Yonathan Jimenez, PT 8 [place] [address] 05/19/2025 9:30 AM EST Office Visit [facility] [address] [place] [address] Arden Andrea, [place] [address] Yonathan Jimenez, PT 8 [place] [address] 05/24/2025 9:30 AM EST Office Visit [facility] [address] [place] [address] Arden Andrea, DO 22 [place] [address] Yonathan Jimenez, PT 8 [place] [address] 05/31/2025 8:45 AM EST Office Visit [facility] [address] [place] [address] Arden Andrea, [place] [address] Tony Yesseniaroman, PT 8 [place] [address] 06/02/2025 8:45 AM EST Office Visit [facility] 8 [place] [address] Arden Andrea, DO 22 [place] [address] [email or web address] Yonathan Jimenez, PT 8 [place] [address] 06/07/2025 2:00 PM EDT Office Visit [facility] 8 [place] [address] Arden Andrea, DO 22 [place] [address] Yonathan Jimenez, PT 8 [place] [address] 06/09/2025 8:45 AM EDT Office Visit [facility] [address] [place] [address] Arden Andrea, DO 22 [place] [address] [email or web address] Yonathan Jimenez, PT 8 [place] [address] 06/14/2025 8:00 AM EDT Office Visit [facility] 8 [place] [address] Arden Andrea, DO 22 [place] [address] Yonathan Jimenez, PT 8 [place] [address] 07/04/2025 12:30 PM EDT Appointment [facility], [facility] 30 [place] [address] Sofie Velazquez MD [address] [facility], 2nd [place] [address] documented as of this encounter Visit Diagnoses Not on filedocumented in this encounter Additional Health Concerns Assessment Noted Time PHQ-2 Depression Total Score: 1 05/11/19 25 8:14 AM EST documented as of this encounter Care Teams Gypsum Roofer Relationship Specialty Start Date End Date Partha Burnett MD [address] [facility], [address] [place] [address] PCP - General Internal Medicine 07/11/21 Alycia Rolle MD [address] [facility], [address] [place] [address] Obstetrics and Gynecology 07/11/21 Partha Burnett MD [address] [place] [address], [address] [place] [address] Insurance Assigned Provider 07/05/23 documented as of this encounter Additional Source Comments The information contained in this document represents components of the legal health record. It is not the complete legal health record.[facility]
--- OUTSIDE RECORDS SUMMARY | 2025-03-29 16:51 | XMS_ITS | Encounter Summary ---
Author Organization [facility] Address [address] [place] [address] Phone Care Team Providers Care Environmental Control Administrator Name Role Phone Torsten Weller MD Primary Care Provider [phone] Moira Griffin MD Primary Care Provider [phone] Partha Burnett MD Primary Care Provider + [phone] Alycia Rolle MD Unavailable [phone] Partha Burnett MD Unavailable [phone] Encounter Details Date Type Department Care Team (Late st Contact Info) Description 01/04/[address] [address] Social History Tobacco Use Types Packs/Day Years [...] (Late st Contact Info) Description 11/17/[address] [address] 04/21/2025 3:45 PM EST Office Visit [facility] Primary Care [facility] 22 [place] [address] Partha Burnett MD 22 [facility], [address] [place] [address] 05/12/2025 1:15 PM EST Office Visit [facility] [address] [place] [address] Arden Andrea, [place] [address] Yonathan Jimenez, PT 8 [place] [address] 05/19/2025 9:30 AM EST Office Visit [facility] [address] [place] [address] Arden Andrea, [place] [address] Yonathan Jimenez, PT 8 [place] [address] 05/24/2025 9:30 AM EST Office Visit [facility] [address] [place] [address] Arden Andrea, DO 22 [place] [address] Yonathan Jimenez, PT 8 [place] [address] 05/31/2025 8:45 AM EST Office Visit [facility] [address] [place] [address] Arden Andrea, DO 22 [place] [address] Yonathan Jimenez, PT 8 [place] [address] 06/02/2025 8:45 AM EST Office Visit [facility] [address] [place] [address] Arden Andrea, DO 22 [place] [address] Yonathan Jimenez, PT 8 [place] [address] 06/07/2025 2:00 PM EDT Office Visit [facility] [address] [place] [address] Arden Andrea, DO [address] [place] [email or web address] Yonathan Jimenez, PT 8 [place] [address] 06/09/2025 8:45 AM EDT Office Visit [facility] [address] [place] [address] Arden Andrea, DO 22 [place] [address] Yonathan Jimenez, PT 8 [place] [address] 06/14/2025 8:00 AM EDT Office Visit [facility] [address] [place] [address] Arden Andrea, DO 22 [place] [address] Yonathan Jimenez, PT 8 [place] [address] 07/04/2025 12:30 PM EDT Appointment [facility] 30 [place] [address] Sofie Velazquez MD 15 [facility], 2nd [place] [address] documented as of this encounter Visit Diagnoses Not on filedocumented in this encounter Additional Health Concerns Infection Onset Date Last Indicated Resolved Time COVID-19 12/29/2022 12/29/2022 01/19/2023 1:32 AM EDT documented as of this encounter Care Teams Environmental Control Administrator Relationship Specialty Start Date End Date Torsten Weller MD PCP - General Family Medicine 04/21/17 03/05/21 Moira Griffin MD PCP - General Internal Medicine 03/06/21 07/10/21 Partha Burnett MD [address] [place] [address], [address] [place] [address] PCP - General Internal Medicine 07/11/21 Alycia Rolle MD [address] [place] [address], [address] [place] [address] Obstetrics and Gynecology 07/11/21 Partha Burnett MD [address] [place] [address], [address] [place] [address] [email or web address] Insurance Assigned Provider 07/05/23 documented as of this encounter Additional Source Comments The information contained in this document represents components of the legal health record. It is not the complete legal health record.[facility]
--- OUTSIDE RECORDS SUMMARY | 2025-03-29 16:51 | XMS_ITS | Encounter Summary ---
Author Organization [facility] Address [address] [place] [address] Phone Care Team Providers Care Mail Handler Assistant Name Role Phone Torsten Weller MD Primary Care Provider Moira Griffin MD Primary Care Provider Partha Burnett MD Primary Care Provider [phone] Alycia Rolle MD Unavailable Partha Burnett MD Unavailable [phone] Encounter Details Date Type Department Care Team (Latest Contact Info) Description 01/04/2021 Transcribe Orders Virtual Department 30 [place] [address] Moira Griffin MD [address] [place] [phone] [email or web address] Breast screening (Primary Dx) Social History [...] st Contact Info) Description 11/17/2024 Procedure Pass [facility] [address] [place] [address] 04/21/2025 3:45 PM EST Office Visit [facility] Primary Care [facility] 22 [place] [address] Partha Burnett MD 22 [facility], [address] [place] [address] 05/12/2025 1:15 PM EST Office Visit [facility] [address] [place] [address] Arden Andrea, DO 22 [place] [address] [email or web address] Yonathan Jimenez, PT 8 [place] [address] [email or web address] 05/19/2025 9:30 AM EST Office Visit [facility] [address] [place] [address] Arden Andrea, DO 22 [place] [address] Yonathan Jimenez, PT 8 [place] [address] 05/24/2025 9:30 AM EST Office Visit [facility] [address] [place] [address] Arden Andrea, DO 22 [place] [address] [email or web address] Yonathan Jimenez, PT 8 [place] [address] 05/31/2025 8:45 AM EST Office Visit [facility] [address] [place] [address] Arden Andrea, DO [address] [place] [address] Yonathan Jimenez, PT 8 [place] [address] 06/02/2025 8:45 AM EST Office Visit [facility] [address] [place] [address] Arden Andrea, DO [address] [place] [address] Yonathan Jimenez, PT 8 [place] [address] 06/07/2025 2:00 PM EDT Office Visit [facility] [address] [place] [address] Arden Andrea, DO [address] [place] [address] Yonathan Jimenez, PT 8 [place] [address] 06/09/2025 8:45 AM EDT Office Visit [facility] [address] [place] [address] Arden Andrea, DO [address] [place] [address] Yonathan Jimenez, PT 8 [place] [address] 06/14/2025 8:00 AM EDT Office Visit [facility] 8 [place] [address] Arden Andrea, DO 22 [place] [address] [email or web address] Yonathan Jimenez, PT 8 [place] [address] [email or web address] 07/04/2025 12:30 PM EDT Appointment [facility], [facility] [address] [place] [address] Sofie Velazquez MD 15 [facility], 2nd [place] [address] [email or web address] documented as of this encounter Results * [...] documented as of this encounter Care Teams Mail Handler Assistant Relationship Specialty Start Date End Date Torsten Weller MD PCP - General Family Medicine 04/21/17 03/05/21 Moira Griffin MD PCP - General Internal Medicine 03/06/21 07/10/21 Partha Burnett MD [address] [place] [address], [address] [place] [address] PCP - General Internal Medicine 07/11/21 Alycia Rolle MD [address] [place] [address], [address] [place] [address] [email or web address] Obstetrics and Gynecology 07/11/21 Partha Burnett MD [address] [place] [address], [address] [place] [address] [email or web address] Insurance Assigned Provider 07/05/23 documented as of this encounter Additional Source Comments The information contained in this document represents components of the legal health record. It is not the complete legal health record.[facility]
--- OUTSIDE RECORDS SUMMARY | 2025-03-29 16:52 | XMS_ITS | Encounter Summary ---
Author Organization [facility] Address [address] [place] [address] Phone Care Team Providers Care Benefits Director Name Role Phone Torsten Weller MD Primary Care Provider Moira Griffin MD Primary Care Provider Partha Burnett MD Primary Care Provider + [phone] Alycia Rolle MD Unavailable [phone] Partha Burnett MD Unavailable [phone] Encounter Details Date Type Department Care Team (Late st Contact Info) Description 10/23/2017 Procedure Pass [facility], [address] [address] Social History Tobacco Use Types Packs/Day Years [...] st Contact Info) Description 11/17/2024 Procedure Pass [facility] [address] [place] [address] 04/21/2025 3:45 PM EST Office Visit [facility] Primary Care [facility] [address] [place] [address] Partha Burnett MD 22 [facility], [address] [place] [address] 05/12/2025 1:15 PM EST Office Visit [facility] [address] [place] [address] Arden Andrea, DO [address] [place] [email or web address] Yonathan Jimenez, PT 8 [place] [address] 05/19/2025 9:30 AM EST Office Visit [facility] [address] [place] [address] Arden Andrea, DO [address] [place] [address] Yonathan Jimenez, PT 8 [place] [address] 05/24/2025 9:30 AM EST Office Visit [facility] [address] [place] [address] Arden Andrea, DO 22 [place] [address] Yonathan Jimenez, PT 8 [place] [address] 05/31/2025 8:45 AM EST Office Visit [facility] [address] [place] [address] Arden Andrea, DO [address] [place] [email or web address] Yonathan Jimenez, PT 8 [place] [address] 06/02/2025 8:45 AM EST Office Visit [facility] [address] [place] [address] Arden Andrea, DO [address] [place] [address] Yonathan Jimenez, PT 8 [place] [address] 06/07/2025 2:00 PM EDT Office Visit [facility] [address] [place] [address] Arden Andrea, DO [address] [place] [address] Yonathan Jimenez, PT 8 [place] [address] 06/09/2025 8:45 AM EDT Office Visit [facility] [address] [place] [address] Arden Andrea, DO [address] [place] [address] Yonathan Jimenez, PT 8 [place] [address] 06/14/2025 8:00 AM EDT Office Visit [facility] 8 [place] [address] Arden Andrea DO 22 [place] [address] Tony Danielzack, PT 8 [place] [address] 07/04/2025 12:30 PM EDT Appointment [facility] 30 [place] [address] Sofie Velazquez MD 15 [facility], 2nd [place] [address] documented as of this encounter Visit Diagnoses Not on filedocumented in this encounter Additional Health Concerns Infection Onset Date Last Indicated Resolved Time CoV-Risk 07/23/2020 07/23/2020 2020 1:23 AM EDT COVID-19 12/29/2022 12/29/2022 01/19/2023 1:32 AM EDT documented as of this encounter Care Teams Benefits Director Relationship Specialty Start Date End Date Torsten Weller MD PCP - General Family Medicine 04/21/17 03/05/21 Moira Griffin MD PCP - General Internal Medicine 03/06/21 07/10/21 Partha Burnett MD 22 [facility], [address] [place] [address] PCP - General Internal Medicine 07/11/21 Alycia Rolle MD [address] [place] [address], [address] [place] [address] [email or web address] Obstetrics and Gynecology 07/11/21 Partha Burnett MD [address] [place] [address], [address] [place] [address] [email or web address] Insurance Assigned Provider 07/05/23 documented as of this encounter Additional Source Comments The information contained in this document represents components of the legal health record. It is not the complete legal health record.[facility]
--- OUTSIDE RECORDS SUMMARY | 2025-03-29 16:52 | XMS_ITS | Encounter Summary ---
Author Organization [facility] Address [address] [place] [address] Phone Care Team Providers Care Finisher Denture Name Role Phone Torsten Weller MD Primary Care Provider Moira Griffin MD Primary Care Provider Partha Burnett MD Primary Care Provider +- [phone] Alycia Rolle MD Unavailable [phone] Partha Burnett MD Unavailable [phone] Reason for Referral * Physical Therapy (Elective) - Closed Specialty Diagnoses / Procedures Referred By Duyen hyde Referred To Contact Physical Therapy Diagnoses Encounter for rehabilitation Right Shoulder Procedures Evaluate & Treat Abran Velez MD Phone: tel: [address] [address] Phone: tel: Referral ID Status Reason Start Date Expiration Date Visits Re quested Visits Authorized [id number] Closed 01/12/2018 03/30/2018 18 18 Encounter Details Date Type Department Care Team (Latest Contact Info) Description 01/12/2018 Transcribe Orders [facility] [address] [place] [address] Abran Velez MD [address] [place] [address] Encounter for rehabilitation (Primary Dx) Social History [...] st Contact Info) Description 11/17/2024 Procedure Pass [facility] [place] [address] [place] [address] 04/21/2025 3:45 PM EST Office Visit [facility] Clinic [address] [place] [address] Partha Burnett MD 22 [facility], [address] [place] [address] 05/12/2025 1:15 PM EST Office Visit [facility] [address] [place] [address] Arden Andrea, DO 22 [place] [address] Yonathan Jimenez, PT 8 [place] [address] 05/19/2025 9:30 AM EST Office Visit [facility] [address] [place] [address] Arden Andrea, DO 22 [place] [address] [email or web address] Yonathan Jimenez, PT 8 [place] [address] 05/24/2025 9:30 AM EST Office Visit [facility] [address] [place] [address] Arden Andrea, DO 22 [place] [address] Yonathan Jimenez, PT 8 [place] [address] 05/31/2025 8:45 AM EST Office Visit [facility] [address] [place] [address] Arden Andrea, [place] [address] Yonathan Jimenez, PT 8 [place] [address] 06/02/2025 8:45 AM EST Office Visit [facility] [address] [place] [address] Arden Andrea, DO 22 [place] [address] Yonathan Jimenez, PT 8 [place] [address] 06/07/2025 2:00 PM EDT Office Visit [facility] [address] [place] [address] Arden Andrea, DO 22 [place] [address] Yonathan Jimenez, PT 8 [place] [address] 06/09/2025 8:45 AM EDT Office Visit [facility] [address] [place] [address] Arden Andrea, DO 22 [place] [address] Yonathan Jimenez, PT 8 [place] [address] 06/14/2025 8:00 AM EDT Office Visit [facility] 8 [place] [address] Arden Andrea, DO 22 [place] [address] Yonathan Jimenez, PT 8 [place] [address] 07/04/2025 12:30 PM EDT Appointment [address] [address] Sofie Velazquez MD 15 [facility], 2nd [place] [address] [email or web address] documented as of this encounter Procedures Procedure Name Priority Date/Time Associated Diagnosis Comments AMB REFERRAL TO [facility] PHYSICAL THERAPY Routine 01/26/2018 11:07 PM EDT Encounter for rehabilitation documented in this encounter Results * Ambulatory referral to [facility] Physical Therapy (01/26/2018 11:07 PM EDT) Abran Velez MD AMB [facility] REFERRALS Final Result documented in this encounter Visit Diagnoses Diagnosis Encounter for rehabilitation- Primary documented in this encounter Additional Health Concerns Infection Onset Date Last Indicated Resolved Time CoV-Risk 07/23/2020 07/23/2020 2020 1:23 AM EDT COVID-19 12/29/2022 12/29/2022 01/19/2023 1:32 AM EDT documented as of this encounter Care Teams Finisher Denture Relationship Specialty Start Date End Date Torsten Weller MD PCP - General Family Medicine 04/21/17 03/05/21 Moira Griffin MD PCP - General Internal Medicine 03/06/21 07/10/21 Partha Burnett MD [address] [place] [address], [address] [place] [address] PCP - General Internal Medicine 07/11/21 Alycia Rolle MD [address] [place] [address], [address] [place] [address] Obstetrics and Gynecology 07/11/21 Partha Burnett MD [address] [place] [address], [address] [place] [address] [email or web address] Insurance Assigned Provider 07/05/23 documented as of this encounter Additional Source Comments The information contained in this document represents components of the legal health record. It is not the complete legal health record.[facility]
--- OUTSIDE RECORDS SUMMARY | 2025-03-29 16:52 | XMS_ITS | Encounter Summary ---
Author Organization [facility] Address [address] [place] [address] Phone Care Team Providers Care School Bus Inspector Name Role Phone Torsten Weller MD Primary Care Provider Moira Griffin MD Primary Care Provider Partha Burnett MD Primary Care Provider Alycia Rolle MD Unavailable Partha Burnett MD Unavailable [phone] Encounter Details Date Type Department Care Team (Late st Contact Info) Description 04/27/2018 Documentation [facility] [address] [place] [address] Anna Ramos, PT [address] [place], [place] [id number] [email or web address] Social History Tobacco Use Types Packs/Day Years [...] st Contact Info) Description 11/17/2024 Procedure Pass [facility], [address] [id number] 04/21/2025 3:45 PM EST Office Visit [facility] Primary Care [facility] 22 [place] [address] Partha Burnett MD 22 [facility], [address] [place] [address] 05/12/2025 1:15 PM EST Office Visit [facility] [address] [place] [address] Arden Andrea, [place] [address] Yonathan Jimenez, PT 8 [place] [address] 05/19/2025 9:30 AM EST Office Visit [facility] [address] [place] [address] Arden Andrea, [place] [address] [email or web address] Yonathan Jimenez, PT 8 [place] [address] 05/24/2025 9:30 AM EST Office Visit [facility] [address] [place] [address] Arden Andrea, [place] [address] Yonathan Jimenez, PT 8 [place] [address] 05/31/2025 8:45 AM EST Office Visit [facility] [address] [place] [address] Arden Andrea, DO 22 [place] [address] Yonathan Jimenez, PT 8 [place] [address] 06/02/2025 8:45 AM EST Office Visit [facility] [address] [place] [address] Arden Andrea, DO 22 [place] [address] Yonathan Jimenez, PT 8 [place] [address] 06/07/2025 2:00 PM EDT Office Visit [facility] [address] [place] [address] Arden Andrea, DO 22 [place] [address] [email or web address] Yonathan Jimenez, PT 8 [place] [address] 06/09/2025 8:45 AM EDT Office Visit [facility] [address] [place] [address] Arden Andrea, DO 22 [place] [address] Yonathan Jimenez, PT 8 [place] [address] 06/14/2025 8:00 AM EDT Office Visit [facility] [address] [place] [address] Arden Andrea, DO 22 [place] [address] [email or web address] Yonathan Jimenez, PT 8 [place] [address] 07/04/2025 12:30 PM EDT Appointment [facility] [address] [place] [address] Sofie Velazquez MD 15 [facility], 2nd [place] [address] documented as of this encounter Visit Diagnoses Not on filedocumented in this encounter Additional Health Concerns Infection Onset Date Last Indicated Resolved Time CoV-Risk 07/23/2020 07/23/2020 2020 1:23 AM EDT COVID-19 12/29/2022 12/29/2022 01/19/2023 1:32 AM EDT documented as of this encounter Care Teams School Bus Inspector Relationship Specialty Start Date End Date Torsten Weller MD PCP - General Family Medicine 04/21/17 03/05/21 Moira Griffin MD PCP - General Internal Medicine 03/06/21 07/10/21 Partha Burnett MD [address] [place] [address], [address] [place] [address] PCP - General Internal Medicine 07/11/21 Alycia Rolle MD [address] [place] [address], [address] [place] [address] Obstetrics and Gynecology 07/11/21 Partha Burnett MD [address] [place] [address], [address] [place] [address] [email or web address] Insurance Assigned Provider 07/05/23 documented as of this encounter Additional Source Comments The information contained in this document represents components of the legal health record. It is not the complete legal health record.[facility]
--- OUTSIDE RECORDS SUMMARY | 2025-03-29 16:52 | XMS_ITS | Encounter Summary ---
Author Organization [facility] Address [address] [place] [address] Phone Care Team Providers Care Business Systems Manager Name Role Phone Torsten Weller MD Primary Care Provider Moira Griffin MD Primary Care Provider Partha Burnett MD Primary Care Provider [phone] Alycia Rolle MD Unavailable [phone] Partha Burnett MD Unavailable [phone] Reason for Referral * MRI/CAT Scan - Closed Specialty Diagnoses / Procedures Referred By Duyen hyde Referred To Contact Radiology Diagnoses Right shoulder pain, unspecified chronicity Procedures MRI Shoulder (Right) Beck Brown MD Phone: tel: fax: [email or web address] Referral ID Status Reason Start Date Expiration Date Visits Re quested Visits Authorized [id number] Closed 10/23/2017 10/23/2018 1 1 Encounter Details Date Type Department Care Team (Late st Contact Info) Description 10/23/2017 Ancillary Orders Virtual Department 30 [place] [address] Beck Brown MD [address] [place] [address] Right shoulder pain, unspecified chronicity Social History [...] st Contact Info) Description 11/17/2024 Procedure Pass [facility] 30 [place] [address] 04/21/2025 3:45 PM EST Office Visit [facility] Primary Care [facility] [address] [place] [address] Partha Burnett MD 22 [facility], 201 [place] [address] 05/12/2025 1:15 PM EST Office Visit [facility] Physical Therapy Clinic [address] [place] [address] Arden Andrea, DO 22 [place] [address] Yonathan Jimenez, PT 8 [place] [address] 05/19/2025 9:30 AM EST Office Visit [facility] Physical Therapy [facility] [address] [place] [address] Arden Andrea, DO [address] [place] [address] Yonathan Jimenez, PT 8 [place] [address] 05/24/2025 9:30 AM EST Office Visit [facility] Therapy [facility] [address] [place] [address] Arden Andrea, DO 22 [place] [address] Yonathan Jimenez, PT 8 [place] [address] 05/31/2025 8:45 AM EST Office Visit [facility] Physical Therapy [facility] [address] [place] [address] Arden Andrea, DO [address] [place] [email or web address] Yonathan Jimenez, PT 8 [place] [address] 06/02/2025 8:45 AM EST Office Visit [facility] Physical Therapy [facility] [address] [place] [address] Arden Andrea, DO [address] [place] [address] Yonathan Jimenez, PT 8 [place] [address] 06/07/2025 2:00 PM EDT Office Visit [facility] [address] [place] [address] Arden Andrea, DO 22 [place] [address] Yonathan Jimenez, PT 8 [place] [address] 06/09/2025 8:45 AM EDT Office Visit [facility] Physical Therapy [facility] [address] [place] [address] Arden Andrea, DO 22 [place] [address] [email or web address] Yonathan Jimenez, PT 8 [place] [address] [email or web address] 06/14/2025 8:00 AM EDT Office Visit [facility] Therapy [facility] 8 [place] [address] Arden Andrea, DO 22 [place] [address] [email or web address] Yonathan Jimenez, PT 8 [place] [address] [email or web address] 07/04/2025 12:30 PM EDT Appointment [facility] [address] [place] [address] Sofie Velazquez MD 15 [facility], 2nd [place] [address] [email or web address] documented as of this encounter Results * [...] associated joint and bursal effusions. POS - [id number] Edited by: Rosalina Carlos on 10/30/2017 7:10 [...] Large associated joint andbursal effusions. POS - [id number] Edited by: Rosalina Carlos on 10/30/2017 7:10 [...] documented as of this encounter Care Teams Business Systems Manager Relationship Specialty Start Date End Date Torsten Weller MD [email or web address] PCP - General Family Medicine 04/21/17 03/05/21 Moira Griffin MD [email or web address] PCP - General Internal Medicine 03/06/21 07/10/21 Partha Burnett MD [address] [place] [address], [address] [place] [address] [email or web address] PCP - General Internal Medicine 07/11/21 Alycia Rolle MD [address] [place] [address], [address] [place] [address] [email or web address] Obstetrics and Gynecology 07/11/21 Partha Burnett MD [address] [place] [address], [address] [place] [address] (work) [email or web address] Insurance Assigned Provider 07/05/23 documented as of this encounter Additional Source Comments The information contained in this document represents components of the legal health record. It is not the complete legal health record.[facility]
--- OUTSIDE RECORDS SUMMARY | 2025-03-29 16:54 | XMS_ITS | Encounter Summary ---
Author Organization [facility] Address [address] [place] [address] Phone Care Team Providers Care Borderer Name Role Phone Moira Griffin MD Primary Care Provider [phone] Partha Burnett MD Primary Care Provider +- [phone] Alycia Rolle MD Unavailable [phone] Partha Burnett MD Unavailable [phone] Reason for Referral * MRI/CAT Scan - Closed Specialty Diagnoses / Procedures Referred By Duyen t Referred To Contact Radiology Diagnoses Tinnitus, unspecified laterality Procedures MRI Angio Brain Moira Griffin MD Phone: tel: fax: [email or web address] Referral ID Status Reason Start Date Expiration Date Visits Re quested Visits Authorized [id number] Closed 06/21/2021 06/21/2022 1 1 Encounter Details Date Type Department Care Team (Latest Contact Info) Description 06/21/2021 Transcribe Orders Virtual Department 30 [place] [address] Moira Griffin MD [address] [place] [address] [email or web address] Tinnitus, unspecified laterality (Primary Dx) Social [...] st Contact Info) Description 11/17/2024 Procedure Pass [facility] [address] [place] [address] 04/21/2025 3:45 PM EST Office Visit [facility] Primary Care [facility] [address] [place] [address] Partha Burnett MD [address] [place] [address], [address] [place] [address] 05/12/2025 1:15 PM EST Office Visit [facility] [address] [place] [address] Arden Andrea, DO [address] [place] [address] Yonathna Jimenez, PT 8 [place] [address] 05/19/2025 9:30 AM EST Office Visit [facility] [address] [place] [address] Arden Andrea, [address] [place] [address] Yonathan Jimenez PT 8 [place] [address] 05/24/2025 9:30 AM EST Office Visit [facility] [address] [place] [address] Arden Andrea, DO 22 [place] [address] Yonathan Jimenez, PT 8 [place] [address] 05/31/2025 8:45 AM EST Office Visit [facility] [address] [place] [address] Arden Andrea, DO [address] [place] [address] Yonathan Jimenez, PT 8 [place] [address] 06/02/2025 8:45 AM EST Office Visit [facility] [address] [place] [address] Arden Andrea, DO [address] [place] [address] Yonathan Jimenez, PT 8 [place] [address] 06/07/2025 2:00 PM EDT Office Visit [facility] [address] [place] [address] Arden Andrea, DO [address] [place] [address] Yonathan Jimenez, PT 8 [place] [address] 06/09/2025 8:45 AM EDT Office Visit [facility] [address] [place] [address] Arden Andrea, DO 22 [place] [address] [email or web address] Yonathan Jimenez, PT 8 [place] [address] [email or web address] 06/14/2025 8:00 AM EDT Office Visit [facility] [address] [place] [address] Arden Andrea, DO 22 [place] [address] [email or web address] Yonathan Jimenez, PT 8 [place] [address] [email or web address] 07/04/2025 12:30 PM EDT Appointment [address] [address] Sofie Velazquez MD 15 [facility], 2nd [place] [address] [email or web address] documented as of this encounter Results * MRA HEAD WITHOUT CONTRAST (06/22/2021 2:39 PM EDT) Anatomical Region Laterality Modality Head Magnetic Resonan ce 06/22/2021 2:57 PM EDT Impressions 06/22/2021 3:06 PM EDT No aneurysm. Narrative 06/22/2021 3:06 PM EDT COMPARISON: None. TECHNIQUE: Exam performed on 1.5 Anusha high-field MRI scanner. Axial 3-D [id number] MR angiogram. Source raw data and angiographic MIP images are available for review. MRA HEAD FINDINGS: Anterior circulation: Normal. Posterior circulation: Procedure Note Partha Rader MD - 06/22/2021 COMPARISON: None. TECHNIQUE: Exam performed on 1.5 Anusha high-field MRI scanner. Axial 6-[id number] MR angiogram. Source raw data and angiographic [...] documented as of this encounter Care Teams Borderer Relationship Specialty Start Date End Date Moira Griffin MD PCP - General Internal Medicine 03/06/21 07/10/21 Partha Burnett MD [address] [place] [address], [address] [place] [address] PCP - General Internal Medicine 07/11/21 Alycia Rolle MD [address] [place] [address], [address] [place] [address] Obstetrics and Gynecology 07/11/21 Partha Burnett MD [address] [place] [address], [address] [place] [address] Insurance Assigned Provider 07/05/23 documented as of this encounter Additional Source Comments The information contained in this document represents components of the legal health record. It is not the complete legal health record.[facility]
--- OUTSIDE RECORDS SUMMARY | 2025-03-29 16:55 | XMS_ITS | Encounter Summary ---
Author Organization [facility] Address [address] [place] [address] Phone Care Team Providers Care Body Corporate Manager Name Role Phone Torsten Weller MD Primary Care Provider [phone] Moira Griffin MD Primary Care Provider Partha Burnett MD Primary Care Provider [phone]- [phone] Alycia Rolle MD Unavailable [phone] Partha Burnett MD Unavailable [phone] Reason for Referral * Physical Therapy (Elective) - Closed Specialty Diagnoses / Procedures Referred By Duyen hyde Referred To Contact Physical Therapy Diagnoses Encounter for rehabilitation Right Hip Pain Procedures Evaluate & Treat Torsten Weller MD Phone: tel: fax: [email or web address] [address] [address] Phone: tel: Referral ID Status Reason Start Date Expiration Date Visits Re quested Visits Authorized [id number] Closed 11/27/2018 03/30/2019 15 15 Encounter Details Date Type Department Care Team (Late st Contact Info) Description 11/23/2018 Transcribe Orders [facility] Physical Therapy [facility] [address] [place] [address] Torsten Weller MD [address] [place] [address] Encounter for rehabilitation (Primary Dx) Social History [...] st Contact Info) Description 11/17/2024 Procedure Pass [facility] [address] [place] [address] 04/21/2025 3:45 PM EST Office Visit [facility] [address] [place] [address] Partha Burnett MD [address] [place] [address], [address] [place] [address] 05/12/2025 1:15 PM EST Office Visit [facility] Therapy [facility] [address] [place] [address] Arden Andrea, DO [address] [place] [address] Yonathan Jimenez, PT 8 [place] [address] 05/19/2025 9:30 AM EST Office Visit [facility] [address] [place] [address] Arden Andrea, DO [address] [place] [address] Yonathan Jimenez, PT 8 [place] [address] 05/24/2025 9:30 AM EST Office Visit [facility] [address] [place] [address] Arden Andrea, DO [address] [place] [address] Yonathan Jimenez, PT 8 [place] [address] 05/31/2025 8:45 AM EST Office Visit [facility] [address] [place] [address] Arden Andrea, DO [address] [place] [address] Yonathan Jimenez, PT 8 [place] [address] 06/02/2025 8:45 AM EST Office Visit [facility] [address] [place] [address] Arden Andrea, DO [address] [place] [address] [email or web address] Yonathan Jimenez, PT 8 [place] [address] 06/07/2025 2:00 PM EDT Office Visit [facility] [address] [place] [address] Arden Andrea, DO [address] [place] [address] Yonathan Jimenez, PT [address] [place] [address] 06/09/2025 8:45 AM EDT Office Visit [facility] [address] [place] [address] Arden Andrea, DO [address] [place] [address] Yonathan Jimenez, PT 8 [place] [address] 06/14/2025 8:00 AM EDT Office Visit [facility] [address] [place] [address] Arden Andrea, DO [address] [place] [address] [email or web address] Yonathan Jimenez, PT 8 [place] [address] 07/04/2025 12:30 PM EDT Appointment [address] [address] Sofie Velazquez MD [address] [facility], 2nd [place] [address] [email or web address] documented as of this encounter Procedures Procedure Name Priority Date/Time Associated Diagnosis Comments AMB REFERRAL TO [facility] PHYSICAL THERAPY Routine 11/27/2018 11:21 PM EDT Encounter for rehabilitation documented in this encounter Results * Ambulatory referral to [facility] Physical Therapy (11/27/2018 11:21 PM EDT) us Torsten Weller MD AMB [facility] REFERRALS Final Res ult documented in this encounter Visit Diagnoses Diagnosis Encounter for rehabilitation- Primary documented in this encounter Additional Health Concerns Infection Onset Date Last Indicated Resolved Time CoV-Risk 07/23/2020 07/23/2020 2020 1:23 AM EDT COVID-19 12/29/2022 12/29/2022 01/19/2023 1:32 AM EDT documented as of this encounter Care Teams Body Corporate Manager Relationship Specialty Start Date End Date Torsten Weller MD [email or web address] PCP - General Family Medicine 04/21/17 03/05/21 Moira Griffin MD [email or web address] PCP - General Internal Medicine 03/06/21 07/10/21 Partha Burnett MD [address] [place] [address], [address] [place] [address] [email or web address] PCP - General Internal Medicine 07/11/21 Alycia Rolle MD [address] [place] [address], [address] [place] [address] [email or web address] Obstetrics and Gynecology 07/11/21 Partha Burnett MD [address] [place] [address], [address] [place] [address] [email or web address] Insurance Assigned Provider 07/05/23 documented as of this encounter Additional Source Comments The information contained in this document represents components of the legal health record. It is not the complete legal health record.[facility]
--- OUTSIDE RECORDS SUMMARY | 2025-03-29 16:55 | XMS_ITS | Clinical Summary ---
Author Organization [facility] Address [address] [place] [address] Phone Care Team Providers Care Program Therapist Name Role Phone Partha Burnett MD Primary Care Provider [phone] Alycia Rolle MD Unavailable [phone] Partha Burnett MD Unavailable [phone] Allergies Active Allergy Reactions Criticality Noted Date Comments Penicillins Hives,Other (See Comments) Low 05/09/2020 LAST TOOK THIS MED AT 18 YEARS OLD. Medications cholecalciferol (VITAMIN D3) 25 MCG (1,000 [...] areas on feet; Duration: 30 days Active urectbic-jemqty-e scorbic acid (COLLAGEN 1500 PLUS C) 500 [...] MOUTH DAILY 90 capsule 3 025 Active gabapentin (NEURONTIN) 100 MG capsule Take 100 mg by mouth 3 (three) times a day. Pt reports stopped taking on 03/24 025 Active FLUoxetine (PROZAC) 20 MG capsule TAKE 1 CAPSULE(20 MG) BY MOUTH DAILY 90 capsule 3 025 2024 Discontinued Active Problems Problem Noted Date Diagnosed Date Lumbar spinal stenosis 03/28/2025 Lumbar foraminal stenosis 03/28/2025 Assessment & Plan (03/28/2025 7:55 AM EST): L2/L3 L3/L4 L4/L5 Recurrent herpes simplex 07/08/2024 History of lump [...] the right upper lobe on CT at [facility] in 2023. Likely related to previous [...] She is interested in meeting with a variety performer and I have given her a list of financial service professional in the area. 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 Question possible GERD component vs [...] Encounters Date Type Department Care Team Description 03/29/2025 Ancillary Orders [facility],Outside Imaging [address] [place] [address] Cornell Sarabia MD 03/29/2025 Ancillary Orders [facility],Outside Imaging [address] [place] [address] Cornell Sarabia MD 03/28/2025 8:30 AM EST Office Visit [facility] Primary Care [address] [place] [address] Arden Andrea DO Spinal stenosis of lumbar region, unspecified whether neurogenic claudication present (Primary Dx); Lumbar foraminal stenosis; Sensory neuropathy 03/28/2025 Telephone [facility] Care [address] [place] [address] Sparkle Pope RN outside records 03/25/2025 Telephone [facility] Care [address] [place] [address] Partha Burnett MD Appointment 03/25/[address] [place] [address] Partha Burnett MD 03/22/2025 12:05 AM EST Hospital Encounter [facility],Outside Imaging [address] [place] [address] Unknown, MD Cornell Arrived 03/22/2025 Hospital Encounter [facility],Outside Imaging [address] [place] [address] Cornell Sarabia MD Arrived 03/19/2025 Refill [facility] [address] [place] [address] Partha Burnett MD Medication Refill 03/18/[address] [facility] Primary Care [facility] [address] [place] [address] ProviderMarcelo MD 02/06/[address] 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 Not on file Not on file Last Filed Vital Signs Vital Sign Reading Time Taken Comments Blood Pressure 120/64 03/28/2025 8:37 AM EST Pulse 61 03/28/2025 8:37 AM EST Temperature 35.7 C (96.3 F) 03/28/2025 8:37 AM EST Respiratory Rate 18 12/15/2024 8:20 AM EDT Oxygen Saturation 97% 03/28/2025 8:37 AM EST Inhaled Oxygen Concentration - - Weight 81.5 kg (179 lb 9.6 oz) 03/28/2025 8:37 A M EST Height 168.9 cm (5' 6.5 ) 12/12/2024 10:06 AM ED T Body Mass Index 28.55 12/12/2024 10:06 AM EDT Plan of Treatment Upcoming Encounters Date Type Department Care Team (Late st Contact Info) Description 11/17/2024 Procedure Pass [facility], [facility] [address] [place] [address] 04/21/2025 3:45 PM EST Office Visit [facility] Primary Care [facility] [address] [place] [address] Partha Burnett MD [address] [place] [address], [address] [place] [address] 05/12/2025 1:15 PM EST Office Visit [facility] Physical Therapy Clinic [address] [place] [address] Arden Andrea, DO [address] [place] [address] Yonathan Jimenez PT [address] [place] [address] 05/19/2025 9:30 AM EST Office Visit [facility] Physical Therapy Clinic [address] [place] [address] Arden Andrea, [address] [place] [address] [email or web address] Yonathan Jimenez, PT [address] [place] [address] 05/24/2025 9:30 AM EST Office Visit [facility] Physical Therapy Clinic [address] [place] [address] Arden Andrea, DO [address] [place] [address] Yonathan Jimenez, PT [address] [place] [address] 05/31/2025 8:45 AM EST Office Visit [facility] Physical Therapy Clinic [address] [place] [address] Arden Andrea, DO [address] [place] [address] Yonathan Jimenez, PT [address] [place] [address] 06/02/2025 8:45 AM EST Office Visit [facility] Therapy [facility] [address] [place] [address] Arden Andrea, DO [address] [place] [address] [email or web address] Yonathan Jimenez, PT [address] [place] [address] 06/07/2025 2:00 PM EDT Office Visit [facility] Physical Therapy Clinic [address] [place] [address] Arden Andrea, DO [address] [place] [address] [email or web address] Yonathan Jimenez, PT [address] [place] [address] 06/09/2025 8:45 AM EDT Office Visit [facility] [address] [place] [address] Arden Andrea, DO [address] [place] [address] [email or web address] Yonathan Jimenez, PT [address] [place] [address] [email or web address] 06/14/2025 8:00 AM EDT Office Visit [facility] [address] [place] [address] Arden Andrea, DO [address] [place] [address] [email or web address] Tony Yesseniaroman, PT [address] [place] [address] [email or web address] 07/04/2025 12:30 PM EDT Appointment [address] [address] Sofie Velazquez MD 15 [facility], 2nd [place] [address] [email or web address] Health Maintenance Due Date Last Done Comments COLOGUARD 08/01/1996 FIT TEST 08/01/1996 FOBT 08/01/1996 SIGMOIDOSCOPY 08/01/1996 VIRTUAL COLONOSCOPY 08/01/1996 COLONOSCOPY 05/11/2025 05/11/2020 COLORECTAL CANCER SCREENING 05/11/2025 CREATININE LEVEL 05/11/2025 05/11/2024, , 06/13/2023, Additional history exists DEPRESSION SCREENING 05/11/2025 05/11/2024 POTASSIUM LEVEL 05/11/2025 05/11/2024, 02/28, 06/13/2023, Additional history exists COVID-19 VACCINE ( season) 2025 12/22/2024, 03/25/2024, 05/27/2023, Additional history exists TSH LEVEL 07/01/2025 07/01/2024, 05/01, 01/22/2024, Additional history exists BLOOD PRESSURE 09/26/2025 03/28/2025 SMOKING Hx and SMOKELESS TOBACCO SCREENING 03/28/2026 03/28/2025 MAMMOGRAM 10/29/2026 10/29/2024, 05/01, 03/06/2021, Additional history exists LIPID PANEL 11/13/2027 11/12/2022, 05/30, 05/09/2021, Additional history exists Adult Td,Tdap Booster 05/05/2029 05/05/2019 OSTEOPOROSIS SCREENING INITIAL (ONE-TIME) 03/28/2034 Postponed from 08/01/2016 (Not Clinically Appropriate) ZOSTER VACCINES Completed 04/12/2020, 02/10/2020 PNEUMOCOCCAL VACCINES (50+ years) Completed 10/23/2022, 12/03/2017, 10/07/2017 HEPATITIS C SCREENING Completed 11/12/2022 RSV VACCINE Completed 12/09/2022 INFLUENZA VACCINE Completed 12/22/2024, , 12/06/2022, Additional history exists HEPATITIS A VACCINES Aged Out No long [...] this topic Medical Devices Implanted Type Area Engraving Supervisor Device Identifier Shelf Expiration Date Model / Serial / Lot Lens Lens Bilateral: Eye Procedures Procedure Name Priority Date/Time Associated Diagnosis Comments XR SPINE OUTSIDE (NO INTERPRETATION) Routine 03/22/2025 12:[address] SPINE (BONE) OUTSIDE (NO INTERPRETATION) Routine 03/22/2025 12:00 AM EST OUTSIDE IMAGING Routine 03/17/2025 2:27 PM EST [...] Recently Relevant to Health Maintenance Results * XR SPINE OUTSIDE(NO INTERPRETATION) (03/22/2025 12:05 AM EST) Narrative Record, 03/29/2025 11:40 AM EST This study is for PACS storage only and not for interpretation. Procedure Note Record, 03/29/2025 This study is for PACS storage only and not for interpretation. us Unknown Unknown IMRosemary OUTSIDE IMAGING W/OUT INT ERPRETATION Final Result * CT Spine (Bone) Focus Outside (No Interpretation) (03/22/2025 12:00 AM EST) Narrative Record, 03/29/2025 11:40 AM EST This study is for PACS storage only and not for interpretation. Procedure Note Record, 03/29/2025 This study is for PACS storage only and not for interpretation. us Unknown Unknown MD HORN OUTSIDE IMAGING W/OUT INT ERPRETATION Final Result * Outside Imaging Report Only (03/17/2025 2:27 [...] EDT) TSH 0.76 0.27 - 4.20 uIU/mL [facility] Blood 07/01/2024 10:3 2 AM EDT 07/01/2024 10:37 AM EDT us Partha Burnett MD LAB BLOOD BKR ORDERABLES F inal Result [facility] [address] [place] [address] * (ABNORMAL) Basic metabolic panel (05/11/2024 10:25 AM EST) SODIUM 139 133 - 146 mmol/L [facility] CHLORIDE 103 96 - 108 mmol/L [facility] POTASSIUM 4.9 3.3 - 5.1 mmol/L [facility] CO2 27 21 - 35 mmol/L [facility] BUN 17 6 - 19 mg/dL [facility] CREATININE 1.00 0.5 - 1.5 mg/dL [facility] GLUCOSE 105(H) 70 - 99 mg/dL [facility] CALCIUM 9.4 8.4 - 10.3 mg/dL [facility] EGFR 60 >59 mL/min/1.7 3m2 [facility] Comment:Estimated glomerular filtration rate calculated using the CKD-EPI refit equation. ANION GAP 14 10 - 20 mmol/L [facility] Blood 05/11/2024 10:2 5 AM EST 05/11/2024 10:30 AM EST Partha Burnett MD LAB BLOOD BKR ORDERABLES F inal Result Performing Organization Address [facility] Co de Phone Number [address] [address] * Hepatitis C antibody, qualitative (11/12/2022 8:10 AM EDT) HCV NON-REACTIV E NON-REACTI VE [facility] Blood 11/12/2022 8:10 AM EDT 11/12/2022 8:12 AM EDT Partha Burnett MD LAB BLOOD BKR ORDERABLES F inal Result Performing Organization Address City/[facility]/ZIP Co de Phone Number [address] [address] * (ABNORMAL) Lipid panel (11/12/2022 8:10 AM EDT) HDL 37 mg/dL [facility] Comment: Interpretation <40 mg/dL: Low HDL cholesterol (major risk factor for CHD) Greater than or equal to 60 mg/dL: High HDL cholesterol ( negative risk factor for CHD) HDL - cholesterol is affected by a number of factors, e.g. smoking, excerise, hormones, sex and age. CHOLESTEROL 191 0 - 240 mg/dL [facility] TRIGLYCERIDES 194(H) 30 - 160 mg/dL [facility] LDL 115 50 - 129 mg/dL [facility] Comment: LDL levels in terms of risk for coronary heart disease: <100 mg/dL: Optimal 100-129 mg/dL: Near or above optimal 130-159 mg/dL: Borderline high 160-189 mg/dL: High >190 mg/dL: Very High CARDIAC RISK RATIO 5.2(H) 3.3 - 4.4 [facility] Blood 11/12/2022 8:10 AM EDT 11/12/2022 8:12 AM EDT us Partha Burnett MD LAB BLOOD BKR ORDERABLES F inal Result [facility] [address] [place] [address] * ENDOSCOPY, COLON (05/11/2020 1:48 PM EST) Narrative Transcriptions Shorty Greer MD - 05/11/2020 1:48 PM EST Patient Name: Lilly Isra Attending MD:: SHORTY GREER MD Procedure Date: 05/11/2020 1:48 PM Date of : 1950 Age: 69 Admit Type: Outpatient Gender: Female Room: [place] [address] Referring MD: DIPIKA STEVENS MD Exam Type: [...] monitored continuously. The Olympus adult variable colonoscope [id number] #5was introduced through the anus and advanced [...] 1:48 PM Procedure Code(s): --- Professional --- 61154, Colonoscopy, flexible; diagnostic, including collection of specimen(s) by brushing or washing, when performed (separateprocedure) --- Technical --- 48063, Colonoscopy, flexible; diagnostic, including collection of specimen(s) by brushing or washing, when performed (separateprocedure) Diagnosis Code(s): --- Professional --- Z86.010, Personal history of colonic polyps K57.30, Diverticulosis of large intestine without perforation or abscess without bleeding --- Technical --- Z86.010, Personal history of colonic polyps K57.30, Diverticulosis of large intestine without perforation or abscess without bleeding CPT copyright 2018 [employer]. All rights reserved. The codes documented in this report are preliminary and upon driver sales reviewmay be revised to meet current compliance requirements. Procedure Date: 05/11/2020 1:48:15 PM [address] [place] [address] Dipika Stevens MD GI PROCEDURE ORDERABLES Fin al Result from Last 3 Months or Most Recently Relevant to Health Maintenance Insurance MEDICARE PART A & B [facility] MEDICARE PART A & B [facility] MEDICARE PART A & B [facility] MEDICARE PART A & B MEDICARE PART A & B [facility] MEDICARE PART A & B [employer] MEDICARE PART A & B [employer] [facility] MEDICARE PART A & B [facility] MEDICARE PART A & B [employer] Care Teams Program Therapist Relationship Specialty Start Date End Date Partha Burnett MD [address] [place] [address], [address] [place] [address] PCP - General Internal Medicine 07/11/21 Alycia Rolle MD [address] [place] [address], [address] [place] [address] [email or web address] Obstetrics and Gynecology 07/11/21 Partha Burnett MD [address] [place] [address], [address] [place] [address] Insurance Assigned Provider 07/05/23 Additional Source Comments The information contained in this document represents components of the legal health record. It is not the complete legal health record.[facility]
--- OUTSIDE RECORDS SUMMARY | 2025-03-29 16:55 | XMS_ITS | Encounter Summary ---
Author Organization [facility] Address [address] [address] [place] [address] Phone Care Team Providers Care Online Health And Fitness Coach Name Role Phone Partha Burnett MD Primary Care Provider [phone] Alycia Rolle MD Unavailable [phone] Partha Burnett MD Unavailable [phone] Reason for Visit * Reason Onset Date Comments Appointment 03/25/2025 Encounter Details Date Type Department Care Team (Late st Contact Info) Description 03/25/[address] 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 Primary Care Clinic [address] [place] [address] Partha Burnett MD [address] [facility] [place] [address] 05/12/2025 1:15 PM EST Office Visit [facility] Physical Therapy Clinic [address] [place] [address] Arden Andrea, DO [address] [place] [address] Yonathan Jimenez, PT [address] [place] [address] 05/19/2025 9:30 AM EST Office Visit [facility] Physical Therapy Clinic [address] [place] [address] Arden Andrea, DO [address] [place] [address] Yonathan Jimenez, PT [address] [place] [address] 05/24/2025 9:30 AM EST Office Visit [facility] Physical Therapy Clinic [address] [place] [address] Arden Andrea, DO [address] [place] [address] Yonathan Jimenez, PT [address] [place] [address] 05/31/2025 8:45 AM EST Office Visit [facility] Physical Therapy Clinic [address] [place] [address] Arden Andrea, DO [address] [place] [address] Yonathan Jimenez, PT [address] [place] [address] 06/02/2025 8:45 AM EST Office Visit [facility] Physical Therapy Clinic [address] [place] [address] Arden Andrea, DO [address] [place] [address] Yonathan Jimenez, PT [address] [place] [address] 06/07/2025 2:00 PM EDT Office Visit [facility] Physical Therapy Clinic [address] [place] [address] Arden Andrea, DO [address] [place] [address] [email or web address] Yonathan Jimenez, PT [address] [place] [address] 06/09/2025 8:45 AM EDT Office Visit [facility] Physical Therapy [facility] [address] [place] [address] Arden Andrea, DO [address] [place] [address] Yonathan Jimenez, PT [address] [place] [address] 06/14/2025 8:00 AM EDT Office Visit [facility] Physical Therapy [facility] [address] [place] [address] Arden Andrea DO [address] [place] [address] [email or web address] Yonathan Jimenez, PT [address] [place] [address] 07/04/2025 12:30 PM EDT Appointment [facility] [address] [place] [address] Sofie Velazquez MD [address] [facility], 2nd [place] [address] documented as of this encounter Visit Diagnoses Not on filedocumented in this encounter Additional Health Concerns Assessment Noted Time PHQ-2 Depression Total Score: 1 05/11/19 25 8:14 AM EST documented as of this encounter Care Teams Online Health And Fitness Coach Relationship Specialty Start Date End Date Partha Burnett MD [address] [place] [address], [address] [place] [address] PCP - General Internal Medicine 07/11/21 Alycia Rolle MD [address] [facility], [address] [place] [address] Obstetrics and Gynecology 07/11/21 Partha Burnett MD [address] [place] [address], [address] [place] [address] Insurance Assigned Provider 07/05/23 documented as of this encounter Additional Source Comments The information contained in this document represents components of the legal health record. It is not the complete legal health record.[facility]
--- OUTSIDE RECORDS SUMMARY | 2025-03-29 16:55 | XMS_ITS | Encounter Summary ---
Author Organization [facility] Address [address] [place] [address] Phone Care Team Providers Care Boathouse Keeper Name Role Phone Torsten Weller MD Primary Care Provider Moira Griffin MD Primary Care Provider [phone] Partha Burnett MD Primary Care Provider +- [phone] Alycia Rolle MD Unavailable [phone] Partha Burnett MD Unavailable [phone] Reason for Referral * Physical Therapy (Routine) - Closed Specialty Diagnoses / Procedures Referred By Duyen hyde Referred To Contact Physical Therapy Diagnoses Encounter for rehabilitation Right Hip Pain Procedures Right Hip Mild OA & Slight OLIVE- Maintain Hip ROM-Hip & Core Strengthening- Improve Gait & Balance- HEP- Evaluate & Treat Beck Brown MD Phone: tel: fax: [email or web address] [address] [address] Phone: tel: Referral ID Status Reason Start Date Expiration Date Visits Re quested Visits Authorized [id number] Closed 06/29/2019 03/30/2020 15 15 Encounter Details Date Type Department Care Team (Latest Contact Info) Description 05/31/2019 Transcribe Orders [facility] 4 [place] [address] Beck Brown MD [address] [place] [phone] [email or web address] Encounter for rehabilitation (Primary Dx) Social [...] st Contact Info) Description 11/17/2024 Procedure Pass [address] [address] 04/21/2025 3:45 PM EST Office Visit [facility] [address] [place] [address] Partha Burnett MD [address] [place] [address], [address] [place] [address] 05/12/2025 1:15 PM EST Office Visit [facility] [address] [place] [address] Arden Andrea, DO [address] [place] [address] Yonathan Jimenez PT 8 [place] [address] 05/19/2025 9:30 AM EST Office Visit [facility] [address] [place] [address] [place] [address] Arden Andrea, DO [address] [place] [address] Yonathan Jimenez, PT 8 [place] [address] 05/24/2025 9:30 AM EST Office Visit [facility] [address] [place] [address] Arden Andrea, DO [address] [place] [address] Yonathan Jimenez, PT 8 [place] [address] 05/31/2025 8:45 AM EST Office Visit [facility] [address] [place] [address] Arden Andrea, DO 22 [place] [address] Yonathan Jimenez, PT 8 [place] [address] 06/02/2025 8:45 AM EST Office Visit [facility] 8 [place] [address] Arden Andrea, DO 22 [place] [address] Tony Yesseniaroman, PT 8 [place] [address] 06/07/2025 2:00 PM EDT Office Visit [facility] [address] [place] [address] Arden Andrea, DO 22 [place] [address] [email or web address] Yonathan Jimenez, PT 8 [place] [address] 06/09/2025 8:45 AM EDT Office Visit [facility] [address] [place] [address] Arden Andrea, DO 22 [place] [address] Yonathan Jimenez, PT 8 [place] [address] 06/14/2025 8:00 AM EDT Office Visit [facility] [address] [place] [address] Arden Andrea, DO 22 [place] [address] [email or web address] Yonathan Jimenez, PT 8 [place] [address] 07/04/2025 12:30 PM EDT Appointment [address] [address] Sofie Velazquez MD 15 [facility], 2nd [place] [address] [email or web address] Scheduled Referrals Name Type Priority Associated Diagnoses Orde r Schedule Ambulatory referral to [facility] Physical Therapy Outpatient Referral Routine Encounter for rehabilitation Ordered: 05/31/2019 documented as of this encounter Visit Diagnoses Diagnosis Encounter for rehabilitation- Primary documented in this encounter Additional Health Concerns Infection Onset Date Last Indicated Resolved Time CoV-Risk 07/23/2020 07/23/2020 2020 1:23 AM EDT COVID-19 12/29/2022 12/29/2022 01/19/2023 1:32 AM EDT documented as of this encounter Care Teams Boathouse Keeper Relationship Specialty Start Date End Date Torsten Weller MD PCP - General Family Medicine 04/21/17 03/05/21 Moira Griffin MD PCP - General Internal Medicine 03/06/21 07/10/21 Partha Burnett MD [address] [place] [address], [address] [place] [address] PCP - General Internal Medicine 07/11/21 Alycia Rolle MD [address] [place] [address], [address] [place] [address] Obstetrics and Gynecology 07/11/21 Partha Burnett MD [address] [place] [address], [address] [place] [address] Insurance Assigned Provider 07/05/23 documented as of this encounter Additional Source Comments The information contained in this document represents components of the legal health record. It is not the complete legal health record.[facility]
--- OUTSIDE RECORDS SUMMARY | 2025-03-29 16:55 | XMS_ITS | Encounter Summary ---
Author Organization [facility] Address [address] [facility] [address] [place] [address] Phone Care Team Providers Care Occupational Therapist Assistants Name Role Phone Partha Burnett MD Primary Care Provider [phone] Alycia Rolle MD Unavailable [phone] Partha Burnett MD Unavailable [phone] Encounter Details Date Type Department Care Team (Late st Contact Info) Description 03/29/2025 Ancillary Orders [facility],Outside Imaging [address] [place] [address] Unknown, Unknown, MD Social History Tobacco Use Types Packs/Day Years [...] 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 Not on file documented as of this encounter Plan of Treatment Upcoming Encounters Date Type Department Care Team (Late st Contact Info) Description 11/17/2024 Procedure Pass [facility], [facility] [address] [place] [address] 04/21/2025 3:45 PM EST Office Visit [facility] [address] [place] [address] Partha Burnett MD 22 [facility], [address] [place] [address] 05/12/2025 1:15 PM EST Office Visit [facility] Physical Therapy [facility] [address] [place] [address] Arden Andrea, DO 22 [place] [address] Yonathan Jimenez, PT 8 [place] [address] 05/19/2025 9:30 AM EST Office Visit [facility] [address] [place] [address] Arden Andrea, DO 22 [place] [address] Yonathan Jimenez, PT 8 [place] [address] 05/24/2025 9:30 AM EST Office Visit [facility] [address] [place] [address] Arden Andrea, DO 22 [place] [address] [email or web address] Yonathan Jimenez, PT 8 [place] [address] 05/31/2025 8:45 AM EST Office Visit [facility] Therapy [facility] [address] [place] [address] Arden Andrea, DO 22 [place] [address] Yonathan Jimenez, PT 8 [place] [address] 06/02/2025 8:45 AM EST Office Visit [facility] [address] [place] [address] Arden Andrea, DO 22 [place] [address] Yonathan Jimenez, PT 8 [place] [address] 06/07/2025 2:00 PM EDT Office Visit [facility] Therapy [facility] [address] [place] [address] Arden Andrea, DO [address] [place] [address] Yonathan Jimenez, PT 8 [place] [address] 06/09/2025 8:45 AM EDT Office Visit [facility] Therapy [facility] [address] [place] [address] Arden Andrea, DO 22 [place] [address] Daniel Jimenezrobertoroman, PT 8 [place] [address] 06/14/2025 8:00 AM EDT Office Visit [facility] Therapy [facility] [address] [place] [address] Arden Andrea, DO 22 [place] [address] Yonathan Jimenez, PT 8 [place] [address] 07/04/2025 12:30 PM EDT Appointment [facility], [facility] 30 [place] [address] Sofie Velazquez MD 15 [facility], 2nd [place] [address] documented as of this encounter Results * CT Spine (Bone) [...] documented as of this encounter Care Teams Occupational Therapist Assistants Relationship Specialty Start Date End Date Partha Burnett MD [address] [place] [address], [address] [place] [address] PCP - General Internal Medicine 07/11/21 Alycia Rolle MD 22 [facility], [address] [place] [address] Obstetrics and Gynecology 07/11/21 Partha Burnett MD [address] [place] [address], [address] [place] [address] (work) [email or web address] Insurance Assigned Provider 07/05/23 documented as of this encounter Additional Source Comments The information contained in this document represents components of the legal health record. It is not the complete legal health record.[facility]
--- OUTSIDE RECORDS SUMMARY | 2025-03-29 16:55 | XMS_ITS | Encounter Summary ---
Author Organization [facility] Address [address] [place] [address] Phone Care Team Providers Care Franchise Broker Name Role Phone Moira Griffin MD Primary Care Provider [phone] Partha Burnett MD Primary Care Provider [phone]- [phone] Alycia Rolle MD Unavailable [phone] Partha Burnett MD Unavailable [phone] Encounter Details Date Type Department Care Team (Late st Contact Info) Description 06/21/2021 Procedure Pass [address] [place] [address] Social History Tobacco Use Types Packs/Day Years [...] 11/17/2024 Procedure Pass [facility], [facility] [address] [place] [address] 04/21/2025 3:45 PM EST Office Visit [facility] Clinic [address] [place] [address] Partha Burnett MD [address] [facility], [address] [place] [address] 05/12/2025 1:15 PM EST Office Visit [facility] Physical Therapy [facility] [address] [place] [address] Arden Andrea, DO 22 [place] [address] Yonathan Jimenez, PT 8 [place] [address] 05/19/2025 9:30 AM EST Office Visit [facility] Physical Therapy Clinic [address] [place] [address] Arden Andrea, DO [address] [place] [address] Yonathan Jimenez, PT 8 [place] [address] 05/24/2025 9:30 AM EST Office Visit [facility] Physical Therapy Clinic [address] [place] [address] Arden Andrea, DO [address] [place] [address] Yonathan Jimenez, PT 8 [place] [address] 05/31/2025 8:45 AM EST Office Visit [facility] Physical Therapy [facility] [address] [place] [address] Arden Andrea, DO [address] [place] [address] Yonathan Jimenez, PT 8 [place] [address] 06/02/2025 8:45 AM EST Office Visit [facility] Physical Therapy [facility] [address] [place] [address] Arden nAdrea, DO [address] [place] [address] Yonathan Jimenez, PT 8 [place] [address] 06/07/2025 2:00 PM EDT Office Visit [facility] Physical Therapy Clinic [address] [place] [address] Arden Andrea, DO [address] [place] [email or web address] Yonathan Jimenez, PT 8 [place] [address] 06/09/2025 8:45 AM EDT Office Visit [facility] Physical Therapy Clinic [address] [place] [address] Arden Andrea, DO [address] [place] [address] Yonathan Jimenez, PT 8 [place] [address] 06/14/2025 8:00 AM EDT Office Visit [facility] Physical Therapy [facility] 8 [place] [address] Arden Andrea DO 22 [place] [address] [email or web address] Yonathan Jimenez, PT 8 [place] [address] 07/04/2025 12:30 PM EDT Appointment [facility] 30 [place] [address] Sofie Velazquez MD [address] [facility], 2nd [place] [address] documented as of this encounter Visit Diagnoses Not on filedocumented in this encounter Additional Health Concerns Infection Onset Date Last Indicated Resolved Time COVID-19 12/29/2022 12/29/2022 01/19/2023 1:32 AM EDT documented as of this encounter Care Teams Franchise Broker Relationship Specialty Start Date End Date Moira Griffin MD PCP - General Internal Medicine 03/06/21 07/10/21 Partha Burnett MD [address] [place] [address], [address] [place] [address] PCP - General Internal Medicine 07/11/21 Alycia Rolle MD [address] [place] [address], [address] [place] [address] Obstetrics and Gynecology 07/11/21 Partha Burnett MD [address] [place] [address], [address] [place] [address] [email or web address] Insurance Assigned Provider 07/05/23 documented as of this encounter Additional Source Comments The information contained in this document represents components of the legal health record. It is not the complete legal health record.[facility]
--- OUTSIDE RECORDS SUMMARY | 2025-03-29 16:55 | XMS_ITS | Encounter Summary ---
Author Organization [facility] Address [address] [place] [address] Phone Care Team Providers Care Hull Molder Name Role Phone Moira Griffin MD Primary Care Provider Partha Burnett MD Primary Care Provider + [phone] Alycia Rolle MD Unavailable [phone] Partha Burnett MD Unavailable [phone] Encounter Details Date Type Department Care Team (Late st Contact Info) Description 03/06/2021 Ancillary Orders [facility],[address] [address] System, Provider Not In, [place] [address] Social History Tobacco Use Types Packs/Day Years [...] st Contact Info) Description 11/17/2024 Procedure Pass [facility], [facility] 30 [place] [address] 04/21/2025 3:45 PM EST Office Visit [facility] Primary Care [facility] [address] [place] [address] Partha Burnett MD 22 [facility], [address] [place] [address] 05/12/2025 1:15 PM EST Office Visit [facility] Physical Therapy Clinic [address] [place] [address] Arden Andrea, [place] [address] Yonathan Jimenez, PT 8 [place] [address] 05/19/2025 9:30 AM EST Office Visit [facility] Physical Therapy [facility] [address] [place] [address] Arden Andrea, [place] [address] Yonathan Jimenez, PT 8 [place] [address] 05/24/2025 9:30 AM EST Office Visit [facility] Therapy [facility] [address] [place] [address] Arden Andrea, [place] [address] Yonathan Jimenez, PT 8 [place] [address] 05/31/2025 8:45 AM EST Office Visit [facility] Physical Therapy [facility] [address] [place] [address] Arden Andrea, DO 22 [place] [address] [email or web address] Yonathan Jimenez, PT 8 [place] [address] 06/02/2025 8:45 AM EST Office Visit [facility] Therapy [facility] [address] [place] [address] Arden Andrea, [place] [address] Yonathan Jimenez, PT 8 [place] [address] 06/07/2025 2:00 PM EDT Office Visit [facility] Therapy [facility] [address] [place] [address] Arden Andrea, [place] [address] Yonathan Jimenez, PT 8 [place] [address] 06/09/2025 8:45 AM EDT Office Visit [facility] Physical Therapy [facility] [address] [place] [address] Arden Andrea, [place] [address] [email or web address] Yonathan Jimenez, PT 8 [place] [address] 06/14/2025 8:00 AM EDT Office Visit [facility] Physical Therapy [facility] [address] [place] [address] Arden Andrea, [place] [address] Yonathan Jimenez, PT 8 [place] [address] 07/04/2025 12:30 PM EDT Appointment [facility], [facility] [address] [place] [address] Sofie Velazquez MD 15 [facility], 2nd [place] [address] documented as of this encounter Results * [...] documented as of this encounter Care Teams Hull Molder Relationship Specialty Start Date End Date Moira Griffin MD PCP - General Internal Medicine 03/06/21 07/10/21 Partha Burnett MD 22 [facility], [address] [place] [address] PCP - General Internal Medicine 07/11/21 Alycia Rolle MD [address] [place] [address], [address] [place] [address] Obstetrics and Gynecology 07/11/21 Partha Burnett MD [address] [place] [address], [address] [place] [address] [email or web address] Insurance Assigned Provider 07/05/23 documented as of this encounter Additional Source Comments The information contained in this document represents components of the legal health record. It is not the complete legal health record.[facility]
--- OUTSIDE RECORDS SUMMARY | 2025-03-29 16:55 | XMS_ITS | Encounter Summary ---
Author Organization [facility] Address [address] [facility] [address] [place] [address] Phone Care Team Providers Care Hairspring Truer Name Role Phone Partha Burnett MD Primary Care Provider [phone] Alycia Rolle MD Unavailable [phone] Partha Burnett MD Unavailable [phone] Encounter Details Date Type Department Care Team (Late st Contact Info) Description 07/07/2024 Procedure Pass 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, [facility] [address] [place] [address] 04/21/2025 3:45 PM EST Office Visit [facility] Clinic [address] [place] [address] Partha Burnett MD 22 [facility], [address] [place] [address] 05/12/2025 1:15 PM EST Office Visit [facility] Physical Therapy Clinic [address] [place] [address] Arden Andrea, DO 22 [place] [address] Yonathan Jimenez, PT 8 [place] [address] 05/19/2025 9:30 AM EST Office Visit [facility] Physical Therapy [facility] [address] [place] [address] Arden Andrea, DO 22 [place] [address] Yonathan Jimenez, PT 8 [place] [address] 05/24/2025 9:30 AM EST Office Visit [facility] Physical Therapy [facility] [address] [place] [address] Arden Andrea, DO 22 [place] [address] Yonathan Jimenez, PT 8 [place] [address] 05/31/2025 8:45 AM EST Office Visit [facility] Physical Therapy [facility] [address] [place] [address] Arden Andrea, DO 22 [place] [address] Yonathan Jimenez, PT 8 [place] [address] 06/02/2025 8:45 AM EST Office Visit [facility] Physical Therapy [facility] [address] [place] [address] Arden Andrea, DO 22 [place] [address] Yonathan Jimenez, PT 8 [place] [address] 06/07/2025 2:00 PM EDT Office Visit [facility] Physical Therapy [facility] [address] [place] [address] Arden Andrea, DO [address] [place] [address] Yonathan Jimenez, PT 8 [place] [address] 06/09/2025 8:45 AM EDT Office Visit [facility] Physical Therapy [facility] [address] [place] [address] Arden Andrea, DO 22 [place] [address] Yonathan Jimenez, PT 8 [place] [address] 06/14/2025 8:00 AM EDT Office Visit [facility] Physical Therapy [facility] [address] [place] [address] Arden Andrea, DO 22 [place] [address] Yonathan Jimenez, PT 8 [place] [address] 07/04/2025 12:30 PM EDT Appointment [facility], [facility] 30 [place] [address] Sofie Velazquez MD 15 [facility], 2nd [place] [address] documented as of this encounter Visit Diagnoses Not on filedocumented in this encounter Additional Health Concerns Assessment Noted Time PHQ-2 Depression Total Score: 1 05/11/19 25 8:14 AM EST documented as of this encounter Care Teams Hairspring Truer Relationship Specialty Start Date End Date Partha Burnett MD 22 [facility], [address] [place] [address] PCP - General Internal Medicine 07/11/21 Alycia Rolle MD 22 [facility], [address] [place] [address] Obstetrics and Gynecology 07/11/21 Partha Burnett MD [address] [place] [address], [address] [place] [address] Insurance Assigned Provider 07/05/23 documented as of this encounter Additional Source Comments The information contained in this document represents components of the legal health record. It is not the complete legal health record.[facility]
--- OUTSIDE RECORDS SUMMARY | 2025-03-29 16:55 | XMS_ITS | Encounter Summary ---
Author Organization [facility] Address [address] [place] [address] Phone Care Team Providers Care Public Health Advisor Name Role Phone Partha Burnett MD Primary Care Provider [phone] Alycia Rolle MD Unavailable [phone] Partha Burnett MD Unavailable [phone] Encounter Details Date Type Department Care Team (Late st Contact Info) Description 03/18/2025 Orders Only [facility] [address] [place] [address] Provider, MD Marcelo [address] [place] [address] Social History Tobacco Use Types Packs/Day [...] 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 [address] [place] [address] Arden Andrea, DO 22 [place] [address] [email or web address] Yonathan Jimenez, PT 8 [place] [address] 05/19/2025 9:30 AM EST Office Visit [facility] [address] [place] [address] Arden Andrea, DO [address] [place] [address] Yonathan Jimenez, PT 8 [place] [address] 05/24/2025 9:30 AM EST Office Visit [facility] [address] [place] [address] Arden Andrea, DO 22 [place] [address] Yonathan Jimenez, PT 8 [place] [address] 05/31/2025 8:45 AM EST Office Visit [facility] [address] [place] [address] Arden Andrea, [place] [address] Yonathan Jimenez, PT 8 [place] [address] 06/02/2025 8:45 AM EST Office Visit [facility] [address] [place] [address] Arden Andrea, DO 22 [place] [address] [email or web address] Yonathan Jimenez, PT 8 [place] [address] 06/07/2025 2:00 PM EDT Office Visit [facility] [address] [place] [address] Arden Andrea, DO [address] [place] [address] [email or web address] Yonathan Jimenez, PT 8 [place] [address] 06/09/2025 8:45 AM EDT Office Visit [facility] [address] [place] [address] Arden Andrea, DO 22 [place] [address] Yonathan Jimenez, PT 8 [place] [address] 06/14/2025 8:00 AM EDT Office Visit [facility] [address] [place] [address] Arden Andrea, DO 22 [place] [address] Yonathan Jimenez, PT 8 [place] [address] 07/04/2025 12:30 PM EDT Appointment [facility], [facility] [address] [place] [address] Sofie Velazquez MD 15 [facility], 2nd [place] [address] documented as of this encounter Procedures Procedure [...] documented as of this encounter Care Teams Public Health Advisor Relationship Specialty Start Date End Date Partha Burnett MD [address] [place] [address], [address] [place] [address] PCP - General Internal Medicine 07/11/21 Alyica Rolle MD [address] [place] [address], [address] [place] [address] [email or web address] Obstetrics and Gynecology 07/11/21 Partha Burnett MD [address] [place] [address], [address] [place] [address] Insurance Assigned Provider 07/05/23 documented as of this encounter Additional Source Comments The information contained in this document represents components of the legal health record. It is not the complete legal health record.[facility]
--- OUTSIDE RECORDS SUMMARY | 2025-03-29 16:55 | XMS_ITS | Encounter Summary ---
Author Organization [facility] Address [address] [facility] [address] [place] [address] Phone Care Team Providers Care Parachute Packer Name Role Phone Partha Burnett MD Primary Care Provider [phone] Alycia Rolle MD Unavailable [phone] Partha Burnett MD Unavailable [phone] Encounter Details Date Type Department Care Team (Late st Contact Info) Description 04/30/2022 Procedure Pass [place] Admitting Dept - Virtual Department [address] [place] [address] Social History Tobacco Use Types Packs/Day Years [...] high school, GED, job training, learning the Upper Sorbian language, technical skills, or developing parenting skills)? 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 file documented as of this encounter Plan of Treatment Upcoming Encounters Date Type Department Care Team (Late st Contact Info) Description 11/17/2024 Procedure Pass [address] [address] 04/21/2025 3:45 PM EST Office Visit [facility] 22 [place] [address] Partha Burnett MD 22 [facility], [address] [place] [address] 05/12/2025 1:15 PM EST Office Visit [facility] 8 [place] [address] Arden Andrea DO 22 [place] [address] Yonathan Jimenez, PT 8 [place] [address] 05/19/2025 9:30 AM EST Office Visit [facility] [address] [place] [address] Arden Andrea, DO [address] [place] [address] Yonathan Jimenez, PT 8 [place] [address] 05/24/2025 9:30 AM EST Office Visit [facility] [address] [place] [address] Arden Andrea, DO [address] [place] [address] Yonathan Jimenez, PT 8 [place] [address] 05/31/2025 8:45 AM EST Office Visit [facility] [address] [place] [address] Arden Andrea, DO [address] [place] [address] Yonathan Jimenez, PT 8 [place] [address] 06/02/2025 8:45 AM EST Office Visit [facility] [address] [place] [address] Arden Andrea, DO [address] [place] [address] Yonathan Jimenez, PT 8 [place] [address] 06/07/2025 2:00 PM EDT Office Visit [facility] [address] [place] [address] Arden Andrea, [place] [address] Yonathan Jimenez, PT 8 [place] [address] 06/09/2025 8:45 AM EDT Office Visit [facility] [address] [place] [address] Arden Andrea, [place] [address] [email or web address] Yonathan Jimenez, PT 8 [place] [address] 06/14/2025 8:00 AM EDT Office Visit [facility] 8 [place] [address] Arden Andrea, [place] [address] Yonathan Jimenez, PT 8 [place] [address] 07/04/2025 12:30 PM EDT Appointment [address] [address] Sofie Velazquez MD 15 [facility], 2nd [place] [address] documented as of this encounter Visit Diagnoses Not on filedocumented in this encounter Additional Health Concerns Infection Onset Date Last Indicated Resolved Time COVID-19 12/29/2022 12/29/2022 01/19/2023 1:32 AM EDT Assessment Noted Time PHQ-2 Depression Total Score: 0 02/28/20 12:56 PM EST documented as of this encounter Care Teams Parachute Packer Relationship Specialty Start Date End Date Partha Burnett MD [address] [place] [address], [address] [place] [address] PCP - General Internal Medicine 07/11/21 Alycia Rolle MD [address] [place] [address], [address] [place] [address] [email or web address] Obstetrics and Gynecology 07/11/21 Partha Burnett MD [address] [place] [address], [address] [place] [address] Insurance Assigned Provider 07/05/23 documented as of this encounter Additional Source Comments The information contained in this document represents components of the legal health record. It is not the complete legal health record.[facility]
--- OUTSIDE RECORDS SUMMARY | 2025-03-29 16:55 | XMS_ITS | Encounter Summary ---
Author Organization [facility] Address [address] [place] [address] Phone Care Team Providers Care Terrazzo Tile Maker Name Role Phone Partha Burnett MD Primary Care Provider [phone] Alycia Rolle MD Unavailable [phone] Partha Burnett MD Unavailable [phone] Encounter Details Date Type Department Care Team (Latest Contact Info) Description 11/17/2024 Transcribe Orders Virtual Department [address] [place] [address] Sofie Velazquez MD 15 [facility], 2nd [place] [address] 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 documented as of this encounter Plan of Treatment Upcoming Encounters Date Type Department Care Team (Late st Contact Info) Description 11/17/2024 Procedure Pass [facility], [address] [address] 04/21/2025 3:45 PM EST Office Visit [facility] 22 [place] [address] Partha Burnett MD 22 [facility], [address] [place] [address] 05/12/2025 1:15 PM EST Office Visit [facility] [address] [place] [address] Arden Andrea, [place] [address] Yonathan Jimenez, PT 8 [place] [address] 05/19/2025 9:30 AM EST Office Visit [facility] [address] [place] [address] Arden Andrea, DO 22 [place] [address] Yonathan Jimenez, PT 8 [place] [address] 05/24/2025 9:30 AM EST Office Visit [facility] [address] [place] [address] Arden Andrea, DO 22 [place] [address] Yonathan Jimenez, PT 8 [place] [address] 05/31/2025 8:45 AM EST Office Visit [facility] [address] [place] [address] Arden Andrea, DO 22 [place] [address] [email or web address] Yonathan Jimenez, PT 8 [place] [address] 06/02/2025 8:45 AM EST Office Visit [facility] [address] [place] [address] Arden Andrea, DO 22 [place] [address] Yonathan Jimenez, PT 8 [place] [address] 06/07/2025 2:00 PM EDT Office Visit [facility] [address] [place] [address] Arden Andrea, DO [address] [place] [address] [email or web address] Yonathan Jimenez, PT 8 [place] [address] 06/09/2025 8:45 AM EDT Office Visit [facility] [address] [place] [address] Arden Andrea, DO 22 [place] [address] Yonathan Jimenez, PT 8 [place] [address] 06/14/2025 8:00 AM EDT Office Visit [facility] [address] [place] [address] Arden Andrea, DO 22 [place] [address] Tony Yesseniaroman, PT 8 [place] [address] [email or web address] 07/04/2025 12:30 PM EDT Appointment [facility], [facility] [address] [place] [address] Sofie Velazquez MD 15 [facility], 2nd [place] [address] [email or web address] Scheduled Orders Name Type Priority Associated Diagnoses Orde r Schedule Mammogram Screening (Bilateral) Imaging Routine Breast screening Expected: 12/18/2024, Expires: 11/17/2025 documented as of this encounter Visit Diagnoses Diagnosis Breast screening- Primary Breast screening, unspecified documented in this encounter Additional Health Concerns Assessment Noted Time PHQ-2 Depression Total Score: 1 05/11/19 25 8:14 AM EST documented as of this encounter Care Teams Terrazzo Tile Maker Relationship Specialty Start Date End Date Partha Burnett MD 22 [facility], [address] [place] [address] PCP - General Internal Medicine 07/11/21 Alycia Rolle MD 22 [facility], [address] [place] [address] [email or web address] Obstetrics and Gynecology 07/11/21 Partha Burnett MD 22 [facility], [address] [place] [address] Insurance Assigned Provider 07/05/23 documented as of this encounter Additional Source Comments The information contained in this document represents components of the legal health record. It is not the complete legal health record.[facility]
--- OUTSIDE RECORDS SUMMARY | 2025-03-29 16:55 | XMS_ITS | Patient Health Record ---
Author Organization [facility] Address [address] [facility] [place] [address] Care Team Providers Care Administration Manager Name Role Phone Partha Burnett MD Primary Care Provider Antonio Hanna Unavailable [phone] Allergies Allergen (clinical drug ingredient) Drug/Non Drug [...] W/U Status Risk Notes Problem Tinea unguium (868684325) Tinea unguium (B35.1) Active confirmed Problem Non-pressure [...] Order Date *Liver Function Test (LFT) 02/09/2021 [id number] SKIN/TISSUE 10/31/2023 [id number] SKIN/TISSUE 02/03/2024 Insurance Providers Payer Name Payer Address Payer Phone Subscriber Number Group Number Insured Name Patient Relationship to Insured Coverage Start Date Coverage End Date Medicare National [employer] [address] [place] [address] [id number] Lilly Dhaliwal Self - patient is the insured [facility] [address] [place] [address] [id number] Lilly Dhaliwal Self - patient is the insured Medical (General) History Medical History History ICD Code Back,Hip,and Knee pain Broken bones CAD (Cholesterol) Cancer Cataracts Gout Headaches/Migraines High blood pressure Numbness Reflux ( GERD) Sciatica chronic sinusitis Measles Mumps Chicken pox Surgical History Surgery Date(Month/Year) lumpectomy 1994 tonsillectomy 1970 left rotator cuff 02/06/23
--- OUTSIDE RECORDS SUMMARY | 2025-03-29 16:55 | XMS_ITS | Encounter Summary ---
Author Organization [facility] Address [address] [facility] [address] [place] [address] Phone Care Team Providers Care Salvage Winder Name Role Phone Partha Burnett MD Primary Care Provider [phone] Alycia Rolle MD Unavailable [phone] Partha Burnett MD Unavailable [phone] Reason for Visit * Reason Onset Date Comments outside records 03/28/2025 Encounter Details Date Type Department Care Team (Late st Contact Info) Description 03/28/2025 Telephone [facility] Clinic [address] [place] [address] Sparkle Pope, RN 22 [place] [address] [email or web address] outside records Social History Tobacco Use Types Packs/Day Years [...] 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 Andrea in office. Patient has appointment this morning at 8:30 am and he is requesting [facility] 03/22/25 ED notes. Updated Care Everywhere and ED notes pulled into record. Sent to Dr. Andrea to review. documented in this encounter Plan of Treatment Upcoming Encounters Date Type Department Care Team (Late st Contact Info) Description 11/17/2024 Procedure Pass [facility] [address] [place] [address] 04/21/2025 3:45 PM EST Office Visit [facility] Primary Care [address] [place] [address] Partha Burnett MD [address] [place] [address], [address] [place] [address] 05/12/2025 1:15 PM EST Office Visit [facility] [address] [place] [address] [place] [address] Arden Andrea, DO 22 [place] [address] Yonathan Jimenez, PT 8 [place] [address] 05/19/2025 9:30 AM EST Office Visit [facility] [address] [place] [address] [place] [address] Arden Andrea, DO 22 [place] [address] Yonathan Jimenez, PT 8 [place] [address] 05/24/2025 9:30 AM EST Office Visit [facility] [address] [place] [address] [place] [address] Arden Andrea, DO 22 [place] [address] Yonathan Jimenez, PT 8 [place] [address] 05/31/2025 8:45 AM EST Office Visit [facility] [address] [place] [address] Arden Andrea, DO 22 [place] [address] Yonathan Jimenez, PT 8 [place] [address] 06/02/2025 8:45 AM EST Office Visit [facility] [address] [place] [address] Arden Andrea, DO [address] [place] [email or web address] Yonathan Jimenez, PT 8 [place] [address] 06/07/2025 2:00 PM EDT Office Visit [facility] [address] [place] [address] Arden Andrea, DO [address] [place] [address] Yonathan Jimenez, PT 8 [place] [address] 06/09/2025 8:45 AM EDT Office Visit [facility] [address] [place] [address] Arden Andrea, DO 22 [place] [address] Yonathan Jimenez, PT 8 [place] [address] 06/14/2025 8:00 AM EDT Office Visit [facility] 8 [place] [address] Arden Andrea DO 22 [place] [address] Yonathan Jimenez, PT 8 [place] [address] 07/04/2025 12:30 PM EDT Appointment [facility] 30 [place] [address] Sofie Velazquez MD 15 [facility], 2nd [place] [address] documented as of this encounter Visit Diagnoses Not on filedocumented in this encounter Additional Health Concerns Assessment Noted Time PHQ-2 Depression Total Score: 1 05/11/19 25 8:14 AM EST documented as of this encounter Care Teams Salvage Winder Relationship Specialty Start Date End Date Partha Burnett MD [address] [place] [address], [address] [place] [address] PCP - General Internal Medicine 07/11/21 Alycia Rolle MD 22 [facility], [facility] [address] [place] [address] [email or web address] Obstetrics and Gynecology 07/11/21 Partha Burnett MD [address] [place] [address], [address] [place] [address] [email or web address] Insurance Assigned Provider 07/05/23 documented as of this encounter Additional Source Comments The information contained in this document represents components of the legal health record. It is not the complete legal health record.[facility]
--- OUTSIDE RECORDS SUMMARY | 2025-03-29 16:55 | XMS_ITS | Encounter Summary ---
Author Organization [facility] Address [address] [place] [address] [place] [address] Phone Care Team Providers Care Certified Adaptive Physical Educator Name Role Phone Partha Burnett MD Primary Care Provider [phone] Alycia Rolle MD Unavailable [phone] Partha Burnett MD Unavailable [phone] Encounter Details Date Type Department Care Team (Late st Contact Info) Description 03/25/2025 Telephone [facility] [address] [place], [place] [id number] Partha Burnett MD 22 [facility], [address] [place] [address] [email or web address] Social History Tobacco Use Types Packs/Day Years [...] 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, [address] [address] 04/21/2025 3:45 PM EST Office Visit [facility] [address] [place] [address] Partha Burnett MD 22 [facility], [address] [place] [address] 05/12/2025 1:15 PM EST Office Visit [facility] [address] [place] [address] Arden Andrea, [place] [address] [email or web address] Yonathan Jimenez, PT 8 [place] [address] [email or web address] 05/19/2025 9:30 AM EST Office Visit [facility] [address] [place] [address] Arden Andrea, DO 22 [place] [address] Yonathan Jimenez, PT 8 [place] [address] 05/24/2025 9:30 AM EST Office Visit [facility] [address] [place] [address] Arden Andrea, DO 22 [place] [address] Yonathan Jimenez, PT 8 [place] [address] 05/31/2025 8:45 AM EST Office Visit [facility] [address] [place] [address] Arden Andrea, DO 22 [place] [address] Yonathan Jimenez, PT 8 [place] [address] 06/02/2025 8:45 AM EST Office Visit [facility] [address] [place] [address] Arden Andrea, DO 22 [place] [address] Yonathan Jimenez, PT 8 [place] [address] 06/07/2025 2:00 PM EDT Office Visit [facility] [address] [place] [address] Arden Andrea, DO [address] [place] [address] Yonathan Jimenez, PT 8 [place] [address] 06/09/2025 8:45 AM EDT Office Visit [facility] [address] [place] [address] Arden Andrea, DO 22 [place] [address] Yonathan Jimenez, PT 8 [place] [address] 06/14/2025 8:00 AM EDT Office Visit [facility] [address] [place] [address] Arden Andrea, DO 22 [place] [address] Tony Yesseniaroman, PT 8 [place] [address] 07/04/2025 12:30 PM EDT Appointment [facility], [facility] 30 [place] [address] Sofie Velazquez MD 15 [facility], 2nd [place] [address] documented as of this encounter Visit Diagnoses Not on filedocumented in this encounter Additional Health Concerns Assessment Noted Time PHQ-2 Depression Total Score: 1 05/11/19 25 8:14 AM EST documented as of this encounter Care Teams Certified Adaptive Physical Educator Relationship Specialty Start Date End Date Partha Burnett MD [address] [facility], [address] [place] [address] PCP - General Internal Medicine 07/11/21 Alycia Rolle MD 22 [facility], [address] [place] [address] Obstetrics and Gynecology 07/11/21 Partha Burnett MD [address] [place] [address], [address] [place] [address] Insurance Assigned Provider 07/05/23 documented as of this encounter Additional Source Comments The information contained in this document represents components of the legal health record. It is not the complete legal health record.[facility]
--- OUTSIDE RECORDS SUMMARY | 2025-03-29 16:55 | XMS_ITS | Encounter Summary ---
Author Organization [facility] Address [address] [place] [address] Phone Care Team Providers Care Senior Front End Engineer Name Role Phone Moira Griffin MD Primary Care Provider Partha Burnett MD Primary Care Provider + [phone] Alycia Rolle MD Unavailable [phone] Partha Burnett MD Unavailable [phone] Encounter Details Date Type Department Care Team (Late st Contact Info) Description 03/06/2021 Ancillary Orders [facility],[address] [address] System, Provider Not In, [place] [address] Social History Tobacco Use Types Packs/Day Years [...] st Contact Info) Description 11/17/2024 Procedure Pass [facility], [facility] [address] [place] [address] 04/21/2025 3:45 PM EST Office Visit [facility] Primary Care [facility] [address] [place] [address] Partha Burnett MD 22 [facility], [address] [place] [address] 05/12/2025 1:15 PM EST Office Visit [facility] [address] [place] [address] Arden Andrea, [place] [address] Yonathan Jimenez, PT 8 [place] [address] 05/19/2025 9:30 AM EST Office Visit [facility] [address] [place] [address] Arden Andrea, [place] [address] Yonathan Jimenez, PT 8 [place] [address] 05/24/2025 9:30 AM EST Office Visit [facility] [address] [place] [address] Arden Andrea, [place] [address] [email or web address] Yonathan Jimenez, PT 8 [place] [address] 05/31/2025 8:45 AM EST Office Visit [facility] [address] [place] [address] Arden Andrea, DO [address] [place] [address] Yonathan Jimenez, PT 8 [place] [address] 06/02/2025 8:45 AM EST Office Visit [facility] [address] [place] [address] Arden Andrea, [place] [address] Yonathan Jimenez, PT 8 [place] [address] 06/07/2025 2:00 PM EDT Office Visit [facility] [address] [place] [address] Arden Andrea, [place] [address] Yonathan Jimenez, PT 8 [place] [address] 06/09/2025 8:45 AM EDT Office Visit [facility] [address] [place] [address] Arden Andrea, [place] [address] Yonathan Jimenez, PT 8 [place] [address] 06/14/2025 8:00 AM EDT Office Visit [facility] [address] [place] [address] Arden Andrea, [place] [address] Yonathan Jimenez, PT 8 [place] [address] [email or web address] 07/04/2025 12:30 PM EDT Appointment [facility], [facility] [address] [place] [address] Sofie Velazquez MD [address] [facility], 2nd [place] [address] [email or web address] documented as of this encounter Results * [...] documented as of this encounter Care Teams Senior Front End Engineer Relationship Specialty Start Date End Date Moira Griffin MD PCP - General Internal Medicine 03/06/21 07/10/21 Partha Burnett MD 22 [facility], [address] [place] [address] PCP - General Internal Medicine 07/11/21 Alycia Rolle MD [address] [place] [address], [address] [place] [address] Obstetrics and Gynecology 07/11/21 Partha Burnett MD [address] [place] [address], [address] [place] [address] [email or web address] Insurance Assigned Provider 07/05/23 documented as of this encounter Additional Source Comments The information contained in this document represents components of the legal health record. It is not the complete legal health record.[facility]
--- OUTSIDE RECORDS SUMMARY | 2025-03-29 16:55 | XMS_ITS | Encounter Summary ---
Author Organization [facility] Address [address] [facility] [address] [place] [address] Phone Care Team Providers Care Management Lead Name Role Phone Partha Burnett MD Primary Care Provider [phone] Alycia Rolle MD Unavailable [phone] Partha Burnett MD Unavailable [phone] Encounter Details Date Type Department Care Team (Late st Contact Info) Description 02/07/2022 Procedure Pass [facility], [address] [address] Social History Tobacco Use Types Packs/Day Years [...] high school, GED, job training, learning the Danish language, technical skills, or developing parenting skills)? 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 Not on file documented as of this encounter Plan of Treatment Upcoming Encounters Date Type Department Care Team (Late st Contact Info) Description 11/17/2024 Procedure Pass [facility] [address] [place] [address] 04/21/2025 3:45 PM EST Office Visit [facility] [address] [place] [address] Partha Burnett MD 22 [facility], [address] [place] [address] 05/12/2025 1:15 PM EST Office Visit [facility] [address] [place] [address] Arden Andrea DO [address] [place] [address] Yonathan Jimenez, PT [address] [place] [address] 05/19/2025 9:30 AM EST Office Visit [facility] [address] [place] [address] Arden Andrea, DO [address] [place] [address] Yonathan Jimenez, PT 8 [place] [address] 05/24/2025 9:30 AM EST Office Visit [facility] [address] [place] [address] Arden Andrea, DO [address] [place] [address] Yonathan Jimenez, PT 8 [place] [address] 05/31/2025 8:45 AM EST Office Visit [facility] [address] [place] [address] Arden Andrea, DO [address] [place] [address] Yonathan Jimenez, PT 8 [place] [address] 06/02/2025 8:45 AM EST Office Visit [facility] [address] [place] [address] Arden Andrea, DO [address] [place] [address] Yonathan Jimenez, PT 8 [place] [address] 06/07/2025 2:00 PM EDT Office Visit [facility] [address] [place] [address] Arden Andrea, [place] [address] Yonathan Jimenez, PT 8 [place] [address] 06/09/2025 8:45 AM EDT Office Visit [facility] [address] [place] [address] Arden Andrea, [place] [address] Yonathan Jimenez, PT 8 [place] [address] 06/14/2025 8:00 AM EDT Office Visit [facility] [address] [place] [address] Arden Andrea, [place] [address] [email or web address] Yonathan Jimenez, PT 8 [place] [address] 07/04/2025 12:30 PM EDT Appointment [address] [address] Sofie Velazquez MD 15 [facility], 2nd [place] [address] documented as of this encounter Visit Diagnoses Not on filedocumented in this encounter Additional Health Concerns Infection Onset Date Last Indicated Resolved Time COVID-19 12/29/2022 12/29/2022 01/19/2023 1:32 AM EDT Assessment Noted Time PHQ-2 Depression Total Score: 0 02/28/20 12:56 PM EST documented as of this encounter Care Teams Management Lead Relationship Specialty Start Date End Date Partha Burnett MD [address] [place] [address], [address] [place] [address] PCP - General Internal Medicine 07/11/21 Alycia Rolle MD [address] [place] [address], [address] [place] [address] [email or web address] Obstetrics and Gynecology 07/11/21 Partha Burnett MD [address] [place] [address], [address] [place] [address] Insurance Assigned Provider 07/05/23 documented as of this encounter Additional Source Comments The information contained in this document represents components of the legal health record. It is not the complete legal health record.[facility]
== END 2025-03-29 13:38 | disposition home or self-care (01) ==
LOC: HO.HNS 13:00
PROVIDERS: Visit Provider Physician Assistant
DX: R20.0 Anesthesia of skin (principal)
CPT/HCPCS: 99204

== ENCOUNTER → 2025-03-29 12:59 | Outpatient (BNVA) | payer MEDICARE, BC, SELFPAY | PROVIDERS: Visit Provider Physician Assistant | DX: R20.0 Anesthesia of skin (principal) | CPT/HCPCS: 99202 ==